=== PATIENT | female | born 1945 | race Caucasian/White ===

== ENCOUNTER 2018-04-25 11:20 | Inpatient (IN) | payer OTHER, BC ==
--- NOTE | 2018-04-25 12:20 | PDOC ---
History of Present Illness - General History Source: Patient Exam Limitations: No Limitations - History of Present Illness Initial Comments: 04/25/18 12:56 Pt is a 72yo F with PMH of HTN, Diverticulosis/Diverticulitis s/p partial colectomy s/p resection, CHF presenting to ED with complaints of diarrhea [id number]. Pt states that the diarrhea started after she was taking Levaquin for skin sores. She was taking vancomycin because she had a history of C. Diff. After 1 month course of vancomycin which was completed last week, pt states she still has diarrhea. She has about 10 bowel movements/day which she describes as liquid. Endorses weakness and chills last night. Denies bloody/tarry stools, nausea, vomiting, decreased PO intake, chest pain, sob, fevers, distention, recent travel, syncope. PMD: Din GI: Lantin ID: Evelio PMH: see hpi PSH: see hpi, appendectomy, cholecystectomy Meds: see med rec Allergies: PCN, Sulfa, tetracycline Social: denies <Thu Mederos - Last Filed: 04/25/18 13:05> <Mc Mcelroy - Last Filed: 04/25/18 16:12> - General Chief Complaint: Diarrhea Stated Complaint: DEHYDRATION / DIARRHEA Time Seen by Provider: 04/25/18 12:17 Past History - Past Medical History Anemia: Yes Asthma: No Cancer: No Cardiac Disorders: Yes (MVP) CVA: No COPD: No CHF: Yes Dementia: No Diabetes: No GI Disorders: Yes (diverticulitis) Disorders: No HTN: Yes Hypercholesterolemia: No Liver Disease: No Seizures: No Thyroid Disease: No - Surgical History Abdominal Surgery: Yes Appendectomy: Yes (colonoscopy/egd) Cardiac Surgery: No Cholecystectomy: No Lung Surgery: No Neurologic Surgery: No Orthopedic Surgery: No - Suicide/Smoking/Psychosocial Hx Smoking Status: No Smoking History: Never smoked Number of Cigarettes Smoked Daily: 0 Hx Alcohol Use: No Drug/Substance Use Hx: No Substance Use Type: None Hx Substance Use Treatment: No <Thu Mederos - Last Filed: 04/25/18 13:05> <Mc Mcelroy - Last Filed: 04/25/18 16:12> - Past Medical History Allergies/Adverse Reactions: Allergies Allergy/AdvReac Type Severity Reaction Status Date / Time Penicillins Allergy Intermediate Rash Verified 04/25/18 11:32 Sulfa (Sulfonamide Allergy Intermediate Rash Verified 04/25/18 11:32 Antibiotics) tetracycline [Tetracycline] Allergy Verified 04/25/18 11:32 Home Medications: Ambulatory Orders Calcium Carbonate/Vitamin D3 [Oyster Shell Calcium 500+D Tab] 1 each PO DAILY Furosemide [Lasix -] 20 mg PO DAILY 02/21/13 Zinc Sulfate [Orazinc -] 220 mg PO DAILY #0 capsule 02/24/13 Multivitamin [Multivitamins] 1 cap PO DAILY 08/02/13 Ascorbic Acid [Vitamin C -] 500 mg PO DAILY 04/25/18 Eluxadoline [Viberzi] 100 mg PO DAILY 04/25/18 Ibuprofen [Motrin -] 600 mg PO BID 04/25/18 Metoprolol Tartrate [Lopressor -] 50 mg PO DAILY 04/25/18 Omeprazole 40 mg PO DAILY 04/25/18 Review of Systems - Review of Systems Constitutional: Yes: Chills, Weakness. No: Fever, Loss of Appetite HEENTM: No: Symptoms Reported Respiratory: No: Cough, Shortness of Breath Cardiac (ROS): No: Chest Pain, Edema, Lightheadedness, Palpitations, Syncope ABD/GI: Yes: See HPI, Diarrhea. No: Blood Streaked Bowels, Constipated, Nausea , Poor Appetite, Poor Fluid Intake, Rectal Bleeding, Vomiting, Abdominal cramping, Tarry Stools : No: Burning, Frequency, Flank Pain Musculoskeletal: No: Back Pain, Joint Pain, Muscle Pain Integumentary: No: Rash Neurological: No: Headache, Numbness, Tingling <Thu Mederos - Last Filed: 04/25/18 13:05> *Physical Exam - Vital Signs Last Vital Signs Temp Pulse Resp BP Pulse Ox 99.6 F 101 H 20 125/65 99 04/25/18 11:27 04/25/18 11:27 04/25/18 11:27 04/25/18 11:27 04/25/18 11:27 <Thu Mederos - Last Filed: 04/25/18 13:05> - Vital Signs Last Vital Signs Temp Pulse Resp BP Pulse Ox 99.6 F 87 18 135/61 96 04/25/18 11:27 04/25/18 15:48 04/25/18 15:48 04/25/18 15:48 04/25/18 15:48 <Mc Mcelroy - Last Filed: 04/25/18 16:12> Moderate Sedation - Procedure Monitoring Vital Signs: Procedure Monitoring Vital Signs Temperature 99.6 F 04/25/18 11:27 Pulse Rate 101 H 04/25/18 11:27 Respiratory Rate 20 04/25/18 11:27 Blood Pressure 125/65 04/25/18 11:27 O2 Sat by Pulse Oximetry (%) 99 04/25/18 11:27 <Thu Mederos - Last Filed: 04/25/18 13:05> - Procedure Monitoring Vital Signs: Procedure Monitoring Vital Signs Temperature 99.6 F 04/25/18 11:27 Pulse Rate 87 04/25/18 15:48 Respiratory Rate 18 04/25/18 15:48 Blood Pressure 135/61 04/25/18 15:48 O2 Sat by Pulse Oximetry (%) 96 04/25/18 15:48 <Mc Mcelroy - Last Filed: 04/25/18 16:12> ED Treatment Course - LABORATORY CBC & Chemistry Diagram: 04/25/18 12:20 04/25/18 12:20 <Thu Mederos - Last Filed: 04/25/18 13:05> - LABORATORY CBC & Chemistry Diagram: 04/25/18 12:20 04/25/18 12:20 - ADDITIONAL ORDERS Additional order review: Laboratory Results 04/25/18 04/25/18 04/25/18 12:37 12:30 12:20 VBG pH 7.41 POC VBG pCO2 37.2 L POC VBG pO2 73.0 H Mixed VBG HCO3 23.3 Sodium 141 Potassium 4.2 Chloride 108 H Carbon Dioxide 23 Anion Gap 10 BUN 20 H Creatinine 1.7 H Creat Clearance w eGFR 29.46 Random Glucose 131 H Lactic Acid 1.7 Calcium 8.7 Total Bilirubin 0.5 AST 46 H ALT 40 Alkaline Phosphatase 160 H Total Protein 7.6 Albumin 3.6 04/25/18 12:20 RBC 6.14 H MCV 60.7 L MCHC 33.1 RDW 16.3 H MPV 9.4 Neutrophils % 78.3 Lymphocytes % 11.6 Monocytes % 8.9 Eosinophils % 0.7 Basophils % 0.5 - Medications Given in the ED: ED Medications Discontinued Medications Generic Name Dose Route Start Last Admin Trade Name Lucrecia PRN Reason Stop Dose Admin Sodium Chloride 500 mls @ 500 mls/hr 04/25/18 12:49 04/25/18 13:05 Normal Saline - IV 04/25/18 13:48 500 mls/hr ASDIR STA Administration Ceftriaxone Sodium 1 gm/ 100 mls @ 200 mls/hr 04/25/18 14:47 04/25/18 15:55 Dextrose IVPB 04/25/18 15:16 200 mls/hr ONCE ONE Administration Protocol <Mc Mcelroy - Last Filed: 04/25/18 16:12> Medical Decision Making - Medical Decision Making 04/25/18 13:00 Pt is a 72yo F with PMH of HTN, Diverticulosis/Diverticulitis s/p partial colectomy s/p resection, CHF presenting to ED with complaints of diarrhea [id number]. Pt states that the diarrhea started after she was taking Levaquin for skin sores. She was taking vancomycin because she had a history of C. Diff. After 1 month course of vancomycin which was completed last week, pt states she still has diarrhea. She has about 10 bowel movements/day which she describes as liquid. Endorses chills last night. Denies bloody/tarry stools, nausea, vomiting , decreased PO intake, chest pain, sob, fevers, distention, syncope, recent travel. Vitals: 99.7 oral temp, HR 101 PE: slight RLQ abdominal tenderness Ddx includes: resistant C.Diff, other infectious diarrhea, colitis -Pt is tolerating PO, is ambulatory, has good follow up. Has episodes of incontinence however pt states that is due to decreased rectal tone as a result of surgeries. -cbc, cmp, lactate, lipase, blood cultures, vbg, c.diff toxin, stool culture -IV fluids -CTAP <Thu Mederos - Last Filed: 04/25/18 13:05> *DC/Admit/Observation/Transfer <Thu Mederos - Last Filed: 04/25/18 13:05> - Discharge Dispostion Decision to Admit order: Yes <Mc Mcelroy - Last Filed: 04/25/18 16:12> Diagnosis at time of Disposition: MARIANN (acute kidney injury) Diarrhea Qualifiers: Diarrhea type: unspecified type Qualified Code(s): R19.7 - Diarrhea, unspecified - Discharge Dispostion Condition at time of disposition: Guarded
[2018-04-25 12:33] LABS: VENOUS PC02 37.2 mmHg (38-52); VENOUS PH 7.41 (7.32-7.42)
[2018-04-25 12:37] LABS: BASO % 0.5 % (0-2.0); EOS % 0.7 % (0-4.5); HEMATOCRIT 37.3 % (32.4-45.2); HEMOGLOBIN 12.3 GM/dL (10.7-15.3); LYMPH % 11.6 % (8-40); MCH 20.1 pg (25.7-33.7); MCHC 33.1 g/dl (32.0-36.0); MEAN CELL VOLUME 60.7 fl (80-96); MEAN PLT VOLUME 9.4 fl (7.5-11.1); MONO % 8.9 % (3.8-10.2); NEUT % 78.3 % (42.8-82.8); PLATELET COUNT 306 K/MM3 (134-434); RBC 6.14 M/mm3 (3.60-5.2); RDW 16.3 % (11.6-15.6); WHITE BLOOD COUNT 16.7 K/mm3 (4.0-10.0)
--- NOTE | 2018-04-25 12:40 | PDOC ---
Attending Attestation - Resident Resident Name: Thu Mederos - ED Attending Attestation I have performed the following: I have examined & evaluated the patient, The case was reviewed & discussed with the resident, I agree w/resident's findings & plan, Exceptions are as noted - HPI HPI: 04/25/18 12:40 72y F hx of rectovesicular fisutla s/p repair c/b cdiff several years ago, anemia, chf, htn, presents with approx 1 month of persistent diarrhea after starting levaquin for a skin wound in february. Pt has been following up with dr Mccall and was on 1 month of vancomycin starting in early march. Her diarrhea has not improved and she feels it is inceasing in frequency and she notes it is coming out even when she is standing or turning in bed. She damian any fever/chills, abd pain, back pain, cp, sob, cough. No blood or melena in the stool, it is watery and yellow/orange in color. PMD; Dr. Cisse GI: Dr Mccall - Physicial Exam PE: 04/25/18 14:46 GENERAL: The patient is awake, alert, and fully oriented, Nontoxic - in no acute distress. HEAD: Normocephalic, atraumatic. EYES: extraocular movements intact, sclera anicteric, conjunctiva clear. ENT: Normal voice, Moist mucous membranes. NECK: Normal range of motion, supple LUNGS: Breath sounds equal, clear to auscultation bilaterally. No wheezes, no rhonchi, no rales. HEART: Regular rate and rhythm, faint systolic murmer ABDOMEN: Mild diffuse right lower quadrant tenderness no rebound or guarding, negative Galvin's EXTREMITIES: Normal range of motion, moving all 4 extremities spontaneously and symmetrically NEUROLOGICAL: No facial assymetry, Normal speech, PSYCH: Normal mood, normal affect. SKIN: Warm, Dry, normal turgor, - Medical Decision Making 04/25/18 14:46 ddx: cdiff, colitis labs reviewed noted for leukocytosis cdiff antigen sent case dw dr. mccall - recommends admissio as pt has a leuckytosis and intractbile dairrhea cr noted for mild france Heart Score/ECG Review - ECG Impressions Comment:: 04/25/18 14:47 Twelve-lead EKG was performed and reviewed by me. There is normal sinus rhythm with a normal rate. Rate of 85 Normal axis
[2018-04-25] MEDS ORDERED: SODIUM CHLORIDE 500 ML IV STA (12:49)
[2018-04-25 13:12] LABS: ALBUMIN 3.6 g/dl (3.4-5.0); ALK PHOS 160 U/L (45-117); ANION GAP 10 MMOL/L (8-16); BILIRUBIN,TOTAL 0.5 mg/dL (0.2-1); BLOOD UREA NITROGEN 20 mg/dL (7-18); CALCIUM 8.7 mg/dL (8.5-10.1); CHLORIDE 108 mmol/L (98-107); CO2 23 mmol/L (21-32); CREATININE 1.7 mg/dL (0.55-1.3); GLUCOSE,RANDOM 131 mg/dL (74-106); POTASSIUM 4.2 mmol/L (3.5-5.1); SGOT/AST 46 U/L (15-37); SGPT/ALT 40 U/L (13-61); SODIUM 141 mmol/L (136-145); TOT PROT 7.6 g/dl (6.4-8.2)
[2018-04-25] MEDS ORDERED: CEFTRIAXONE 1 GM in DEXTROSE 5%-WATER - 100 ML IVPB ONE ×2 (14:06→14:47)
--- NOTE | 2018-04-25 15:11 | HP ---
CHIEF COMPLAINT:diarrhea PCP:Dr. Cisse HISTORY OF PRESENT ILLNESS: Patient is a 72 year old female with past medical history of HTN, Diverticulosis /Diverticulitis s/p partial colectomy, Rectovaginal fistula s/p resection, s/p ileostomy s/p reversal, hx of C. diff infection (2014) and CHF, presented with persistent diarrhea for 1 month. Patient reported diarrhea started after she took Levaquin for skin sores about 2 months ago, which she completed for 10 days. Patient was seen by Dr. Navarro, where she was diagnosed to have C. diff infection and was started on PO VAncomycin for 1 month, which she has completed about a week ago. Patient reported her diarrhea did not resolve, having about at least 10 episodes of loose watery bowel movement per day. Patient denies any fever, chills, headache, dizziness, chest pain, SOB, abdominal pain, urinary symptoms. Denies weight loss or loss of appetite, no nausea or vomiting. ER course was notable for: (1)WBC 16.7 (2)Ceftriaxone 1gm, PO vancomycin 250q6h (3)CT abdomen/pelvis: diffuse colitis Recent Travel:denies PAST MEDICAL HISTORY: HTN Diverticulosis/Diverticulitis s/p partial colectomy Irritable bowel syndrome CHF PAST SURGICAL HISTORY: partial colectomy s/p colostomy reversal s/p rectovaginal fistula resection s/p ileostomy reversal Social History: Smoking:denies Alcohol:denies Drugs: denies Family History: Allergies Penicillins Allergy (Intermediate, Verified 04/25/18 11:32) Rash Sulfa (Sulfonamide Antibiotics) Allergy (Intermediate, Verified 04/25/18 11:32) Rash tetracycline [Tetracycline] Allergy (Verified 04/25/18 11:32) HOME MEDICATIONS: Home Medications Medication Instructions Recorded Calcium Carbonate/Vitamin D3 1 each PO DAILY 02/21/13 [Oyster Shell Calcium 500+D Tab] Furosemide [Lasix -] 20 mg PO DAILY 02/21/13 Zinc Sulfate [Orazinc -] 220 mg PO DAILY #0 capsule 02/24/13 Multivitamin [Multivitamins] 1 cap PO DAILY 08/02/13 Ascorbic Acid [Vitamin C -] 500 mg PO DAILY 04/25/18 Eluxadoline [Viberzi] 100 mg PO DAILY 04/25/18 Ibuprofen [Motrin -] 600 mg PO BID 04/25/18 Metoprolol Tartrate [Lopressor -] 50 mg PO DAILY 04/25/18 Omeprazole 40 mg PO DAILY 04/25/18 REVIEW OF SYSTEMS CONSTITUTIONAL: Absent: fever, chills, diaphoresis, generalized weakness, malaise, loss of appetite, weight change HEENT: Absent: rhinorrhea, nasal congestion, throat pain, throat swelling, difficulty swallowing, mouth swelling, ear pain, eye pain, visual changes CARDIOVASCULAR: Absent: chest pain, syncope, palpitations, irregular heart rate, lightheadedness , peripheral edema RESPIRATORY: Absent: cough, shortness of breath, dyspnea with exertion, orthopnea, wheezing, stridor, hemoptysis GASTROINTESTINAL: Absent: abdominal pain, abdominal distension, nausea, vomiting, diarrhea, constipation, melena, hematochezia GENITOURINARY: Absent: dysuria, frequency, urgency, hesitancy, hematuria, flank pain, genital pain MUSCULOSKELETAL: Absent: myalgia, arthralgia, joint swelling, back pain, neck pain SKIN: Absent: rash, itching, pallor HEMATOLOGIC/IMMUNOLOGIC: Absent: easy bleeding, easy bruising, lymphadenopathy, frequent infections ENDOCRINE: Absent: unexplained weight gain, unexplained weight loss, heat intolerance, cold intolerance NEUROLOGIC: Absent: headache, focal weakness or paresthesias, dizziness, unsteady gait, seizure, mental status changes, bladder or bowel incontinence PSYCHIATRIC: Absent: anxiety, depression, suicidal or homicidal ideation, hallucinations. PHYSICAL EXAMINATION Vital Signs - 24 hr 04/25/18 11:27 Temperature 99.6 F Pulse Rate 101 H Respiratory 20 Rate Blood Pressure 125/65 O2 Sat by Pulse 99 Oximetry (%) GENERAL: Awake, alert, and fully oriented, in no acute distress. HEAD: Normal with no signs of trauma. EYES: PERRLA, EOMI, sclera anicteric, conjunctiva clear. EARS, NOSE, THROAT: Ears normal, oropharynx clear without exudates. Dry mucous membranes. NECK: Normal range of motion, supple without lymphadenopathy, JVD, or masses. LUNGS: Breath sounds equal, clear to auscultation bilaterally. HEART: Regular rate and rhythm, normal S1 and S2 without murmur, rub or gallop. ABDOMEN: Soft, +RLQ tenderness, not distended, normoactive bowel sounds, no guarding, no rebound. MUSCULOSKELETAL: Normal range of motion at all joints. No bony deformities or tenderness. No CVA tenderness. UPPER EXTREMITIES: 2+ pulses, warm, well-perfused. No peripheral edema. LOWER EXTREMITIES: 2+ pulses, warm, well-perfused. No peripheral edema. NEUROLOGICAL: Cranial nerves II-XII intact. Motor 5/5, sensation intact on all extremities. Normal speech. Gait not observed. PSYCHIATRIC: Cooperative. Good eye contact. Appropriate mood and affect. SKIN: Warm, dry, normal turgor, no rashes or lesions noted. Laboratory Results - last 24 hr 04/25/18 04/25/18 04/25/18 12:20 12:20 12:30 WBC 16.7 H RBC 6.14 H Hgb 12.3 Hct 37.3 D MCV 60.7 L MCH 20.1 L D MCHC 33.1 RDW 16.3 H Plt Count 306 D MPV 9.4 Absolute Neuts (auto) 13.1 H Neutrophils % 78.3 Lymphocytes % 11.6 Monocytes % 8.9 Eosinophils % 0.7 Basophils % 0.5 Nucleated RBC % 0 VBG pH 7.41 POC VBG pCO2 37.2 L POC VBG pO2 73.0 H Mixed VBG HCO3 23.3 Sodium 141 Potassium 4.2 Chloride 108 H Carbon Dioxide 23 Anion Gap 10 BUN 20 H Creatinine 1.7 H Creat Clearance w eGFR 29.46 Random Glucose 131 H Lactic Acid Calcium 8.7 Total Bilirubin 0.5 AST 46 H ALT 40 Alkaline Phosphatase 160 H Total Protein 7.6 Albumin 3.6 04/25/18 12:37 WBC RBC Hgb Hct MCV MCH MCHC RDW Plt Count MPV Absolute Neuts (auto) Neutrophils % Lymphocytes % Monocytes % Eosinophils % Basophils % Nucleated RBC % VBG pH POC VBG pCO2 POC VBG pO2 Mixed VBG HCO3 Sodium Potassium Chloride Carbon Dioxide Anion Gap BUN Creatinine Creat Clearance w eGFR Random Glucose Lactic Acid 1.7 Calcium Total Bilirubin AST ALT Alkaline Phosphatase Total Protein Albumin ASSESSMENT/PLAN: Patient is a 72 year old female with past medical history of HTN, Diverticulosis /Diverticulitis s/p partial colectomy, Rectovaginal fistula s/p resection, s/p ileostomy s/p reversal, hx of C. diff infection (2014) and CHF #Diarrhea likely 2/2 infectious colitis, Hx of C. diff -CT abdomen/pelvis: Limited study with findings consistent with diffuse colitis. There is also perirectal lymphadenopathy of uncertain etiology. -Leukocytosis (WBC 16.7) -Stool culture, stool C. diff ordered -Blood cultures pending -Gentle hydration with IV 1/2NS -Continue PO Vancomycin 250mg q6h -IV Ceftriaxone 1gm daily -IV Flagyl 500mg q8h -Bacid 1 tab PO BID -GI (Dr. Navarro) consulted. -ID (Dr. Carreon) consulted. #Hypertension: chronic, controlled -Continue home medications #CHF -Not in acute exacerbation -will continue to monitor -Last echo (2014): mild TR, mild mitral annular calcification, RV systolic pressure elevated at 50-60mmHg #FEN -IV 1/2 NS @75cc/hr -Electrolytes wnl, routine bmp monitoring -Sodium controlled diet #Prophylaxis -Heparin 5000units sq daily #Disposition -Full code -Admit to med-surg Visit type - Emergency Visit Emergency Visit: Yes ED Registration Date: 04/25/18 Care time: The patient presented to the Emergency Department on the above date and was hospitalized for further evaluation of their emergent condition. - New Patient This patient is new to me today: Yes Date on this admission: 04/26/18 - Critical Care Critical Care patient: No
--- NOTE | 2018-04-25 15:31 | EKG ---
Test Reason : Blood Pressure : / mmHG Vent. Rate : 085 BPM Atrial Rate : 085 BPM P-R Int : 142 ms QRS Dur : 088 ms QT Int : 376 ms P-R-T Axes : 046 -04 023 degrees QTc Int : 447 ms NORMAL SINUS RHYTHM POSSIBLE LEFT ATRIAL ENLARGEMENT CANNOT RULE OUT INFERIOR INFARCT , AGE UNDETERMINED CANNOT RULE OUT ANTERIOR INFARCT , AGE UNDETERMINED ABNORMAL ECG WHEN COMPARED WITH ECG OF 14-AUG-2013 09:18, NO SIGNIFICANT CHANGE WAS FOUND Confirmed by OLIVIA PEREZ MD ([id number]) on 04/25/2018 3:31:23 PM Referred By: Confirmed By:OLIVIA PEREZ MD
[2018-04-25] MEDS ORDERED: LACTATED RINGERS SOLUTION 1,000 ML/1,000 ML INFUS.BAG IV SCH (15:45)
[2018-04-25] MEDS ORDERED: CEFTRIAXONE 1 GM/50 ML BAG ONE (15:49)
[2018-04-25] MEDS ORDERED: SODIUM CHLORIDE 0.45% 1,000 ML IV SCH (16:45)
--- NOTE | 2018-04-25 16:59 | PN ---
Teaching Attending Note Name of Resident: Anusha Sainz ATTENDING PHYSICIAN STATEMENT I saw and evaluated the patient. I reviewed the resident's note and discussed the case with the resident. I agree with the resident's findings and plan as documented. SUBJECTIVE: Patient is a 72yo female with PMhx of cdiff colitis x 1 months, stopped taking oral vancomycin for a week , started to have watery diarrhea. OBJECTIVE: Vital Signs Temperature 99.6 F 04/25/18 11:27 Pulse Rate 87 04/25/18 15:48 Respiratory Rate 18 04/25/18 15:48 Blood Pressure 135/61 04/25/18 15:48 O2 Sat by Pulse Oximetry (%) 99 04/25/18 16:41 Initial Vital Signs Temp Pulse Resp BP Pulse Ox 99.6 F 101 H 20 125/65 99 04/25/18 11:27 04/25/18 11:27 04/25/18 11:27 04/25/18 11:27 04/25/18 11:27 GENERAL: Awake, alert, and fully oriented, in no acute distress. HEAD: Normal with no signs of trauma. EYES: PERRLA, EOMI, sclera anicteric, conjunctiva clear. EARS, NOSE, THROAT: Ears normal, oropharynx clear without exudates. Dry mucous membranes. NECK: Normal range of motion, supple without lymphadenopathy, JVD, or masses. LUNGS: Breath sounds equal, clear to auscultation bilaterally. HEART: Regular rate and rhythm, normal S1 and S2 without murmur, rub or gallop. ABDOMEN: Soft, +RLQ tenderness, not distended, normoactive bowel sounds, no guarding, no rebound. MUSCULOSKELETAL: Normal range of motion at all joints. No bony deformities or tenderness. No CVA tenderness. EXTREMITIES: 2+ pulses, warm, well-perfused. No peripheral edema. NEUROLOGICAL: Cranial nerves II-XII intact. Motor 5/5, sensation intact on all extremities. Normal speech. Gait not observed. PSYCHIATRIC: Cooperative. Good eye contact. Appropriate mood and affect. SKIN: Warm, dry, normal turgor, no rashes or lesions noted. CBCD WBC 16.7 K/mm3 (4.0-10.0) H 04/25/18 12:20 RBC 6.14 M/mm3 (3.60-5.2) H 04/25/18 12:20 Hgb 12.3 GM/dL (10.7-15.3) 04/25/18 12:20 Hct 37.3 % (32.4-45.2) D 04/25/18 12:20 MCV 60.7 fl (80-96) L 04/25/18 12:20 MCHC 33.1 g/dl (32.0-36.0) 04/25/18 12:20 RDW 16.3 % (11.6-15.6) H 04/25/18 12:20 Plt Count 306 K/MM3 (134-434) D 04/25/18 12:20 MPV 9.4 fl (7.5-11.1) 04/25/18 12:20 CMP Sodium 141 mmol/L (136-145) 04/25/18 12:20 Potassium 4.2 mmol/L (3.5-5.1) 04/25/18 12:20 Chloride 108 mmol/L (98-107) H 04/25/18 12:20 Carbon Dioxide 23 mmol/L (21-32) 04/25/18 12:20 Anion Gap 10 MMOL/L (8-16) 04/25/18 12:20 BUN 20 mg/dL (7-18) H 04/25/18 12:20 Creatinine 1.7 mg/dL (0.55-1.3) H 04/25/18 12:20 Creat Clearance w eGFR 29.46 (>60) 04/25/18 12:20 Random Glucose 131 mg/dL (74-106) H 04/25/18 12:20 Calcium 8.7 mg/dL (8.5-10.1) 04/25/18 12:20 Total Bilirubin 0.5 mg/dL (0.2-1) 04/25/18 12:20 AST 46 U/L (15-37) H 04/25/18 12:20 ALT 40 U/L (13-61) 04/25/18 12:20 Alkaline Phosphatase 160 U/L (45-117) H 04/25/18 12:20 Total Protein 7.6 g/dl (6.4-8.2) 04/25/18 12:20 Albumin 3.6 g/dl (3.4-5.0) 04/25/18 12:20 Current Medications Generic Name Dose Route Start Last Admin Trade Name Freq PRN Reason Stop Dose Admin Heparin Sodium (Porcine) 5,000 unit 04/25/18 22:00 Heparin - SQ TID [facility] Metronidazole 500 mg in 100 mls @ 100 mls/hr 04/25/18 18:00 Flagyl 500mg Premixed Ivpb - IVPB Q8H-IV JORGE Sodium Chloride 1,000 mls @ 75 mls/hr 04/25/18 16:45 1/2 Normal Saline IV 04/26/18 06:04 ASDIR [facility] Ceftriaxone Sodium 1 gm/ 50 mls @ 100 mls/hr 04/26/18 10:00 Dextrose IVPB DAILY [facility] Lactobacillus Acidophilus 1 tab 04/25/18 22:00 Bacid - PO BID [facility] Vancomycin HCl 250 mg 04/25/18 18:00 Vancomycin Oral Solution PO Q6HPO [facility] Home Medications Medication Instructions Recorded Calcium Carbonate/Vitamin D3 1 each PO DAILY 02/21/13 [Oyster Shell Calcium 500+D Tab] Furosemide [Lasix -] 20 mg PO DAILY 02/21/13 Zinc Sulfate [Orazinc -] 220 mg PO DAILY #0 capsule 02/24/13 Multivitamin [Multivitamins] 1 cap PO DAILY 08/02/13 Ascorbic Acid [Vitamin C -] 500 mg PO DAILY 04/25/18 Eluxadoline [Viberzi] 100 mg PO DAILY 04/25/18 Ibuprofen [Motrin -] 600 mg PO BID 04/25/18 Metoprolol Tartrate [Lopressor -] 50 mg PO DAILY 04/25/18 Omeprazole 40 mg PO DAILY 04/25/18 -CT abdomen/pelvis: Limited study with findings consistent with diffuse colitis. There is also perirectal lymphadenopathy of uncertain etiology. ASSESSMENT AND PLAN: Patient is a 72 year old female with past medical history of HTN, Diverticulosis /Diverticulitis s/p partial colectomy, Rectovaginal fistula s/p resection, s/p ileostomy s/p reversal, hx of C. diff infection (2014) and CHF, presented with recurrent diarrhea after stopping the vancomycin a week ago. # Acute diffuse colitis: with hx of C. diff: Gentle hydration with IV 1/2NS, continue PO Vancomycin 250mg q6h, IV Ceftriaxone 1gm daily -IV Flagyl 500mg q8h, Bacid 1 tab PO BID, GI (Dr. Navarro) consulted., ID (Dr. Carreon) consulted. #Hypertension: controlled, continue home medications #CHF stable now -Last echo (2014): mild TR, mild mitral annular calcification, RV systolic pressure elevated at 50-60mmHg DVTProphylaxis: Heparin 5000units sq daily Full code Admit to med-surg
[2018-04-25] MEDS: VANCOMYCIN 250 MG/5 ML ORAL SOLUTION PO SCH (17:37)
[2018-04-25] MEDS ORDERED: ACETAMINOPHEN 325 MG TABLET (FP) PO PRN (20:39)
[2018-04-25] MEDS: HEPARIN NA (PORCINE) 5,000 UNITS/ML 1ML VIAL SQ SCH (21:15)
[2018-04-25] MEDS ORDERED: LACTOBACILLUS ACIDOPHILUS 1 TABLET PO SCH (22:00)
[2018-04-26] MEDS: VANCOMYCIN 250 MG/5 ML ORAL SOLUTION PO SCH ×4 (00:57→17:40)
[2018-04-26] MEDS: HEPARIN NA (PORCINE) 5,000 UNITS/ML 1ML VIAL SQ SCH ×4 (05:55→22:20)
--- NOTE | 2018-04-26 06:41 | CON.GI ---
Consult Consult Specialty:: GI Referred by:: Subha Cisse - History of Present Illness History of Present Illness: 72 y/o F with PMH of IBS with diarrhea(on Viberzi), relapsing C.diff, s/p left hemicolectomy secondary to perforated diverticulum, was doing well until 5 weeks ago when she took levaquin for skin infection, She subsequently developed diarrhea. She was started on Vancomycin po with no relief of her symptoms. Over night had 6 bowel movements, watery, non-bloody, awakened by the diarrhea. In the ER the WBC was 16,700. Started on Ceftriaxone and Vancomycin. - Past Medical History Cardio/Vascular: Yes: CHF (Chronic diastolid HF), HTN, Other (Paroxysmal SVT in setting of recent perforated diverticulitis) Gastrointestinal: Yes: Diverticulitis (hx with resection), Diverticulosis (hx) Infectious Disease: Yes: MRSA, VREF (2012), Other (Perforated Diverticulitis) - Past Surgical History Past Surgical History: Yes: Colostomy (hx of multiple washout/extensive adhesion ) - Alcohol/Substance Use Hx Alcohol Use: No History of Substance Use: reports: None - Smoking History Smoking history: Never smoked Aproximately how many cigarettes per day: 0 - Social History Usual Living Arrangement: Custodial ADL: Support Services ([place]) History of Recent Travel: No Home Medications - Allergies Allergies/Adverse Reactions: Allergies Allergy/AdvReac Type Severity Reaction Status Date / Time Penicillins Allergy Intermediate Rash Verified 04/25/18 11:32 Sulfa (Sulfonamide Allergy Intermediate Rash Verified 04/25/18 11:32 Antibiotics) tetracycline [Tetracycline] Allergy Verified 04/25/18 11:32 - Home Medications Home Medications: Ambulatory Orders Calcium Carbonate/Vitamin D3 [Oyster Shell Calcium 500+D Tab] 1 each PO DAILY Furosemide [Lasix -] 20 mg PO DAILY 02/21/13 Zinc Sulfate [Orazinc -] 220 mg PO DAILY #0 capsule 02/24/13 Multivitamin [Multivitamins] 1 cap PO DAILY 08/02/13 Ascorbic Acid [Vitamin C -] 500 mg PO DAILY 04/25/18 Eluxadoline [Viberzi] 100 mg PO DAILY 04/25/18 Ibuprofen [Motrin -] 600 mg PO BID 04/25/18 Metoprolol Tartrate [Lopressor -] 50 mg PO DAILY 04/25/18 Omeprazole 40 mg PO DAILY 04/25/18 Physical Exam-GI Vital Signs: Vital Signs Temperature 99.1 F 04/26/18 02:39 Pulse Rate 84 04/26/18 02:39 Respiratory Rate 20 04/26/18 02:39 Blood Pressure 116/53 L 04/26/18 02:39 O2 Sat by Pulse Oximetry (%) 98 04/25/18 23:13 Constitutional: Yes: Well Nourished Eyes: Yes: Conjunctiva Clear HENT: Yes: Atraumatic Neck: Yes: Trachea Midline Cardiovascular: Yes: Regular Rate and Rhythm Respiratory: Yes: CTA Bilaterally Gastrointestinal Inspection: Yes: Distention ...Palpate: Yes: Soft, Tenderness (--mild diffuse). No: Firm/Rigid, Guarding, Hepatomegaly, Mass, Pulsatile Mass, Splenomegaly ...Percussion: Yes: Tympanitic Labs: CBC, BMP 04/25/18 12:20 04/25/18 12:20 CBC,CMP WBC 16.7 K/mm3 (4.0-10.0) H 04/25/18 12:20 RBC 6.14 M/mm3 (3.60-5.2) H 04/25/18 12:20 Hgb 12.3 GM/dL (10.7-15.3) 04/25/18 12:20 Hct 37.3 % (32.4-45.2) D 04/25/18 12:20 MCV 60.7 fl (80-96) L 04/25/18 12:20 MCH 20.1 pg (25.7-33.7) L D 04/25/18 12:20 MCHC 33.1 g/dl (32.0-36.0) 04/25/18 12:20 RDW 16.3 % (11.6-15.6) H 04/25/18 12:20 Plt Count 306 K/MM3 (134-434) D 04/25/18 12:20 MPV 9.4 fl (7.5-11.1) 04/25/18 12:20 Absolute Neuts (auto) 13.1 K/mm3 (1.5-8.0) H 04/25/18 12:20 Neutrophils % 78.3 % (42.8-82.8) 04/25/18 12:20 Lymphocytes % 11.6 % (8-40) 04/25/18 12:20 Monocytes % 8.9 % (3.8-10.2) 04/25/18 12:20 Eosinophils % 0.7 % (0-4.5) 04/25/18 12:20 Basophils % 0.5 % (0-2.0) 04/25/18 12:20 Nucleated RBC % 0 % (0-0) 04/25/18 12:20 Sodium 141 mmol/L (136-145) 04/25/18 12:20 Potassium 4.2 mmol/L (3.5-5.1) 04/25/18 12:20 Chloride 108 mmol/L (98-107) H 04/25/18 12:20 Carbon Dioxide 23 mmol/L (21-32) 04/25/18 12:20 Anion Gap 10 MMOL/L (8-16) 04/25/18 12:20 BUN 20 mg/dL (7-18) H 04/25/18 12:20 Creatinine 1.7 mg/dL (0.55-1.3) H 04/25/18 12:20 Creat Clearance w eGFR 29.46 (>60) 04/25/18 12:20 Random Glucose 131 mg/dL (74-106) H 04/25/18 12:20 Lactic Acid 1.7 mmol/L (0.4-2.0) 04/25/18 12:37 Calcium 8.7 mg/dL (8.5-10.1) 04/25/18 12:20 Total Bilirubin 0.5 mg/dL (0.2-1) 04/25/18 12:20 AST 46 U/L (15-37) H 04/25/18 12:20 ALT 40 U/L (13-61) 04/25/18 12:20 Alkaline Phosphatase 160 U/L (45-117) H 04/25/18 12:20 Total Protein 7.6 g/dl (6.4-8.2) 04/25/18 12:20 Albumin 3.6 g/dl (3.4-5.0) 04/25/18 12:20 Problem List - Problems (1) Infectious diarrhea Assessment/Plan: R> continue IV Flagyl and Vanco Questran po IV hydration bowel rest Code(s): A09 - INFECTIOUS GASTROENTERITIS AND COLITIS, UNSPECIFIED
[2018-04-26] MEDS ORDERED: CEFTRIAXONE 1,000 MG in DEXTROSE 5%-WATER - 50 ML IVPB SCH (10:00)
[2018-04-26] MEDS ORDERED: CEFTRIAXONE 1 GM in DEXTROSE 5%-WATER - 50 ML IVPB SCH (10:00)
[2018-04-26 10:18] LABS: BASO % 0.4 % (0-2.0); EOS % 0.8 % (0-4.5); HEMATOCRIT 31.8 % (32.4-45.2); HEMOGLOBIN 10.5 GM/dL (10.7-15.3); LYMPH % 12.3 % (8-40); MCH 20.1 pg (25.7-33.7); MCHC 33.1 g/dl (32.0-36.0); MEAN CELL VOLUME 60.7 fl (80-96); MEAN PLT VOLUME 9.7 fl (7.5-11.1); MONO % 7.2 % (3.8-10.2); NEUT % 79.3 % (42.8-82.8); PLATELET COUNT 233 K/MM3 (134-434); RBC 5.23 M/mm3 (3.60-5.2); WHITE BLOOD COUNT 14.8 K/mm3 (4.0-10.0)
[2018-04-26] MEDS: CHOLESTYRAMINE/ASPARTAME 4 GM PACKET PO SCH (10:46)
[2018-04-26] MEDS: DEXTROSE 5%-NORMAL SALINE 1,000 ML IV SCH ×2 (10:48→23:04)
[2018-04-26 11:47] LABS: ALBUMIN 2.8 g/dl (3.4-5.0); ALK PHOS 114 U/L (45-117); ANION GAP 8 MMOL/L (8-16); BILIRUBIN,TOTAL 0.6 mg/dL (0.2-1); BLOOD UREA NITROGEN 14 mg/dL (7-18); CALCIUM 8.4 mg/dL (8.5-10.1); CHLORIDE 108 mmol/L (98-107); CO2 26 mmol/L (21-32); CREATININE 1.4 mg/dL (0.55-1.3); GLUCOSE,RANDOM 117 mg/dL (74-106); MAGNESIUM 1.9 mg/dL (1.8-2.4); PHOSPHOROUS 2.3 mg/dL (2.5-4.9); POTASSIUM 3.1 mmol/L (3.5-5.1); SGOT/AST 21 U/L (15-37); SGPT/ALT 38 U/L (13-61); SODIUM 142 mmol/L (136-145); TOT PROT 5.9 g/dl (6.4-8.2)
--- NOTE | 2018-04-26 11:55 | PN ---
Progress Note (short form) - Note Progress Note: ID consult dictated imp/reccd 72 yo female with history of cdiff in 2014, history of IBS on meds since 2016, received levaquin in January for hidradenitis, developed diarrhea and called her GI who gave her po vancomycin liquid- originally the diarrhea improved, then over last one week worsened- never had diarrhea at night before non bloody not formed no new meds no fevers or chills no vomiting lives alone no pets no travel probable cdiff await stool studies agree with hydration po vancomycin/iv metronidazole for now GI f/u for perirectal adenopathy as well noted on ct scan history of IBS- on viberzi since 2017 chronic omeprozole use as well Problem List - Problems (1) Diarrhea Code(s): R19.7 - DIARRHEA, UNSPECIFIED Qualifiers: Diarrhea type: unspecified type Qualified Code(s): R19.7 - Diarrhea, unspecified (2) MARIANN (acute kidney injury) Code(s): N17.9 - ACUTE KIDNEY FAILURE, UNSPECIFIED
--- NOTE | 2018-04-26 14:16 | CONS ---
DATE OF CONSULTATION: DATE OF DICTATION: 04/26/2018 REQUESTING PHYSICIAN: Hospitalist service HISTORY: This is a 72-year-old woman. She is a patient of Dr. Cisse. About 4-6 weeks back she developed daily diarrhea, several episodes nonbloody but not at night with some fecal incontinence. She had previously received a 10-day course of Levaquin by her PMD for a skin infection. She also has a prior history of Clostridium difficile in 2014. She was concerned she was having a repeat Clostridium difficile infection, so she called her hub associate and was prescribed oral vancomycin. She states she took it for 3 weeks. Diarrhea worsened and then she started having it at night with more incontinence. She has no fevers or chills. She has no abdominal pain. She has had no nausea, vomiting, or dysuria. Interestingly, she has not had any weight loss either. PAST MEDICAL HISTORY: Notable for hypertension. She has a prior history of diverticulosis and diverticulitis. Irritable bowel syndrome. CHF. She has a history of rectovaginal fistula. PAST SURGICAL HISTORY: In 2012 she had ruptured diverticulitis. Had a colostomy then reversal followed by an ileostomy then reversal. She reports having had a total of 5 surgeries including rectovaginal fistula repair. She reports Clostridium difficile infection in 2014. As well, she has been on treatment with Viberzi for IBS since 2016 when the drug was approved. ALLERGIES: She is allergic to PENICILLIN, SULFA, and TETRACYCLINE. MEDICATIONS: At home include calcium with vitamin D, Lasix, zinc, multivitamins, vitamin C, Viberzi, Motrin, Lopressor, and omeprazole. SOCIAL HISTORY: Her PMD is Dr. Cisse. Her GI doctor is Dr. Navarro. She lives alone. No history of cigarette or substance use. She did not recall any unusual foods. She has no pets. There is no history of any travel. REVIEW OF SYSTEMS: Notable for nonbloody diarrhea. PHYSICAL EXAMINATION: General: She is awake and alert. She reports feeling improved. Vital Signs: Her T-max is 99.8. Current temperature is 98.4, pulse 85, blood pressure 139/58, respiratory rate 20. She weighs 72 kg. HEENT: She is normocephalic. Her eyes are anicteric. Neck: Supple. Lungs: Clear to auscultation. Heart: Regular rate and rhythm. Abdomen: Soft and nontender. Extremities: Without edema. Skin: In her perirectal area, she has some soft skin excoriations. DIAGNOSTIC DATA: White count on admission was 16.7, repeat 14.8 this morning, hemoglobin 10.5, platelets 233. BUN 20, creatinine 1.7 yesterday and BUN 14 and creatinine 1.4 today. Liver function tests are normal today. Blood cultures are negative after 24 hours. Stool cultures are pending. CAT scan reveals diffuse colitis. There is also perirectal adenopathy. In summary, this is a 72-year-old female with probable Clostridium difficile colitis. Would await stool studies. Agree with hydration, p.o. vancomycin, and IV metronidazole. Stool studies are pending. GI follow up for perirectal adenopathy as well, which was noted on CAT scan. She has a history of IBS on Viberzi. History of chronic omeprazole use as well. Further recommendations to follow. She reports feeling improved today. We will follow up her stool studies. MIGUEL ANGEL LOAIZA M.D. [id number]
--- NOTE | 2018-04-26 17:27 | PN ---
Physical Exam: SUBJECTIVE: Patient seen and examined at bedside this morning. No acute events overnight. Patient still reports multiple episodes of loose watery stools. Denies fever, chills, headache, dizziness, chest pain, SOB, abdominal pain, urinary symptoms. OBJECTIVE: Vital Signs Period Temp Pulse Resp BP Sys/Yañez Pulse Ox Last 24 Hr 98.1 F-99.8 F 70-85 18-20 116-139/50-68 98-98 GENERAL: Awake, alert, and fully oriented, in no acute distress. HEAD: Normal with no signs of trauma. EYES: PERRLA, EOMI, sclera anicteric, conjunctiva clear. EARS, NOSE, THROAT: Ears normal, oropharynx clear without exudates. Dry mucous membranes. NECK: Normal range of motion, supple without lymphadenopathy, JVD, or masses. LUNGS: Breath sounds equal, clear to auscultation bilaterally. HEART: Regular rate and rhythm, normal S1 and S2 without murmur, rub or gallop. ABDOMEN: Soft, +RLQ tenderness, not distended, normoactive bowel sounds, no guarding, no rebound. MUSCULOSKELETAL: Normal range of motion at all joints. No bony deformities or tenderness. No CVA tenderness. UPPER EXTREMITIES: 2+ pulses, warm, well-perfused. No peripheral edema. LOWER EXTREMITIES: 2+ pulses, warm, well-perfused. No peripheral edema. NEUROLOGICAL: Cranial nerves II-XII intact. Motor 5/5, sensation intact on all extremities. Normal speech. Gait not observed. PSYCHIATRIC: Cooperative. Good eye contact. Appropriate mood and affect. SKIN: Warm, dry, normal turgor, no rashes or lesions noted Laboratory Results - last 24 hr 04/26/18 04/26/18 09:50 09:50 WBC 14.8 H RBC 5.23 H Hgb 10.5 L Hct 31.8 L MCV 60.7 L MCH 20.1 L MCHC 33.1 RDW 16.0 H Plt Count 233 D MPV 9.7 Absolute Neuts (auto) 11.7 H Neutrophils % 79.3 Lymphocytes % 12.3 Monocytes % 7.2 Eosinophils % 0.8 Basophils % 0.4 Nucleated RBC % 0 Sodium 142 Potassium 3.1 L Chloride 108 H Carbon Dioxide 26 Anion Gap 8 BUN 14 Creatinine 1.4 H Creat Clearance w eGFR 36.86 Random Glucose 117 H Calcium 8.4 L Phosphorus 2.3 L Magnesium 1.9 Ferritin 153.0 Total Bilirubin 0.6 AST 21 ALT 38 Alkaline Phosphatase 114 Total Protein 5.9 L Albumin 2.8 L Vitamin B12 738 Serum Folate 70 H Active Medications Generic Name Dose Route Start Last Admin Trade Name Kevq PRN Reason Stop Dose Admin Acetaminophen 650 mg 04/25/18 20:39 04/25/18 20:51 Tylenol - PO 650 mg Q6H PRN Administration FEVER Cholestyramine Resin 4 gm 04/26/18 10:00 04/26/18 10:46 Questran Light Packet - PO 4 gm DAILY JORGE Administration Heparin Sodium (Porcine) 5,000 unit 04/25/18 22:00 04/26/18 15:22 Heparin - SQ Not Given TID JORGE Metronidazole 500 mg in 100 mls @ 100 mls/hr 04/25/18 18:00 04/26/18 10:46 Flagyl 500mg Premixed Ivpb - IVPB 100 mls/hr Q8H-IV JORGE Administration Dextrose/Sodium Chloride 1,000 mls @ 125 mls/hr 04/26/18 06:30 04/26/18 10:48 D5-Ns - IV 04/28/18 14:29 125 mls/hr ASDIR JORGE Administration Vancomycin HCl 250 mg 04/25/18 18:00 04/26/18 12:25 Vancomycin Oral Solution PO 250 mg Q6HPO JORGE Administration ASSESSMENT/PLAN: Patient is a 72 year old female with past medical history of HTN, Diverticulosis /Diverticulitis s/p partial colectomy, Rectovaginal fistula s/p resection, s/p ileostomy s/p reversal, hx of C. diff infection (2014), IBS and CHF #Diarrhea likely 2/2 infectious colitis, Hx of C. diff -CT abdomen/pelvis: Limited study with findings consistent with diffuse colitis. There is also perirectal lymphadenopathy of uncertain etiology. -Leukocytosis (WBC 16.7) -Stool culture, stool C. diff ordered -Blood cultures pending -Gentle hydration with IV 1/2NS -Continue PO Vancomycin 250mg q6h -IV Flagyl 500mg q8h -IV Ceftriaxone 1gm daily discontinued -GI (Dr. Navarro) consulted. Recommendations appreciated. -Mobile diet. No fruit, no vegetable, no dairy -Questran 4gm daily -IV hydration -ID (Dr. Carreon) consulted. Recommendations appreciated. -Probably C.diff -Await stool studies -Cont Po vancomycin and Iv metronidazole -GI follow up for perirectal adenopathy. #Hypertension: chronic, controlled -Continue home medications #CHF -Not in acute exacerbation -will continue to monitor -Last echo (2014): mild TR, mild mitral annular calcification, RV systolic pressure elevated at 50-60mmHg #FEN -IV D5-NS @125cc/hr -Electrolytes wnl, routine bmp monitoring -Sodium controlled diet #Prophylaxis -Heparin 5000units sq daily #Disposition -Full code -Admit to med-surg Visit type - Emergency Visit Emergency Visit: Yes ED Registration Date: 04/25/18 Care time: The patient presented to the Emergency Department on the above date and was hospitalized for further evaluation of their emergent condition. - New Patient This patient is new to me today: No - Critical Care Critical Care patient: No
--- NOTE | 2018-04-26 19:28 | PN ---
Teaching Attending Note Name of Resident: Anusha Sainz ATTENDING PHYSICIAN STATEMENT I saw and evaluated the patient. I reviewed the resident's note and discussed the case with the resident. I agree with the resident's findings and plan as documented. SUBJECTIVE: Patient is feeling better with no acute distress, continues to have diarrhea but less than before. OBJECTIVE: Vital Signs Temperature 98.3 F 04/26/18 17:14 Pulse Rate 74 04/26/18 17:14 Respiratory Rate 20 04/26/18 17:14 Blood Pressure 120/50 L 04/26/18 17:14 O2 Sat by Pulse Oximetry (%) 98 04/26/18 09:00 GENERAL: Awake, alert, and fully oriented, in no acute distress. HEAD: Normal with no signs of trauma. EYES: PERRLA, EOMI, sclera anicteric, conjunctiva clear. EARS, NOSE, THROAT: Ears normal, oropharynx clear without exudates. Dry mucous membranes. NECK: Normal range of motion, supple without lymphadenopathy, JVD, or masses. LUNGS: Breath sounds equal, clear to auscultation bilaterally. HEART: Regular rate and rhythm, normal S1 and S2 without murmur, rub or gallop. ABDOMEN: Soft, mild RLQ tenderness, not distended, normoactive bowel sounds, no guarding, no rebound. MUSCULOSKELETAL: Normal range of motion at all joints. No bony deformities or tenderness. No CVA tenderness. EXTREMITIES: 2+ pulses, warm, well-perfused. No peripheral edema. NEUROLOGICAL: Cranial nerves II-XII intact. Motor 5/5, sensation intact on all extremities. Normal speech. Gait not observed. PSYCHIATRIC: Cooperative. Good eye contact. Appropriate mood and affect. SKIN: Warm, dry, normal turgor, no rashes or lesions noted.CBCD WBC 14.8 K/mm3 (4.0-10.0) H 04/26/18 09:50 RBC 5.23 M/mm3 (3.60-5.2) H 04/26/18 09:50 Hgb 10.5 GM/dL (10.7-15.3) L 04/26/18 09:50 Hct 31.8 % (32.4-45.2) L 04/26/18 09:50 MCV 60.7 fl (80-96) L 04/26/18 09:50 MCHC 33.1 g/dl (32.0-36.0) 04/26/18 09:50 RDW 16.0 % (11.6-15.6) H 04/26/18 09:50 Plt Count 233 K/MM3 (134-434) D 04/26/18 09:50 MPV 9.7 fl (7.5-11.1) 04/26/18 09:50 CMP Sodium 142 mmol/L (136-145) 04/26/18 09:50 Potassium 3.1 mmol/L (3.5-5.1) L 04/26/18 09:50 Chloride 108 mmol/L (98-107) H 04/26/18 09:50 Carbon Dioxide 26 mmol/L (21-32) 04/26/18 09:50 Anion Gap 8 MMOL/L (8-16) 04/26/18 09:50 BUN 14 mg/dL (7-18) 04/26/18 09:50 Creatinine 1.4 mg/dL (0.55-1.3) H 04/26/18 09:50 Creat Clearance w eGFR 36.86 (>60) 04/26/18 09:50 Random Glucose 117 mg/dL (74-106) H 04/26/18 09:50 Calcium 8.4 mg/dL (8.5-10.1) L 04/26/18 09:50 Total Bilirubin 0.6 mg/dL (0.2-1) 04/26/18 09:50 AST 21 U/L (15-37) 04/26/18 09:50 ALT 38 U/L (13-61) 04/26/18 09:50 Alkaline Phosphatase 114 U/L (45-117) 04/26/18 09:50 Total Protein 5.9 g/dl (6.4-8.2) L 04/26/18 09:50 Albumin 2.8 g/dl (3.4-5.0) L 04/26/18 09:50 Current Medications Generic Name Dose Route Start Last Admin Trade Name Freq PRN Reason Stop Dose Admin Acetaminophen 650 mg 04/25/18 20:39 04/25/18 20:51 Tylenol - PO 650 mg Q6H PRN Administration FEVER Cholestyramine Resin 4 gm 04/26/18 10:00 04/26/18 10:46 Questran Light Packet - PO 4 gm DAILY JORGE Administration Heparin Sodium (Porcine) 5,000 unit 04/25/18 22:00 04/26/18 15:22 Heparin - SQ Not Given TID JORGE Metronidazole 500 mg in 100 mls @ 100 mls/hr 04/25/18 18:00 04/26/18 17:40 Flagyl 500mg Premixed Ivpb - IVPB 100 mls/hr Q8H-IV JORGE Administration Dextrose/Sodium Chloride 1,000 mls @ 125 mls/hr 04/26/18 06:30 04/26/18 10:48 D5-Ns - IV 04/28/18 14:29 125 mls/hr ASDIR JORGE Administration Vancomycin HCl 250 mg 04/25/18 18:00 04/26/18 17:40 Vancomycin Oral Solution PO 250 mg Q6HPO JORGE Administration Home Medications Medication Instructions Recorded Calcium Carbonate/Vitamin D3 1 each PO DAILY 02/21/13 [Oyster Shell Calcium 500+D Tab] Furosemide [Lasix -] 20 mg PO DAILY 02/21/13 Zinc Sulfate [Orazinc -] 220 mg PO DAILY #0 capsule 02/24/13 Multivitamin [Multivitamins] 1 cap PO DAILY 08/02/13 Ascorbic Acid [Vitamin C -] 500 mg PO DAILY 04/25/18 Eluxadoline [Viberzi] 100 mg PO DAILY 04/25/18 Ibuprofen [Motrin -] 600 mg PO BID 04/25/18 Metoprolol Tartrate [Lopressor -] 50 mg PO DAILY 04/25/18 Omeprazole 40 mg PO DAILY 04/25/18 CT abdomen/pelvis: Limited study with findings consistent with diffuse colitis. There is also perirectal lymphadenopathy of uncertain etiology. ASSESSMENT AND PLAN: Patient is a 72 year old female with past medical history of HTN, Diverticulosis /Diverticulitis s/p partial colectomy, Rectovaginal fistula s/p resection, s/p ileostomy s/p reversal, hx of C. diff infection (2014) and CHF, presented with recurrent diarrhea after stopping the vancomycin a week ago. # Acute diffuse colitis: with hx of C. diff: On PO Vancomycin 250mg q6h, IV Flagyl 500mg q8h, Bacid was discontinued by Dr. mccall (GI), ID (Dr. Carreon ) consult appreciated. On questeran daily. #Hypertension: controlled, continue home medications #CHF stable now -Last echo (2014): mild TR, mild mitral annular calcification, RV systolic pressure elevated at 50-60mmHg DVTProphylaxis: Heparin 5000units sq daily Full code Admit to med-surg
[2018-04-26] MEDS ORDERED: IBUPROFEN 400 MG TABLET (FP) PO ONE (21:28)
[2018-04-26] MEDS ORDERED: RANITIDINE HCL 150 MG TABLET (FP) PO ONE (21:29)
[2018-04-27] MEDS: VANCOMYCIN 250 MG/5 ML ORAL SOLUTION PO SCH ×3 (00:59→13:42)
[2018-04-27 04:14] LABS: SERUM IRON SATURATION 11 % (15-55); TOTAL IRON BINDING CAPACITY 217 ug/dL (250-450); UIBC 194 ug/dL (118-369)
[2018-04-27] MEDS: HEPARIN NA (PORCINE) 5,000 UNITS/ML 1ML VIAL SQ SCH ×4 (05:57→22:03)
[2018-04-27 07:31] LABS: BASO % 0.3 % (0-2.0); EOS % 1.2 % (0-4.5); HEMATOCRIT 31.2 % (32.4-45.2); HEMOGLOBIN 10.2 GM/dL (10.7-15.3); LYMPH % 14.9 % (8-40); MCHC 32.7 g/dl (32.0-36.0); MEAN CELL VOLUME 60.3 fl (80-96); MEAN PLT VOLUME 9.5 fl (7.5-11.1); MONO % 4.6 % (3.8-10.2); PLATELET COUNT 226 K/MM3 (134-434); RBC 5.18 M/mm3 (3.60-5.2); RDW 15.7 % (11.6-15.6)
[2018-04-27 07:39] LABS: ANION GAP 6 MMOL/L (8-16); BLOOD UREA NITROGEN 12 mg/dL (7-18); CHLORIDE 115 mmol/L (98-107); CO2 23 mmol/L (21-32); CREATININE 1.2 mg/dL (0.55-1.3); GLUCOSE,RANDOM 143 mg/dL (74-106); MCH 19.7 pg (25.7-33.7); POTASSIUM 3.2 mmol/L (3.5-5.1); SODIUM 144 mmol/L (136-145)
[2018-04-27 07:40] LABS: CALCIUM 7.8 mg/dL (8.5-10.1); PHOSPHOROUS 1.9 mg/dL (2.5-4.9)
[2018-04-27] MEDS ORDERED: POTASSIUM CHLORIDE TABS 20 MEQ TABLET.ER (FP) PO ONE (07:45)
[2018-04-27] MEDS ORDERED: NAPH,MB-DB/K PH,MBDB POWDER PACKET PO ONE (07:45)
--- NOTE | 2018-04-27 08:04 | PN ---
Teaching Attending Note Name of Resident: Anusha Sainz ATTENDING PHYSICIAN STATEMENT I saw and evaluated the patient. I reviewed the resident's note and discussed the case with the resident. I agree with the resident's findings and plan as documented. SUBJECTIVE: Patient feels better today, less diarrhea. No fever or chills, no shortness of breath. OBJECTIVE: Vital Signs Temperature 97.8 F 04/27/18 06:00 Pulse Rate 61 04/27/18 06:00 Respiratory Rate 20 04/27/18 06:00 Blood Pressure 119/54 L 04/27/18 06:00 O2 Sat by Pulse Oximetry (%) 98 04/26/18 21:00 GENERAL: Awake, alert, and fully oriented, in no acute distress. HEAD: Normal with no signs of trauma. EYES: PERRLA, EOMI, sclera anicteric, conjunctiva clear. EARS, NOSE, THROAT: Ears normal, oropharynx clear without exudates. Dry mucous membranes. NECK: Normal range of motion, supple without lymphadenopathy, JVD, or masses. LUNGS: Breath sounds equal, clear to auscultation bilaterally. HEART: Regular rate and rhythm, normal S1 and S2 without murmur, rub or gallop. ABDOMEN: Soft, mild RLQ tenderness, not distended, normoactive bowel sounds, no guarding, no rebound. MUSCULOSKELETAL: Normal range of motion at all joints. No bony deformities or tenderness. No CVA tenderness. EXTREMITIES: 2+ pulses, warm, well-perfused. No peripheral edema. NEUROLOGICAL: Cranial nerves II-XII intact. Motor 5/5, sensation intact on all extremities. Normal speech. Gait not observed. PSYCHIATRIC: Cooperative. Good eye contact. Appropriate mood and affect. SKIN: Warm, dry, normal turgor, no rashes or lesions noted CBCD WBC 10.0 K/mm3 (4.0-10.0) 04/27/18 06:40 RBC 5.18 M/mm3 (3.60-5.2) 04/27/18 06:40 Hgb 10.2 GM/dL (10.7-15.3) L 04/27/18 06:40 Hct 31.2 % (32.4-45.2) L 04/27/18 06:40 MCV 60.3 fl (80-96) L 04/27/18 06:40 MCHC 32.7 g/dl (32.0-36.0) 04/27/18 06:40 RDW 15.7 % (11.6-15.6) H 04/27/18 06:40 Plt Count 226 K/MM3 (134-434) 04/27/18 06:40 MPV 9.5 fl (7.5-11.1) 04/27/18 06:40 CMP Sodium 144 mmol/L (136-145) 04/27/18 06:40 Potassium 3.2 mmol/L (3.5-5.1) L 04/27/18 06:40 Chloride 115 mmol/L (98-107) H 04/27/18 06:40 Carbon Dioxide 23 mmol/L (21-32) 04/27/18 06:40 Anion Gap 6 MMOL/L (8-16) L 04/27/18 06:40 BUN 12 mg/dL (7-18) 04/27/18 06:40 Creatinine 1.2 mg/dL (0.55-1.3) 04/27/18 06:40 Creat Clearance w eGFR 44.04 (>60) 04/27/18 06:40 Random Glucose 143 mg/dL (74-106) H 04/27/18 06:40 Calcium 7.8 mg/dL (8.5-10.1) L 04/27/18 06:40 Total Bilirubin 0.6 mg/dL (0.2-1) 04/26/18 09:50 AST 21 U/L (15-37) 04/26/18 09:50 ALT 38 U/L (13-61) 04/26/18 09:50 Alkaline Phosphatase 114 U/L (45-117) 04/26/18 09:50 Total Protein 5.9 g/dl (6.4-8.2) L 04/26/18 09:50 Albumin 2.8 g/dl (3.4-5.0) L 04/26/18 09:50 Current Medications Generic Name Dose Route Start Last Admin Trade Name Freq PRN Reason Stop Dose Admin Acetaminophen 650 mg 04/25/18 20:39 04/25/18 20:51 Tylenol - PO 650 mg Q6H PRN Administration FEVER Cholestyramine Resin 4 gm 04/26/18 10:00 04/26/18 10:46 Questran Light Packet - PO 4 gm DAILY JORGE Administration Heparin Sodium (Porcine) 5,000 unit 04/25/18 22:00 04/27/18 05:57 Heparin - SQ Not Given TID JORGE Metronidazole 500 mg in 100 mls @ 100 mls/hr 04/25/18 18:00 04/27/18 02:58 Flagyl 500mg Premixed Ivpb - IVPB 100 mls/hr Q8H-IV JORGE Administration Dextrose/Sodium Chloride 1,000 mls @ 125 mls/hr 04/26/18 06:30 04/26/18 23:04 D5-Ns - IV 04/28/18 14:29 125 mls/hr ASDIR JORGE Administration Potassium Chloride 40 meq 04/27/18 07:45 K-Dur - PO 04/27/18 07:46 ONCE ONE Potassium Phos/Sodium Phos 1 packet 04/27/18 07:45 Phos-Nak Packet - PO 04/27/18 07:46 ONCE ONE Vancomycin HCl 250 mg 04/25/18 18:00 04/27/18 05:56 Vancomycin Oral Solution PO 250 mg Q6HPO JORGE Administration Home Medications Medication Instructions Recorded Calcium Carbonate/Vitamin D3 1 each PO DAILY 02/21/13 [Oyster Shell Calcium 500+D Tab] Furosemide [Lasix -] 20 mg PO DAILY 02/21/13 Zinc Sulfate [Orazinc -] 220 mg PO DAILY #0 capsule 02/24/13 Multivitamin [Multivitamins] 1 cap PO DAILY 08/02/13 Ascorbic Acid [Vitamin C -] 500 mg PO DAILY 04/25/18 Eluxadoline [Viberzi] 100 mg PO DAILY 04/25/18 Ibuprofen [Motrin -] 600 mg PO BID 04/25/18 Metoprolol Tartrate [Lopressor -] 50 mg PO DAILY 04/25/18 Omeprazole 40 mg PO DAILY 04/25/18 CT abdomen/pelvis: Limited study with findings consistent with diffuse colitis. There is also perirectal lymphadenopathy of uncertain etiology. ASSESSMENT AND PLAN: Patient is a 72 year old female with past medical history of HTN, Diverticulosis /Diverticulitis s/p partial colectomy, Rectovaginal fistula s/p resection, s/p ileostomy s/p reversal, hx of C. diff infection (2014) and CHF, presented with recurrent diarrhea after stopping the vancomycin a week ago. # Acute diffuse colitis: with hx of C. diff: On PO Vancomycin 250mg q6h, will discontinue IV Flagyl 500mg q8h, Bacid was discontinued by Dr. mccall (GI), ID (Dr. Carreon) consult appreciated. On questeran daily. #Hypertension: controlled, continue home medications # Hypokalemia will replete. #CHF stable now -Last echo (2014): mild TR, mild mitral annular calcification, RV systolic pressure elevated at 50-60mmHg DVTProphylaxis: Heparin 5000units sq daily Full code Admit to med-surg
[2018-04-27] MEDS ORDERED: POTASSIUM PHOSPHATE 30 MM in SODIUM CHLORIDE 500 ML IVPB ONE (08:07)
[2018-04-27] MEDS: CHOLESTYRAMINE/ASPARTAME 4 GM PACKET PO SCH (09:39)
[2018-04-27] MEDS: DEXTROSE 5%-NORMAL SALINE 1,000 ML IV SCH (11:56)
--- NOTE | 2018-04-27 13:58 | PN ---
Progress Note (short form) - Note Progress Note: cdiff studies are negative, she notes improvement in her diarrhea but also has stomach upset flagyl has been stopped Vital Signs Period Temp Pulse Resp BP Sys/Yañez Pulse Ox Last 24 Hr 97.8 F-98.3 F 58-82 18-20 119-135/49-58 98-98 cor-rrr lungs clear abd soft,nt ext no edema CBC, BMP 04/27/18 06:40 04/27/18 06:40 Microbiology 04/25/18 12:12 Blood - Peripheral Venous Blood Culture - Preliminary NO GROWTH OBTAINED AFTER 48 HOURS, INCUBATION TO CONTINUE FOR 3 DAYS. 04/25/18 12:12 Blood - Peripheral Venous Blood Culture - Preliminary NO GROWTH OBTAINED AFTER 48 HOURS, INCUBATION TO CONTINUE FOR 3 DAYS. 04/26/18 10:00 Stool Clostridium difficile Antigen (BLANCA) - Final 04/26/18 10:00 Stool Clostridium difficile Toxin Assay - Final 04/26/18 10:00 Stool Salmonella/Shigella Culture - Preliminary NO ENTERIC PATHOGENS, 24 HOURS, ON PRIMARY PLATES 04/26/18 10:00 Stool Yersinia Culture - Preliminary NO ENTERIC PATHOGENS, 24 HOURS, ON PRIMARY PLATES 04/26/18 10:00 Stool Vibrio Culture - Final NO GROWTH OF VIBRIO SPECIES OBTAINED 04/26/18 10:00 Stool Escherichia coli 0157 Culture - Final NO GROWTH OF E COLI 0157 OBTAINED a/p diarrhea/colitis resolving-?cause doubt cdiff with negative stool studies-consider d/c vancomycin (flagyl has been stopped) ?role for questran- is it causing her stomach upset would get stools for ova and parasites check esr/crp needs GI f/u -?need for endoscopy perirectal adenopathy as well noted on ct scan history of IBS- on viberzi since 2017 Problem List - Problems (1) Diarrhea Code(s): R19.7 - DIARRHEA, UNSPECIFIED Qualifiers: Diarrhea type: unspecified type Qualified Code(s): R19.7 - Diarrhea, unspecified (2) MARIANN (acute kidney injury) Code(s): N17.9 - ACUTE KIDNEY FAILURE, UNSPECIFIED
--- NOTE | 2018-04-27 14:46 | PN ---
Physical Exam: SUBJECTIVE: Patient seen and examined at bedside this morning. No acute events overnight. Patient reports diarrhea is much improved, with less watery, more formed stools, occuring less frequently (about 5 times overnight). She reports heartburn as well. Denies fever, chills, nausea, vomiting, chest pain, SOB, abdominal pain, urinary symptoms. OBJECTIVE: Vital Signs Period Temp Pulse Resp BP Sys/Yañez Pulse Ox Last 24 Hr 97.8 F-98.3 F 58-82 18-20 119-135/49-58 98-98 GENERAL: Awake, alert, and fully oriented, in no acute distress. HEAD: Normal with no signs of trauma. EYES: PERRLA, EOMI, sclera anicteric, conjunctiva clear. EARS, NOSE, THROAT: Ears normal, oropharynx clear without exudates. Dry mucous membranes. NECK: Normal range of motion, supple without lymphadenopathy, JVD, or masses. LUNGS: Breath sounds equal, clear to auscultation bilaterally. HEART: Regular rate and rhythm, normal S1 and S2 without murmur, rub or gallop. ABDOMEN: Soft, nontender, not distended, normoactive bowel sounds, no guarding, no rebound. MUSCULOSKELETAL: Normal range of motion at all joints. No bony deformities or tenderness. No CVA tenderness. UPPER EXTREMITIES: 2+ pulses, warm, well-perfused. No peripheral edema. LOWER EXTREMITIES: 2+ pulses, warm, well-perfused. No peripheral edema. NEUROLOGICAL: Cranial nerves II-XII intact. Motor 5/5, sensation intact on all extremities. Normal speech. Gait not observed. PSYCHIATRIC: Cooperative. Good eye contact. Appropriate mood and affect. SKIN: Warm, dry, normal turgor, no rashes or lesions noted Laboratory Results - last 24 hr 04/26/18 04/27/18 04/27/18 09:50 06:40 06:40 WBC 10.0 RBC 5.18 Hgb 10.2 L Hct 31.2 L MCV 60.3 L MCH 19.7 L MCHC 32.7 RDW 15.7 H Plt Count 226 MPV 9.5 Absolute Neuts (auto) 7.9 Neutrophils % 79.0 Lymphocytes % 14.9 D Monocytes % 4.6 Eosinophils % 1.2 Basophils % 0.3 Nucleated RBC % 0 Sodium 144 Potassium 3.2 L Chloride 115 H Carbon Dioxide 23 Anion Gap 6 L BUN 12 Creatinine 1.2 Creat Clearance w eGFR 44.04 Random Glucose 143 H Calcium 7.8 L Phosphorus 1.9 L Magnesium 2.0 Iron 23 L TIBC 217 L Iron Saturation 11 L Active Medications Generic Name Dose Route Start Last Admin Trade Name Freq PRN Reason Stop Dose Admin Acetaminophen 650 mg 04/25/18 20:39 04/25/18 20:51 Tylenol - PO 650 mg Q6H PRN Administration FEVER Celecoxib 100 mg 04/27/18 18:00 Celebrex - PO DAILY@1800 [facility] Cholestyramine Resin 4 gm 04/26/18 10:00 04/27/18 09:39 Questran Light Packet - PO 4 gm DAILY [facility] Administration Heparin Sodium (Porcine) 5,000 unit 04/25/18 22:00 04/27/18 13:45 Heparin - SQ Not Given TID [facility] Dextrose/Sodium Chloride 1,000 mls @ 125 mls/hr 04/26/18 06:30 04/27/18 11:56 D5-Ns - IV 04/28/18 14:29 125 mls/hr ASDIR [facility] Administration Potassium Phosphate 30 mm/ 510 mls @ 62.5 mls/hr 04/27/18 08:07 04/27/18 11: 52 Sodium Chloride IVPB 04/27/18 16:16 62.5 mls/hr ONCE ONE Administration Mupirocin 1 applic 04/27/18 14:00 Bactroban 2% Ointment - TP DAILY [facility] Potassium Chloride 40 meq 04/28/18 12:00 K-Dur - PO 04/28/18 12:01 DAILY [facility] Vancomycin HCl 250 mg 04/25/18 18:00 04/27/18 13:42 Vancomycin Oral Solution PO 250 mg Q6HPO JORGE Administration ASSESSMENT/PLAN: Patient is a 72 year old female with past medical history of HTN, Diverticulosis /Diverticulitis s/p partial colectomy, Rectovaginal fistula s/p resection, s/p ileostomy s/p reversal, hx of C. diff infection (2014), IBS and CHF #Diarrhea likely 2/2 infectious colitis, Hx of C. diff -CT abdomen/pelvis: Limited study with findings consistent with diffuse colitis. There is also perirectal lymphadenopathy of uncertain etiology. -Leukocytosis, improved. -Stool culture pending -C.diff Ag and toxin negative -Blood cultures pending -Gentle hydration with IV 1/2NS -IV Flagyl 500mg q8h discontinued -GI (Dr. Navarro) consulted. Recommendations appreciated. -IV Ceftriaxone 1gm daily x7days -Discontinue PO Vancomycin 250mg q6h -[place] diet. No fruit, no vegetable, no dairy -Questran 4gm daily -IV hydration -ID (Dr. Carreon) consulted. Recommendations appreciated. -Await stool studies. Will add stool O&P, ESR/CRP -Consider d/c PO vancomycin -GI follow up for perirectal adenopathy. #Hypertension: chronic, controlled -Continue home medications #CHF -Not in acute exacerbation -will continue to monitor -Last echo (2014): mild TR, mild mitral annular calcification, RV systolic pressure elevated at 50-60mmHg #FEN -IV D5-NS @125cc/hr -Electrolytes wnl, routine bmp monitoring -Sodium controlled diet #Prophylaxis -Heparin 5000units sq daily #Disposition -Full code -Admit to med-surg Visit type - Emergency Visit Emergency Visit: Yes ED Registration Date: 04/25/18 Care time: The patient presented to the Emergency Department on the above date and was hospitalized for further evaluation of their emergent condition. - New Patient This patient is new to me today: No - Critical Care Critical Care patient: No
--- NOTE | 2018-04-27 16:56 | PN ---
Progress Note, Physician History of Present Illness: Patient examined and case discussed with Dr. Navarro GI FOLLOW UP NOTE Patient examined lying in bed. Patient continues to have diarrhea. She states she had 4 episodes of non-bloody, diarrhea during the night. C-diff neg. Stool culture neg. Complains of experiencing heart burn. - Current Medication List Current Medications: Active Medications Acetaminophen (Tylenol -) 650 mg PO Q6H PRN PRN Reason: FEVER Last Admin: 04/25/18 20:51 Dose: 650 mg Celecoxib (Celebrex -) 100 mg PO DAILY@1800 [facility] Cholestyramine Resin (Questran Light Packet -) 4 gm PO DAILY [facility] Last Admin: 04/27/18 09:39 Dose: 4 gm Heparin Sodium (Porcine) (Heparin -) 5,000 unit SQ TID [facility] Last Admin: 04/27/18 13:45 Dose: Not Given Dextrose/Sodium Chloride (D5-Ns -) 1,000 mls @ 125 mls/hr IV ASDIR [facility] Stop: 04/28/18 14:29 Last Admin: 04/27/18 11:56 Dose: 125 mls/hr Ceftriaxone Sodium 1 gm/ (Dextrose) 100 mls @ 200 mls/hr IVPB DAILY [facility]; Protocol Stop: 05/04/18 10:00 Mupirocin (Bactroban 2% Ointment -) 1 applic TP DAILY [facility] Potassium Chloride (K-Dur -) 40 meq PO DAILY [facility] Stop: 04/28/18 12:01 - Objective Vital Signs: Vital Signs Temperature 97.9 F 04/27/18 14:54 Pulse Rate 82 04/27/18 14:54 Respiratory Rate 18 04/27/18 14:54 Blood Pressure 143/70 04/27/18 14:54 O2 Sat by Pulse Oximetry (%) 98 04/27/18 09:00 Constitutional: Yes: No Distress, Calm Eyes: Yes: Conjunctiva Clear HENT: Yes: Normocephalic Cardiovascular: Yes: Regular Rate and Rhythm Respiratory: Yes: Regular, CTA Bilaterally Gastrointestinal: Yes: Normal Bowel Sounds, Soft, Distention (moderate distention). No: WNL, Abdomen, Obese, Ascites, Hematemesis, Hemorrhoids, Hepatomegaly, Hernia, Hyperactive Bowel Sounds, Hypoactive Bowel Sounds, Melena , Palpable Mass, Pulsatile Mass, Rectal Bleeding, Splenomegaly, Tenderness, Tenderness, Epigastrium, Tenderness, Rebound, Vomiting, Other Neurological: Yes: Alert, Oriented Labs: CBC, BMP 04/27/18 06:40 04/27/18 06:40 Microbiology 04/25/18 12:12 Blood - Peripheral Venous Blood Culture - Preliminary NO GROWTH OBTAINED AFTER 48 HOURS, INCUBATION TO CONTINUE FOR 3 DAYS. 04/25/18 12:12 Blood - Peripheral Venous Blood Culture - Preliminary NO GROWTH OBTAINED AFTER 48 HOURS, INCUBATION TO CONTINUE FOR 3 DAYS. 04/26/18 10:00 Stool Clostridium difficile Antigen (BLANCA) - Final 04/26/18 10:00 Stool Clostridium difficile Toxin Assay - Final 04/26/18 10:00 Stool Salmonella/Shigella Culture - Preliminary NO ENTERIC PATHOGENS, 24 HOURS, ON PRIMARY PLATES 04/26/18 10:00 Stool Yersinia Culture - Preliminary NO ENTERIC PATHOGENS, 24 HOURS, ON PRIMARY PLATES 04/26/18 10:00 Stool Vibrio Culture - Final NO GROWTH OF VIBRIO SPECIES OBTAINED 04/26/18 10:00 Stool Escherichia coli 0157 Culture - Final NO GROWTH OF E COLI 0157 OBTAINED <Emelina Hong - Last Filed: 04/28/18 16:22> - Current Medication List Current Medications: Active Medications Acetaminophen (Tylenol -) 650 mg PO Q6H PRN PRN Reason: FEVER Last Admin: 04/25/18 20:51 Dose: 650 mg Cholestyramine Resin (Questran Light Packet -) 4 gm PO DAILY [facility] Last Admin: 04/28/18 10:42 Dose: 4 gm Heparin Sodium (Porcine) (Heparin -) 5,000 unit SQ TID [facility] Last Admin: 04/28/18 14:17 Dose: Not Given Metronidazole (Flagyl 500mg Premixed Ivpb -) 500 mg in 100 mls @ 100 mls/hr IVPB Q8H-IV JORGE Last Admin: 04/28/18 17:47 Dose: Not Given Ceftriaxone Sodium 2 gm/ (Dextrose) 100 mls @ 200 mls/hr IVPB DAILY JORGE; Protocol Melatonin (Melatonin) 5 mg PO HS PRN PRN Reason: INSOMNIA Last Admin: 04/28/18 00:18 Dose: 5 mg Mupirocin (Bactroban 2% Ointment -) 1 applic TP DAILY JORGE Last Admin: 04/28/18 14:18 Dose: 1 applic Pantoprazole Sodium (Protonix -) 40 mg PO DAILY JORGE Last Admin: 04/28/18 10:42 Dose: 40 mg - Objective Vital Signs: Vital Signs Temperature 100.2 F H 04/28/18 14:00 Pulse Rate 88 04/28/18 14:00 Respiratory Rate 18 04/28/18 14:00 Blood Pressure 132/66 04/28/18 10:00 O2 Sat by Pulse Oximetry (%) 96 04/28/18 09:00 Labs: CBC, BMP 04/28/18 06:20 04/28/18 06:20 <Chandrakant Navarro - Last Filed: 04/28/18 18:15> Problem List - Problems (1) Diarrhea Assessment/Plan: >continue with cholestyramine daily Code(s): R19.7 - DIARRHEA, UNSPECIFIED Qualifiers: Diarrhea type: unspecified type Qualified Code(s): R19.7 - Diarrhea, unspecified (2) Infectious diarrhea Assessment/Plan: > vancomycin discontinued >started on Ceftriaxone 1g IVPB daily for 7 days Code(s): A09 - INFECTIOUS GASTROENTERITIS AND COLITIS, UNSPECIFIED <Emelina Hong - Last Filed: 04/28/18 16:22> - Problems (1) Infectious diarrhea Code(s): A09 - INFECTIOUS GASTROENTERITIS AND COLITIS, UNSPECIFIED <Chandrakant Navarro - Last Filed: 04/28/18 18:15>
[2018-04-27] MEDS ORDERED: PT OWN MED DRAWER 7, Y5N ONE (17:20)
[2018-04-27] MEDS: MUPIROCIN 2% TOPICAL OINTMENT 22 GM TUBE TP SCH (17:21)
[2018-04-27] MEDS ORDERED: CELECOXIB 100 MG CAPSULE PO SCH (18:00)
[2018-04-27] MEDS ORDERED: MELATONIN 5 MG TABLETS PO PRN (23:42)
[2018-04-27] MEDS ORDERED: CELECOXIB 100 MG CAPSULE PO ONE (23:43)
[2018-04-28] MEDS: HEPARIN NA (PORCINE) 5,000 UNITS/ML 1ML VIAL SQ SCH ×3 (05:59→21:25)
[2018-04-28 08:10] LABS: BASO % 0.4 % (0-2.0); EOS % 1.3 % (0-4.5); HEMATOCRIT 30.8 % (32.4-45.2); HEMOGLOBIN 10.3 GM/dL (10.7-15.3); MCH 20.1 pg (25.7-33.7); MCHC 33.5 g/dl (32.0-36.0); MEAN PLT VOLUME 8.7 fl (7.5-11.1); MONO % 8.1 % (3.8-10.2); NEUT % 80.2 % (42.8-82.8); PLATELET COUNT 155 K/MM3 (134-434); RBC 5.13 M/mm3 (3.60-5.2); RDW 16.2 % (11.6-15.6); WHITE BLOOD COUNT 14.8 K/mm3 (4.0-10.0)
[2018-04-28 08:50] LABS: ANION GAP 10 MMOL/L (8-16); BLOOD UREA NITROGEN 10 mg/dL (7-18); CHLORIDE 117 mmol/L (98-107); CO2 19 mmol/L (21-32); GLUCOSE,RANDOM 103 mg/dL (74-106); POTASSIUM 3.4 mmol/L (3.5-5.1); SODIUM 146 mmol/L (136-145)
[2018-04-28 08:51] LABS: CALCIUM 7.9 mg/dL (8.5-10.1); MAGNESIUM 1.7 mg/dL (1.8-2.4); PHOSPHOROUS 3.3 mg/dL (2.5-4.9)
[2018-04-28 09:31] LABS: ERYTHROCYTE SEDIMENTATION RATE 1 mm/hr (0-30)
--- NOTE | 2018-04-28 09:34 | PN ---
Progress Note, Physician History of Present Illness: Patient examined and case discussed with Dr. Navarro GI FOLLOW UP NOTE Patient examined lying in bed. Patient continues to have diarrhea and states it is worsening. She states she had 6 episodes of non-bloody, diarrhea during the night. C-diff neg. Stool culture neg. - Current Medication List Current Medications: Active Medications Acetaminophen (Tylenol -) 650 mg PO Q6H PRN PRN Reason: FEVER Last Admin: 04/25/18 20:51 Dose: 650 mg Celecoxib (Celebrex -) 100 mg PO DAILY@1800 [facility] Last Admin: 04/27/18 18:42 Dose: 100 mg Cholestyramine Resin (Questran Light Packet -) 4 gm PO DAILY [facility] Last Admin: 04/27/18 09:39 Dose: 4 gm Heparin Sodium (Porcine) (Heparin -) 5,000 unit SQ TID [facility] Last Admin: 04/28/18 05:59 Dose: Not Given Dextrose/Sodium Chloride (D5-Ns -) 1,000 mls @ 125 mls/hr IV ASDIR [facility] Stop: 04/28/18 14:29 Last Admin: 04/27/18 11:56 Dose: 125 mls/hr Ceftriaxone Sodium 1 gm/ (Dextrose) 50 mls @ 100 mls/hr IVPB DAILY [facility]; Protocol Stop: 05/04/18 10:00 Melatonin (Melatonin) 5 mg PO HS PRN PRN Reason: INSOMNIA Last Admin: 04/28/18 00:18 Dose: 5 mg Mupirocin (Bactroban 2% Ointment -) 1 applic TP DAILY [facility] Last Admin: 04/27/18 17:21 Dose: 1 applic Pantoprazole Sodium (Protonix -) 40 mg PO DAILY [facility] Potassium Chloride (K-Dur -) 40 meq PO DAILY [facility] Stop: 04/28/18 12:01 - Objective Vital Signs: Vital Signs Temperature 98.6 F 04/28/18 06:04 Pulse Rate 70 04/28/18 06:04 Respiratory Rate 20 04/28/18 06:04 Blood Pressure 120/58 L 04/28/18 06:04 O2 Sat by Pulse Oximetry (%) 98 04/27/18 21:00 Constitutional: Yes: Well Nourished, No Distress, Calm Eyes: Yes: Conjunctiva Clear HENT: Yes: Normocephalic Cardiovascular: Yes: Regular Rate and Rhythm Respiratory: Yes: Regular, CTA Bilaterally Gastrointestinal: Yes: Normal Bowel Sounds, Soft, Distention (moderate), Tenderness (RUQ, RLQ), Other (High tympany). No: WNL, Abdomen, Obese, Ascites, Hematemesis, Hemorrhoids, Hepatomegaly, Hernia, Hyperactive Bowel Sounds, Hypoactive Bowel Sounds, Melena, Palpable Mass, Pulsatile Mass, Rectal Bleeding , Splenomegaly, Tenderness, Epigastrium, Tenderness, Rebound, Vomiting Psychiatric: Yes: Alert, Oriented Labs: CBC, BMP 04/28/18 06:20 04/28/18 06:20 <Emelina Hong - Last Filed: 04/28/18 16:22> - Current Medication List Current Medications: Active Medications Acetaminophen (Tylenol -) 650 mg PO Q6H PRN PRN Reason: FEVER Last Admin: 04/25/18 20:51 Dose: 650 mg Cholestyramine Resin (Questran Light Packet -) 4 gm PO DAILY [facility] Last Admin: 04/28/18 10:42 Dose: 4 gm Heparin Sodium (Porcine) (Heparin -) 5,000 unit SQ TID [facility] Last Admin: 04/28/18 14:17 Dose: Not Given Metronidazole (Flagyl 500mg Premixed Ivpb -) 500 mg in 100 mls @ 100 mls/hr IVPB Q8H-IV JORGE Last Admin: 04/28/18 17:47 Dose: Not Given Ceftriaxone Sodium 2 gm/ (Dextrose) 100 mls @ 200 mls/hr IVPB DAILY [facility]; Protocol Melatonin (Melatonin) 5 mg PO HS PRN PRN Reason: INSOMNIA Last Admin: 04/28/18 00:18 Dose: 5 mg Mupirocin (Bactroban 2% Ointment -) 1 applic TP DAILY [facility] Last Admin: 04/28/18 14:18 Dose: 1 applic Pantoprazole Sodium (Protonix -) 40 mg PO DAILY [facility] Last Admin: 04/28/18 10:42 Dose: 40 mg Zolpidem Tartrate (Ambien -) 5 mg PO HS PRN PRN Reason: INSOMNIA - Objective Vital Signs: Vital Signs Temperature 100.2 F H 04/28/18 14:00 Pulse Rate 88 04/28/18 14:00 Respiratory Rate 18 04/28/18 14:00 Blood Pressure 132/66 04/28/18 10:00 O2 Sat by Pulse Oximetry (%) 96 02/06/19 09:00 Labs: CBC, BMP 04/28/18 06:20 04/28/18 06:20 <Chandrakant Navarro - Last Filed: 04/28/18 18:20> Problem List - Problems (1) Diarrhea Assessment/Plan: >continue with cholestyramine daily > patient will restart Viberzi 75mg BID > VRE rectal swab and stool O&P was ordered Code(s): R19.7 - DIARRHEA, UNSPECIFIED Qualifiers: Diarrhea type: unspecified type Qualified Code(s): R19.7 - Diarrhea, unspecified (2) Infectious diarrhea Assessment/Plan: > vancomycin discontinued >started on Ceftriaxone 1g IVPB daily for 7 days Code(s): A09 - INFECTIOUS GASTROENTERITIS AND COLITIS, UNSPECIFIED <Emelina Hong - Last Filed: 04/28/18 16:22> - Problems (1) Infectious diarrhea Code(s): A09 - INFECTIOUS GASTROENTERITIS AND COLITIS, UNSPECIFIED <Chandrakant Navarro - Last Filed: 04/28/18 18:20>
[2018-04-28] MEDS ORDERED: CEFTRIAXONE 1 GM in DEXTROSE 5%-WATER - 50 ML IVPB SCH (10:00)
[2018-04-28] MEDS ORDERED: PANTOPRAZOLE 40 MG TABLET (FP) PO SCH (10:00)
[2018-04-28] MEDS ORDERED: PT OWN MED DRAWER 7, Y5N ONE (10:30)
[2018-04-28] MEDS ORDERED: cefTRIAXone SODIUM 1 GM VIAL ONE (10:30)
[2018-04-28] MEDS ORDERED: DEXTROSE 5%-WATER - 50 ML IVPB ONE (10:31)
[2018-04-28] MEDS: CHOLESTYRAMINE/ASPARTAME 4 GM PACKET PO SCH (10:42)
[2018-04-28] MEDS: POTASSIUM CHLORIDE TABS 20 MEQ TABLET.ER (FP) PO SCH ×2 (14:16→14:25)
[2018-04-28] MEDS: DEXTROSE 5%-NORMAL SALINE 1,000 ML IV SCH (14:17)
[2018-04-28] MEDS: MUPIROCIN 2% TOPICAL OINTMENT 22 GM TUBE TP SCH (14:18)
[2018-04-28] MEDS ORDERED: POTASSIUM CHLORIDE ORAL LIQUID 20 MEQ/15 ML PO ONE (14:33)
--- NOTE | 2018-04-28 15:44 | PN ---
Progress Note (short form) - Note Progress Note: vomitied today once, now feels better low grade temp still with loose stools cdiff studies are negative, Vital Signs Period Temp Pulse Resp BP Sys/Yañez Pulse Ox Last 24 Hr 98.3 F-100.2 F 70-88 18-20 120-149/58-67 96-98 cor-rrr lungs decreased bs at bases abd soft,nt +multiple surgical scars ext no edema CBC, BMP 04/28/18 06:20 04/28/18 06:20 Microbiology 04/25/18 12:12 Blood - Peripheral Venous Blood Culture - Preliminary NO GROWTH OBTAINED AFTER 72 HOURS, INCUBATION TO CONTINUE FOR 2 DAYS. 04/25/18 12:12 Blood - Peripheral Venous Blood Culture - Preliminary NO GROWTH OBTAINED AFTER 72 HOURS, INCUBATION TO CONTINUE FOR 2 DAYS. 04/27/18 09:45 Rectal Swab VRE Culture - Preliminary Vanco Resistant Enterococcus 04/26/18 10:00 Stool Clostridium difficile Antigen (BLANCA) - Final 04/26/18 10:00 Stool Clostridium difficile Toxin Assay - Final 04/26/18 10:00 Stool Salmonella/Shigella Culture - Final NO GROWTH OF SALMONELLA OR SHIGELLA SPECIES OBTAINED 04/26/18 10:00 Stool Campylobacter Culture - Final NO GROWTH OF CAMPYLOBACTER SPECIES OBTAINED 04/26/18 10:00 Stool Yersinia Culture - Final NO GROWTH OF YERSINIA SPECIES OBTAINED 04/26/18 10:00 Stool Vibrio Culture - Final NO GROWTH OF VIBRIO SPECIES OBTAINED 04/26/18 10:00 Stool Escherichia coli 0157 Culture - Final NO GROWTH OF E COLI 0157 OBTAINED a/p low grade fever/leukocytosis diarrhea/colitis doubt cdiff with negative stool studies-has been on po vancomycin for one month as outpt ?role for questran- is it causing her stomach upset would get stools for ova and parasites cultures resume rocephin/flagyl for infectious colitis GI f/u ?flex sig perirectal adenopathy as well noted on ct scan history of IBS- on viberzi since 2017-now resumed d/w dr Navarro Problem List - Problems (1) Diarrhea Code(s): R19.7 - DIARRHEA, UNSPECIFIED Qualifiers: Diarrhea type: unspecified type Qualified Code(s): R19.7 - Diarrhea, unspecified (2) MARIANN (acute kidney injury) Code(s): N17.9 - ACUTE KIDNEY FAILURE, UNSPECIFIED
--- NOTE | 2018-04-28 15:58 | PN ---
Teaching Attending Note Name of Resident: Francisco Reyes ATTENDING PHYSICIAN STATEMENT I saw and evaluated the patient. I reviewed the resident's note and discussed the case with the resident. I agree with the resident's findings and plan as documented. SUBJECTIVE: No fever or chills . has mild abd pain , cont othave profound watery diarrhea with mucus OBJECTIVE: NAD CV: RRR, 3/6 SM at base . Lungs: CTAB Abd: soft, old surgical scars. TTP in all quadrants. No rebound tenderness or guarding Ext : L leg circumference > R ( chronic per patient ) ASSESSMENT AND PLAN: 72 y/o lady with h/o C idff colitis x 2, , HTN, diverticulitis, s/p partial colectomy, rectovaginal fistula s/p resection , CHF who presented with diarrhea . 1- Diarrhea, : Neg stool cx and Neg c diff. possibly viral , less likely parasite or collagenous colitis. ? IBS - Abx per ID . - check rota Virus Ag - follow ova and parasite - will d/w GI - IV hydration - replete K, Phos, Mg 2- H/o heart failure : hold lasix in setting of diarrhea . will resume BB if BP is elevated 3- DVT px
[2018-04-28] MEDS ORDERED: CEFTRIAXONE 2 GM in DEXTROSE 5%-WATER 100 ML IVPB SCH (16:00)
[2018-04-28] MEDS ORDERED: MAGNESIUM SULF 50% (8.12 MEQ/2 ML-1 GM VIAL) IVPB ONE (16:05)
--- NOTE | 2018-04-28 17:41 | PN ---
Physical Exam: SUBJECTIVE: Patient seen and examined at bedside this morning. Patient reports increased episodes of loose watery stools, worse than yesterday. She also had low grade fever of 100.2 in the afternoon. Otherwise, denies chills, nausea, vomiting, chest pain, SOB, abdominal pain, urinary symptoms. OBJECTIVE: Vital Signs Period Temp Pulse Resp BP Sys/Yañez Pulse Ox Last 24 Hr 98.6 F-100.2 F 70-88 18-20 120-132/58-66 96-98 GENERAL: Awake, alert, and fully oriented, in no acute distress. HEAD: Normal with no signs of trauma. NECK: Normal range of motion, supple without lymphadenopathy, JVD, or masses. LUNGS: Breath sounds equal, clear to auscultation bilaterally. HEART: Regular rate and rhythm, normal S1 and S2 without murmur, rub or gallop. ABDOMEN: Soft, +RLQ tenderness, not distended, normoactive bowel sounds, no guarding, no rebound. MUSCULOSKELETAL: Normal range of motion at all joints. No bony deformities or tenderness. No CVA tenderness. UPPER EXTREMITIES: 2+ pulses, warm, well-perfused. No peripheral edema. LOWER EXTREMITIES: 2+ pulses, warm, well-perfused. No peripheral edema. NEUROLOGICAL: Cranial nerves II-XII intact. Motor 5/5, sensation intact on all extremities. Normal speech. Gait not observed. PSYCHIATRIC: Cooperative. Good eye contact. Appropriate mood and affect. SKIN: Warm, dry, normal turgor, no rashes or lesions noted Laboratory Results - last 24 hr 04/28/18 04/28/18 06:20 06:20 WBC 14.8 H RBC 5.13 Hgb 10.3 L Hct 30.8 L MCV 60.0 L MCH 20.1 L MCHC 33.5 RDW 16.2 H Plt Count 155 D MPV 8.7 Absolute Neuts (auto) 11.9 H Neutrophils % 80.2 Lymphocytes % 10.0 D Monocytes % 8.1 Eosinophils % 1.3 Basophils % 0.4 Nucleated RBC % 0 Platelet Comment No clumping noted ESR 1 Sodium 146 H Potassium 3.4 L Chloride 117 H Carbon Dioxide 19 L Anion Gap 10 BUN 10 Creatinine 1.0 Creat Clearance w eGFR 54.35 Random Glucose 103 Calcium 7.9 L Phosphorus 3.3 Magnesium 1.7 L C-Reactive Protein 6.9 H Active Medications Generic Name Dose Route Start Last Admin Trade Name Freq PRN Reason Stop Dose Admin Acetaminophen 650 mg 04/25/18 20:39 04/25/18 20:51 Tylenol - PO 650 mg Q6H PRN Administration FEVER Cholestyramine Resin 4 gm 04/26/18 10:00 04/28/18 10:42 Questran Light Packet - PO 4 gm DAILY JORGE Administration Heparin Sodium (Porcine) 5,000 unit 04/25/18 22:00 04/28/18 14:17 Heparin - SQ Not Given TID JORGE Metronidazole 500 mg in 100 mls @ 100 mls/hr 04/28/18 15:45 04/28/18 16:28 Flagyl 500mg Premixed Ivpb - IVPB 100 mls/hr Q8H-IV JORGE Administration Ceftriaxone Sodium 2 gm/ 100 mls @ 200 mls/hr 04/29/18 10:00 Dextrose IVPB DAILY JORGE Protocol Melatonin 5 mg 04/27/18 23:42 04/28/18 00:18 Melatonin PO 5 mg HS PRN Administration INSOMNIA Mupirocin 1 applic 04/27/18 14:00 04/28/18 14:18 Bactroban 2% Ointment - TP 1 applic DAILY JORGE Administration Pantoprazole Sodium 40 mg 04/28/18 10:00 04/28/18 10:42 Protonix - PO 40 mg DAILY JORGE Administration ASSESSMENT/PLAN: Patient is a 72 year old female with past medical history of HTN, Diverticulosis /Diverticulitis s/p partial colectomy, Rectovaginal fistula s/p resection, s/p ileostomy s/p reversal, hx of C. diff infection (2014), IBS and CHF #Diarrhea likely 2/2 infectious colitis, Hx of C. diff -CT abdomen/pelvis: Limited study with findings consistent with diffuse colitis. There is also perirectal lymphadenopathy of uncertain etiology. -Leukocytosis, improved. -Stool culture negative -C.diff Ag and toxin negative -Blood cultures negative -GI (Dr. Navarro) consulted. Recommendations appreciated. -IV Ceftriaxone 1gm daily x7days -Discontinue PO Vancomycin 250mg q6h -[place] diet. No fruit, no vegetable, no dairy -Questran 4gm daily -ID (Dr. Carreon) consulted. Recommendations appreciated. -Await stool studies. Will add stool O&P, ESR/CRP -Resume Rocephin 2gm daily and Flagyl 500mg q8h -GI follow up for perirectal adenopathy. For possible ?flex sig #Hypertension: chronic, controlled -Continue home medications #CHF -Not in acute exacerbation -will continue to monitor -Last echo (2014): mild TR, mild mitral annular calcification, RV systolic pressure elevated at 50-60mmHg #FEN -Not on any standing fluids -Hypokalemia, repleted -routine bmp monitoring -Sodium controlled diet #Prophylaxis -Heparin 5000units sq daily #Disposition -Full code -Admit to med-surg Visit type - Emergency Visit Emergency Visit: Yes ED Registration Date: 04/25/18 Care time: The patient presented to the Emergency Department on the above date and was hospitalized for further evaluation of their emergent condition. - New Patient This patient is new to me today: No - Critical Care Critical Care patient: No
[2018-04-28] MEDS ORDERED: ZOLPIDEM TARTRATE 5 MG TABLET PO PRN (18:16)
--- NOTE | 2018-04-28 18:28 | PN ---
GI Progress Note Subjective: overnight the diarrhea worsened and WBC incresed to 14,000 off Flagyl and Ceftriaxone patient scheduled for flexible sigmoidoscopy but refused at this time has insomnia - Objective Vital Signs: Vital Signs Temperature 100.2 F H 04/28/18 14:00 Pulse Rate 88 04/28/18 14:00 Respiratory Rate 18 04/28/18 14:00 Blood Pressure 132/66 04/28/18 10:00 O2 Sat by Pulse Oximetry (%) 96 04/28/18 09:00 Constitutional: Well Nourished Eyes: Yes: Conjunctiva Clear HENT: Yes: Atraumatic Neck: Yes: Supple Cardiovascular: Yes: Regular Rate and Rhythm Respiratory: Yes: CTA Bilaterally ...Auscultate: No: No Bowel Sounds ...Palpate: Yes: Soft. No: Mass, Pulsatile Mass, Splenomegaly, Tenderness, Tenderness, Epigastium ...Percussion: Yes: Tympanitic Labs: CBC, BMP 04/28/18 06:20 04/28/18 06:20 Problem List - Problems (1) Infectious diarrhea Assessment/Plan: R> restart Ceftriaxone and flagyl d/w Dr Carreon Code(s): A09 - INFECTIOUS GASTROENTERITIS AND COLITIS, UNSPECIFIED
[2018-04-29] MEDS: HEPARIN NA (PORCINE) 5,000 UNITS/ML 1ML VIAL SQ SCH ×3 (05:57→21:40)
[2018-04-29 08:00] LABS: BASO % 0.2 % (0-2.0); EOS % 1.2 % (0-4.5); HEMATOCRIT 28.3 % (32.4-45.2); HEMOGLOBIN 9.3 GM/dL (10.7-15.3); LYMPH % 11.3 % (8-40); MEAN CELL VOLUME 59.4 fl (80-96); MEAN PLT VOLUME 9.6 fl (7.5-11.1); MONO % 5.9 % (3.8-10.2); NEUT % 81.4 % (42.8-82.8); PLATELET COUNT 243 K/MM3 (134-434); RBC 4.77 M/mm3 (3.60-5.2); RDW 16.1 % (11.6-15.6); WHITE BLOOD COUNT 14.4 K/mm3 (4.0-10.0)
[2018-04-29 08:14] LABS: MCH 19.6 pg (25.7-33.7)
[2018-04-29 08:39] LABS: ANION GAP 8 MMOL/L (8-16); BLOOD UREA NITROGEN 6 mg/dL (7-18); CHLORIDE 114 mmol/L (98-107); CO2 22 mmol/L (21-32); CREATININE 1.1 mg/dL (0.55-1.3); GLUCOSE,RANDOM 108 mg/dL (74-106); MAGNESIUM 2.1 mg/dL (1.8-2.4); PHOSPHOROUS 2.6 mg/dL (2.5-4.9); POTASSIUM 3.3 mmol/L (3.5-5.1); SODIUM 145 mmol/L (136-145)
[2018-04-29] MEDS: SODIUM CHLORIDE 1,000 ML IV SCH (08:43)
[2018-04-29] MEDS: PANTOPRAZOLE 40 MG TABLET (FP) PO SCH ×2 (08:44→10:27)
[2018-04-29] MEDS ORDERED: POTASSIUM CHLORIDE ORAL LIQUID 20 MEQ/15 ML PO ONE (09:15)
[2018-04-29] MEDS ORDERED: DEXTROSE 5%-WATER 100 ML IVPB ONE (10:23)
[2018-04-29] MEDS: MUPIROCIN 2% TOPICAL OINTMENT 22 GM TUBE TP SCH (10:27)
[2018-04-29] MEDS: CHOLESTYRAMINE/ASPARTAME 4 GM PACKET PO SCH (10:27)
[2018-04-29] MEDS: CEFTRIAXONE 2 GM in DEXTROSE 5%-WATER 100 ML IVPB SCH (10:28)
[2018-04-29 11:02] LABS: ANISOCYTOSIS 2+; MACROCYTOSIS 0; PLATELET ESTIMATE NORMAL; TEAR DROP CELLS 1+
--- NOTE | 2018-04-29 13:11 | PN ---
Teaching Attending Note Name of Resident: Anusha Sainz ATTENDING PHYSICIAN STATEMENT I saw and evaluated the patient. I reviewed the resident's note and discussed the case with the resident. I agree with the resident's findings and plan as documented. SUBJECTIVE: No fever or chills. diarrhea improved , 2 BMs last night and one soft BM this am . OBJECTIVE: NAD CV: RRR, 3/6 SM at base . Lungs: CTAB Abd: soft, old surgical scars.NT. distended and tympanic abd today. Ext : L leg circumference > R ASSESSMENT AND PLAN: 72 y/o lady with h/o C idff colitis x 2, , HTN, diverticulitis, s/p partial colectomy, rectovaginal fistula s/p resection , CHF who presented with diarrhea . 1- Diarrhea: Neg stool cx and Neg c diff. Abd distended and tympanic today. - check KUB - cont Abx - follow ova and parasite - patient declined flex sig - IV hydration - monitor and replete electrolytes. - follow blood cx - Rota virus Ag 2- H/o heart failure: hold lasix in setting of diarrhea. will resume BB. will confirm type and dosing 3- DVT px
--- NOTE | 2018-04-29 14:23 | PN ---
Physical Exam: SUBJECTIVE: Patient seen and examined at bedside this morning. No acute events overnight. Patient reported improved diarrhea with only 2 episodes overnight. Reported LLQ soreness as well. Otherwise, denies fever, chills, headache, dizziness, chest pain, SOB, urinary symptoms. OBJECTIVE: Vital Signs Period Temp Pulse Resp BP Sys/Yañez Pulse Ox Last 24 Hr 98.6 F-99.6 F 77-84 18-20 118-141/59-73 95-96 GENERAL: Awake, alert, and fully oriented, in no acute distress. HEAD: Normal with no signs of trauma. NECK: Normal range of motion, supple without lymphadenopathy, JVD, or masses. LUNGS: Breath sounds equal, clear to auscultation bilaterally. HEART: Regular rate and rhythm, normal S1 and S2 without murmur, rub or gallop. ABDOMEN: Soft, +LLQ/RLQ tenderness, mildly distended, normoactive bowel sounds, no guarding, no rebound. MUSCULOSKELETAL: Normal range of motion at all joints. No bony deformities or tenderness. No CVA tenderness. UPPER EXTREMITIES: 2+ pulses, warm, well-perfused. No peripheral edema. LOWER EXTREMITIES: 2+ pulses, warm, well-perfused. B/l peripheral edema NEUROLOGICAL: Cranial nerves II-XII intact. Motor 5/5, sensation intact on all extremities. Normal speech. Gait not observed. PSYCHIATRIC: Cooperative. Good eye contact. Appropriate mood and affect. SKIN: Warm, dry, normal turgor, no rashes or lesions noted Laboratory Results - last 24 hr 04/29/18 04/29/18 06:30 06:30 WBC 14.4 H RBC 4.77 Hgb 9.3 L Hct 28.3 L MCV 59.4 L MCH 19.6 L MCHC 33.0 RDW 16.1 H Plt Count 243 D MPV 9.6 D Absolute Neuts (auto) 11.8 H Neutrophils % 81.4 Lymphocytes % 11.3 Monocytes % 5.9 Eosinophils % 1.2 Basophils % 0.2 Nucleated RBC % 0 Hypochromia 1+ Platelet Estimate Normal Polychromasia 1+ Poikilocytosis 2+ Anisocytosis 2+ Microcytosis 2+ Macrocytosis 0 Tear Drop Cells 1+ Luke Cells 1+ Sodium 145 Potassium 3.3 L Chloride 114 H Carbon Dioxide 22 Anion Gap 8 BUN 6 L Creatinine 1.1 Creat Clearance w eGFR 48.69 Random Glucose 108 H Calcium 8.0 L Phosphorus 2.6 Magnesium 2.1 Active Medications Generic Name Dose Route Start Last Admin Trade Name Freq PRN Reason Stop Dose Admin Acetaminophen 650 mg 04/25/18 20:39 04/25/18 20:51 Tylenol - PO 650 mg Q6H PRN Administration FEVER Cholestyramine Resin 4 gm 04/26/18 10:00 04/29/18 10:27 Questran Light Packet - PO 4 gm DAILY JORGE Administration Heparin Sodium (Porcine) 5,000 unit 04/25/18 22:00 04/29/18 05:57 Heparin - SQ Not Given TID JORGE Metronidazole 500 mg in 100 mls @ 100 mls/hr 04/28/18 15:45 04/29/18 11:42 Flagyl 500mg Premixed Ivpb - IVPB 100 mls/hr Q8H-IV JORGE Administration Ceftriaxone Sodium 2 gm/ 100 mls @ 200 mls/hr 04/29/18 10:00 04/29/18 10:28 Dextrose IVPB 200 mls/hr DAILY JORGE Administration Protocol Sodium Chloride 1,000 mls @ 83 mls/hr 04/29/18 08:00 04/29/18 08:43 Normal Saline - IV 83 mls/hr ASDIR JORGE Administration Melatonin 5 mg 04/27/18 23:42 04/28/18 00:18 Melatonin PO 5 mg HS PRN Administration INSOMNIA Mupirocin 1 applic 04/27/18 14:00 04/29/18 10:27 Bactroban 2% Ointment - TP Not Given DAILY JORGE Pantoprazole Sodium 40 mg 04/29/18 07:34 04/29/18 10:27 Protonix - PO Not Given DAILY JORGE Zolpidem Tartrate 5 mg 04/28/18 18:16 Ambien - PO HS PRN INSOMNIA ASSESSMENT/PLAN: Patient is a 72 year old female with past medical history of HTN, Diverticulosis /Diverticulitis s/p partial colectomy, Rectovaginal fistula s/p resection, s/p ileostomy s/p reversal, hx of C. diff infection (2014), IBS and CHF #Diarrhea likely 2/2 infectious colitis, Hx of C. diff -CT abdomen/pelvis: Limited study with findings consistent with diffuse colitis. There is also perirectal lymphadenopathy of uncertain etiology. -AXR: 2 views reveal some air in the stomach with air distended loops of bowel in the mid and lower abdomen which may be slightly thickened. There are pelvic alyse and sutures. There are degenerative changes. The thickening of bowel may be due to a colitis as one of the loops appears to be transverse colon. Follow-up imaging suggested. -Leukocytosis, improving -Rectal swab: VR Ec Faecium (sensitive to only Linezolid) -Stool culture negative -C.diff Ag and toxin negative -Blood cultures negative -GI (Dr. Navarro) consulted. Recommendations appreciated. -Discontinue PO Vancomycin 250mg q6h -[place] diet. No fruit, no vegetable, no dairy -Questran 4gm daily -Patient refused flex sig at this time. -ID (Dr. Carreon) consulted. Recommendations appreciated. -Await stool studies. Will add stool O&P, ESR/CRP, Rotavirus -Resume Rocephin 2gm daily and Flagyl 500mg q8h -GI follow up for perirectal adenopathy. #Hypertension: chronic, controlled -Continue Metoprolol 50mg daily #CHF -Not in acute exacerbation -will continue to monitor -Last echo (2014): mild TR, mild mitral annular calcification, RV systolic pressure elevated at 50-60mmHg #FEN -IV NS @83cc/hr -Hypokalemia, repleted -routine bmp monitoring -Sodium controlled diet #Prophylaxis -Heparin 5000units sq daily #Disposition -Full code -Admit to med-surg Visit type - Emergency Visit Emergency Visit: Yes ED Registration Date: 04/25/18 Care time: The patient presented to the Emergency Department on the above date and was hospitalized for further evaluation of their emergent condition. - New Patient This patient is new to me today: No - Critical Care Critical Care patient: No
--- NOTE | 2018-04-29 16:20 | PN ---
Progress Note (short form) - Note Progress Note: no fever feels better still multiple loose stools afebrile today Vital Signs Period Temp Pulse Resp BP Sys/Yañez Pulse Ox Last 24 Hr 98.0 F-99.6 F 70-84 18-20 118-141/59-84 95-96 cor-rrr lungs clear abd soft,nt ext no edema CBC, BMP 04/29/18 06:30 04/29/18 06:30 esr 1 Microbiology 04/27/18 09:45 Rectal Swab VRE Culture - Final Vr Ec Faecium 04/25/18 12:12 Blood - Peripheral Venous Blood Culture - Preliminary NO GROWTH OBTAINED AFTER 96 HOURS, INCUBATION TO CONTINUE FOR 1 DAYS. 04/25/18 12:12 Blood - Peripheral Venous Blood Culture - Preliminary NO GROWTH OBTAINED AFTER 96 HOURS, INCUBATION TO CONTINUE FOR 1 DAYS. 04/26/18 10:00 Stool Clostridium difficile Antigen (BLANCA) - Final 04/26/18 10:00 Stool Clostridium difficile Toxin Assay - Final 04/26/18 10:00 Stool Salmonella/Shigella Culture - Final NO GROWTH OF SALMONELLA OR SHIGELLA SPECIES OBTAINED 04/26/18 10:00 Stool Campylobacter Culture - Final NO GROWTH OF CAMPYLOBACTER SPECIES OBTAINED 04/26/18 10:00 Stool Yersinia Culture - Final NO GROWTH OF YERSINIA SPECIES OBTAINED 04/26/18 10:00 Stool Vibrio Culture - Final NO GROWTH OF VIBRIO SPECIES OBTAINED 04/26/18 10:00 Stool Escherichia coli 0157 Culture - Final NO GROWTH OF E COLI 0157 OBTAINED a/p low grade fever/leukocytosis diarrhea/colitis doubt cdiff with negative stool studies-has been on po vancomycin for one month as outpt ?role for questran- would get stools for ova and parasites cultures resume rocephin/flagyl for infectious colitis GI f/u ?flex sig-patient refused norovirus pcr perirectal adenopathy as well noted on ct scan history of IBS- on viberzi since 2017-now resumed f/u labs in am Problem List - Problems (1) Diarrhea Code(s): R19.7 - DIARRHEA, UNSPECIFIED Qualifiers: Diarrhea type: unspecified type Qualified Code(s): R19.7 - Diarrhea, unspecified (2) AMRIANN (acute kidney injury) Code(s): N17.9 - ACUTE KIDNEY FAILURE, UNSPECIFIED
--- NOTE | 2018-04-29 19:57 | PN ---
GI Progress Note Subjective: still with diarrhea, KUB dilated loop of bowel,no obstruction - Objective Vital Signs: Vital Signs Temperature 98.0 F 04/29/18 14:53 Pulse Rate 70 04/29/18 14:53 Respiratory Rate 18 04/29/18 14:53 Blood Pressure 119/84 04/29/18 14:53 O2 Sat by Pulse Oximetry (%) 95 04/29/18 10:00 Constitutional: Well Nourished Eyes: Yes: Conjunctiva Clear HENT: Yes: Atraumatic Neck: Yes: Trachea Midline Cardiovascular: Yes: Regular Rate and Rhythm Respiratory: Yes: CTA Bilaterally ...Palpate: Yes: Soft. No: Firm/Rigid, Guarding, Hepatomegaly, Mass, Pulsatile Mass, Splenomegaly, Tenderness ...Percussion: Yes: Tympanitic Labs: CBC, BMP 04/29/18 06:30 04/29/18 06:30 Problem List - Problems (1) Infectious diarrhea Assessment/Plan: R> patient agreed to have sigmoidoscopy tomorrow Code(s): A09 - INFECTIOUS GASTROENTERITIS AND COLITIS, UNSPECIFIED
[2018-04-30] MEDS: SODIUM CHLORIDE 1,000 ML IV SCH ×2 (01:24→13:11)
[2018-04-30] MEDS: HEPARIN NA (PORCINE) 5,000 UNITS/ML 1ML VIAL SQ SCH ×3 (05:50→22:55)
[2018-04-30 07:31] LABS: BASO % 0.3 % (0-2.0); EOS % 2.2 % (0-4.5); HEMATOCRIT 27.4 % (32.4-45.2); LYMPH % 16.1 % (8-40); MCHC 32.9 g/dl (32.0-36.0); MEAN CELL VOLUME 59.6 fl (80-96); MEAN PLT VOLUME 9.7 fl (7.5-11.1); MONO % 7.5 % (3.8-10.2); NEUT % 73.9 % (42.8-82.8); PLATELET COUNT 222 K/MM3 (134-434); RDW 15.6 % (11.6-15.6); WHITE BLOOD COUNT 11.6 K/mm3 (4.0-10.0)
[2018-04-30 07:44] LABS: MCH 19.6 pg (25.7-33.7)
[2018-04-30 08:06] LABS: ANION GAP 7 MMOL/L (8-16); BLOOD UREA NITROGEN 9 mg/dL (7-18); CALCIUM 7.9 mg/dL (8.5-10.1); CHLORIDE 113 mmol/L (98-107); CO2 22 mmol/L (21-32); GLUCOSE,RANDOM 92 mg/dL (74-106); MAGNESIUM 2.1 mg/dL (1.8-2.4); PHOSPHOROUS 2.7 mg/dL (2.5-4.9); POTASSIUM 3.2 mmol/L (3.5-5.1); SODIUM 142 mmol/L (136-145)
[2018-04-30] MEDS: CHOLESTYRAMINE/ASPARTAME 4 GM PACKET PO SCH (09:11)
[2018-04-30] MEDS: PANTOPRAZOLE 40 MG TABLET (FP) PO SCH (09:11)
[2018-04-30 09:43] LABS: ANISOCYTOSIS 2+; MACROCYTOSIS 0; PLATELET ESTIMATE NORMAL
[2018-04-30] MEDS ORDERED: METOPROLOL TARTRATE 25 MG TABLET (FP) PO SCH (10:00)
[2018-04-30] MEDS ORDERED: DEXTROSE 5%-WATER 100 ML IVPB ONE (10:10)
[2018-04-30] MEDS ORDERED: SODIUM PHOSPHATE/NA BIPHOS 133 ML ENEMA PR ONE (12:00)
[2018-04-30] MEDS: MUPIROCIN 2% TOPICAL OINTMENT 22 GM TUBE TP SCH (13:12)
[2018-04-30] MEDS: CEFTRIAXONE 2 GM in DEXTROSE 5%-WATER 100 ML IVPB SCH (13:15)
--- NOTE | 2018-04-30 14:28 | PN ---
Teaching Attending Note Name of Resident: Anusha Sainz ATTENDING PHYSICIAN STATEMENT I saw and evaluated the patient. I reviewed the resident's note and discussed the case with the resident. I agree with the resident's findings and plan as documented. SUBJECTIVE: Had 4 BMs over night and this am. No fever or chills . abd discomfort in mid abd omen OBJECTIVE: NAD CV: RRR, 3/6 SM at base . Lungs: CTAB Abd: soft, old surgical scars.minimal tenderness in epigastric area. distended and tympanic abd ( slightly worse compared to yesterday). Ext : L leg circumference > R ASSESSMENT AND PLAN: 72 y/o lady with h/o C idff colitis x 2, , HTN, diverticulitis, s/p partial colectomy, rectovaginal fistula s/p resection , CHF who presented with diarrhea . 1- Diarrhea: Still unclear etiology. Cont to have Abd distention. - Stop abx. D/W Dr. Carreon - for Flex sig today - cont hydration - will cont to evaluate Abd after the procedure, and if abd distention worsens then might need to repeat CT - ova and parasite test was cancelled, Spoke to RN. will repeat - follow noroVirus AG - replete K 2- H/o heart failure: hold lasix in setting of diarrhea. resume toprol 3- DVT px
[2018-04-30] MEDS ORDERED: POTASSIUM CHLORIDE TABS 20 MEQ TABLET.ER (FP) PO ONE (14:31)
--- NOTE | 2018-04-30 15:07 | PN ---
Physical Exam: SUBJECTIVE: Patient seen and examined at bedside this morning. Patient reports 2 episodes of loose watery stools overnight, with LLQ/umbilical soreness. Otherwise, denies fever, chills, headache, dizziness, nausea, vomiting, chest pain, SOB, urinary symptoms. OBJECTIVE: Vital Signs Period Temp Pulse Resp BP Sys/Yañez Pulse Ox Last 24 Hr 98.1 F-99.8 F 73-77 18-20 138-152/59-68 95 GENERAL: Awake, alert, and fully oriented, in no acute distress. HEAD: Normal with no signs of trauma. NECK: Normal range of motion, supple without lymphadenopathy, JVD, or masses. LUNGS: Breath sounds equal, clear to auscultation bilaterally. HEART: Regular rate and rhythm, normal S1 and S2 without murmur, rub or gallop. ABDOMEN: Soft, +LLQ/RLQ tenderness, mildly distended, normoactive bowel sounds, no guarding, no rebound. MUSCULOSKELETAL: Normal range of motion at all joints. No bony deformities or tenderness. No CVA tenderness. UPPER EXTREMITIES: 2+ pulses, warm, well-perfused. No peripheral edema. LOWER EXTREMITIES: 2+ pulses, warm, well-perfused. B/l peripheral edema NEUROLOGICAL: Cranial nerves II-XII intact. Motor 5/5, sensation intact on all extremities. Normal speech. Gait not observed. PSYCHIATRIC: Cooperative. Good eye contact. Appropriate mood and affect. SKIN: Warm, dry, normal turgor, no rashes or lesions noted Laboratory Results - last 24 hr 04/28/18 04/30/18 04/30/18 16:44 06:20 06:20 WBC 11.6 H RBC 4.60 Hgb 9.0 L Hct 27.4 L MCV 59.6 L MCH 19.6 L MCHC 32.9 RDW 15.6 Plt Count 222 MPV 9.7 Absolute Neuts (auto) 8.6 H Neutrophils % 73.9 Neutrophils % (Manual) 76.2 Band Neutrophils % 2.0 Lymphocytes % 16.1 D Lymphocytes % (Manual) 12.9 Monocytes % 7.5 Monocytes % (Manual) 6 Eosinophils % 2.2 D Eosinophils % (Manual) 1.0 Basophils % 0.3 Basophils % (Manual) 1.0 Myelocytes % (Man) 1 Promyelocytes % (Man) 0 Blast Cells % (Manual) 0 Nucleated RBC % 0 Metamyelocytes 0 Hypochromia 0 Platelet Estimate Normal Polychromasia 1+ Poikilocytosis 2+ Anisocytosis 2+ Microcytosis 2+ Macrocytosis 0 Schistocytes 1+ Sodium 142 Potassium 3.2 L Chloride 113 H Carbon Dioxide 22 Anion Gap 7 L BUN 9 Creatinine 1.0 Creat Clearance w eGFR 54.35 Random Glucose 92 Calcium 7.9 L Phosphorus 2.7 Magnesium 2.1 Stool O & P Wet [place] Cancelled O & P Permanent Slide Cancelled Fungal Cult Result 2 Cancelled Active Medications Generic Name Dose Route Start Last Admin Trade Name Freq PRN Reason Stop Dose Admin Acetaminophen 650 mg 04/25/18 20:39 04/25/18 20:51 Tylenol - PO 650 mg Q6H PRN Administration FEVER Cholestyramine Resin 4 gm 04/26/18 10:00 04/30/18 09:11 Questran Light Packet - PO Not Given DAILY [facility] Heparin Sodium (Porcine) 5,000 unit 04/25/18 22:00 04/30/18 13:16 Heparin - SQ Not Given TID [facility] Sodium Chloride 1,000 mls @ 83 mls/hr 04/29/18 08:00 04/30/18 13:11 Normal Saline - IV Not Given ASDIR [facility] Melatonin 5 mg 04/27/18 23:42 04/28/18 00:18 Melatonin PO 5 mg HS PRN Administration INSOMNIA Metoprolol Succinate 50 mg 04/30/18 10:00 04/30/18 09:11 Toprol Xl - PO Not Given DAILY [facility] Mupirocin 1 applic 04/27/18 14:00 04/30/18 13:12 Bactroban 2% Ointment - TP Not Given DAILY [facility] Pantoprazole Sodium 40 mg 04/29/18 07:34 04/30/18 09:11 Protonix - PO Not Given DAILY [facility] Zolpidem Tartrate 5 mg 04/28/18 18:16 04/29/18 20:33 Ambien - PO 5 mg HS PRN Administration INSOMNIA ASSESSMENT/PLAN: Patient is a 72 year old female with past medical history of HTN, Diverticulosis /Diverticulitis s/p partial colectomy, Rectovaginal fistula s/p resection, s/p ileostomy s/p reversal, hx of C. diff infection (2014), IBS and CHF #Diarrhea likely 2/2 infectious colitis, Hx of C. diff -CT abdomen/pelvis: Limited study with findings consistent with diffuse colitis. There is also perirectal lymphadenopathy of uncertain etiology. -AXR: 2 views reveal some air in the stomach with air distended loops of bowel in the mid and lower abdomen which may be slightly thickened. There are pelvic alyse and sutures. There are degenerative changes. The thickening of bowel may be due to a colitis as one of the loops appears to be transverse colon. Follow-up imaging suggested. -Leukocytosis, improving -Rectal swab: VR Ec Faecium (sensitive to only Linezolid) -Stool culture negative -C.diff Ag and toxin negative -Blood cultures negative -GI (Dr. Navarro) consulted. Recommendations appreciated. -For flexible sigmoidoscopy today. -Questran 4gm daily -ID (Dr. Carreon) consulted. Recommendations appreciated. -Await stool studies. Will add stool O&P, ESR/CRP, Rotavirus -Resume Rocephin 2gm daily and Flagyl 500mg q8h -GI follow up for perirectal adenopathy. #Hypertension: chronic, controlled -Continue Metoprolol 50mg daily #CHF -Not in acute exacerbation -will continue to monitor -Last echo (2014): mild TR, mild mitral annular calcification, RV systolic pressure elevated at 50-60mmHg #FEN -IV NS @83cc/hr -Hypokalemia, repleted -routine bmp monitoring -Sodium controlled diet #Prophylaxis -Heparin 5000units sq daily #Disposition -Full code -Admit to med-surg Visit type - Emergency Visit Emergency Visit: Yes ED Registration Date: 04/25/18 Care time: The patient presented to the Emergency Department on the above date and was hospitalized for further evaluation of their emergent condition. - New Patient This patient is new to me today: No - Critical Care Critical Care patient: No
--- NOTE | 2018-04-30 15:12 | PN ---
Progress Note (short form) - Note Progress Note: less abdominal pain 2 episodes loose bm overnight 4 today Vital Signs Period Temp Pulse Resp BP Sys/Yañez Pulse Ox Last 24 Hr 98.1 F-99.8 F 73-77 18-20 138-152/59-68 95 cor-rrr lungs clear abd soft,nt ext no edema CBC, BMP 04/30/18 06:20 04/30/18 06:20 Microbiology 04/25/18 12:12 Blood - Peripheral Venous Blood Culture - Final NO GROWTH AFTER 5 DAYS INCUBATION 04/25/18 12:12 Blood - Peripheral Venous Blood Culture - Final NO GROWTH AFTER 5 DAYS INCUBATION 04/29/18 16:30 Stool Norovirus GI - Preliminary 04/29/18 16:30 Stool Norovirus GII - Preliminary 04/28/18 16:30 Blood - Peripheral Venous Blood Culture - Preliminary NO GROWTH OBTAINED AFTER 24 HOURS, INCUBATION TO CONTINUE FOR 4 DAYS. 04/28/18 16:30 Blood - Peripheral Venous Blood Culture - Preliminary NO GROWTH OBTAINED AFTER 24 HOURS, INCUBATION TO CONTINUE FOR 4 DAYS. 04/27/18 09:45 Rectal Swab VRE Culture - Final Vr Ec Faecium 04/26/18 10:00 Stool Clostridium difficile Antigen (BLANCA) - Final 04/26/18 10:00 Stool Clostridium difficile Toxin Assay - Final 04/26/18 10:00 Stool Salmonella/Shigella Culture - Final NO GROWTH OF SALMONELLA OR SHIGELLA SPECIES OBTAINED 04/26/18 10:00 Stool Campylobacter Culture - Final NO GROWTH OF CAMPYLOBACTER SPECIES OBTAINED 04/26/18 10:00 Stool Yersinia Culture - Final NO GROWTH OF YERSINIA SPECIES OBTAINED 04/26/18 10:00 Stool Vibrio Culture - Final NO GROWTH OF VIBRIO SPECIES OBTAINED 04/26/18 10:00 Stool Escherichia coli 0157 Culture - Final NO GROWTH OF E COLI 0157 OBTAINED a/p low grade fever/leukocytosis diarrhea/colitis doubt cdiff with negative stool studies-has been on po vancomycin for one month as outpt would get stools for ova and parasites cultures so far negative continue rocephin/flagyl for infectious colitis pending GI f/u- for flex sig today norovirus pcr perirectal adenopathy as well noted on ct scan history of IBS- on viberzi since 2017- f/u labs in am d/w hospitalist Problem List - Problems (1) Diarrhea Code(s): R19.7 - DIARRHEA, UNSPECIFIED Qualifiers: Diarrhea type: unspecified type Qualified Code(s): R19.7 - Diarrhea, unspecified (2) MARIANN (acute kidney injury) Code(s): N17.9 - ACUTE KIDNEY FAILURE, UNSPECIFIED
[2018-04-30] MEDS ORDERED: CEFTRIAXONE 2 GM in DEXTROSE 5%-WATER 100 ML IVPB SCH (15:15)
[2018-04-30] MEDS ORDERED: VANCOMYCIN 250 MG/5 ML ORAL SOLUTION PO SCH (18:00)
[2018-04-30] MEDS ORDERED: ZOLPIDEM TARTRATE 5 MG TABLET PO PRN (18:17)
[2018-04-30] MEDS ORDERED: ACETAMINOPHEN 325 MG TABLET (FP) PO PRN (18:17)
[2018-04-30] MEDS ORDERED: SODIUM CHLORIDE 1,000 ML IV SCH (18:17)
[2018-04-30] MEDS: MELATONIN 5 MG TABLETS PO PRN (22:43)
[2018-05-01] MEDS: VANCOMYCIN 250 MG/5 ML ORAL SOLUTION PO SCH ×5 (00:04→23:44)
[2018-05-01] MEDS: SODIUM CHLORIDE 1,000 ML IV SCH ×2 (02:12→21:48)
--- NOTE | 2018-05-01 04:20 | PN ---
Physical Exam: SUBJECTIVE: Patient seen and examined at bed side , 4-5 times diarrhea with bloody spot , S/P sigmoidoscopy shows pseudomebranous colitis , resume vanco/ flagyl, feeling weak but abdominal pain is better.advance to full liquid diet. OBJECTIVE: Vital Signs Period Temp Pulse Resp BP Sys/Yañez Pulse Ox Last 24 Hr 97.8 F-99.5 F 57-94 18-20 139-154/56-85 97-100 GENERAL: AAOx3 in AND HEAD: NC.AT NECK: Normal range of motion, supple. LUNGS: Breath sounds equal, clear to auscultation bilaterally. HEART: Regular rate and rhythm, normal S1 and S2 3/6 SM at the base murmur, ABDOMEN: Soft, mid epigastric and LLL tenderness, mildly distended, hyper active active bowel sounds, no guarding, no rebound. MUSCULOSKELETAL: Normal range of motion at all joints. No bony deformities or tenderness. No CVA tenderness. UPPER EXTREMITIES: 2+ pulses, warm, well-perfused. No peripheral edema. LOWER EXTREMITIES: 2+ pulses, warm, well-perfused. B/l peripheral edema NEUROLOGICAL: Cranial nerves II-XII intact. Motor 5/5, sensation intact on all extremities. Normal speech. Gait not observed. PSYCHIATRIC: Cooperative. Good eye contact. Laboratory Results - last 24 hr 04/28/18 04/30/18 04/30/18 16:44 06:20 06:20 WBC 11.6 H RBC 4.60 Hgb 9.0 L Hct 27.4 L MCV 59.6 L MCH 19.6 L MCHC 32.9 RDW 15.6 Plt Count 222 MPV 9.7 Absolute Neuts (auto) 8.6 H Neutrophils % 73.9 Neutrophils % (Manual) 76.2 Band Neutrophils % 2.0 Lymphocytes % 16.1 D Lymphocytes % (Manual) 12.9 Monocytes % 7.5 Monocytes % (Manual) 6 Eosinophils % 2.2 D Eosinophils % (Manual) 1.0 Basophils % 0.3 Basophils % (Manual) 1.0 Myelocytes % (Man) 1 Promyelocytes % (Man) 0 Blast Cells % (Manual) 0 Nucleated RBC % 0 Metamyelocytes 0 Hypochromia 0 Platelet Estimate Normal Polychromasia 1+ Poikilocytosis 2+ Anisocytosis 2+ Microcytosis 2+ Macrocytosis 0 Schistocytes 1+ Sodium 142 Potassium 3.2 L Chloride 113 H Carbon Dioxide 22 Anion Gap 7 L BUN 9 Creatinine 1.0 Creat Clearance w eGFR 54.35 Random Glucose 92 Calcium 7.9 L Phosphorus 2.7 Magnesium 2.1 Stool O & P Wet [place] Cancelled O & P Permanent Slide Cancelled Fungal Cult Result 2 Cancelled Active Medications Generic Name Dose Route Start Last Admin Trade Name Freq PRN Reason Stop Dose Admin Acetaminophen 650 mg 04/30/18 18:17 Tylenol - PO Q6H PRN FEVER Cholestyramine Resin 4 gm 05/01/18 10:00 Questran Light Packet - PO DAILY JORGE Heparin Sodium (Porcine) 5,000 unit 04/30/18 22:00 04/30/18 22:55 Heparin - SQ Not Given TID JORGE Metronidazole 500 mg in 100 mls @ 100 mls/hr 05/01/18 02:00 05/01/18 02:04 Flagyl 500mg Premixed Ivpb - IVPB 100 mls/hr Q8H-IV JORGE Administration Sodium Chloride 1,000 mls @ 125 mls/hr 04/30/18 18:30 05/01/18 02:12 Normal Saline - IV 125 mls/hr ASDIR JORGE Administration Melatonin 5 mg 04/30/18 18:17 04/30/18 22:43 Melatonin PO 5 mg HS PRN Administration INSOMNIA Metoprolol Succinate 50 mg 05/01/18 10:00 Toprol Xl - PO DAILY JORGE Mupirocin 1 applic 05/01/18 10:00 Bactroban 2% Ointment - TP DAILY JORGE Pantoprazole Sodium 40 mg 05/01/18 10:00 Protonix - PO DAILY JORGE Vancomycin HCl 250 mg 05/01/18 00:00 05/01/18 00:04 Vancomycin Oral Solution PO 250 mg Q6HPO JORGE Administration Zolpidem Tartrate 5 mg 04/30/18 18:17 Ambien - PO HS PRN INSOMNIA CBC, BMP 05/01/18 08:00 05/01/18 08:00 ASSESSMENT/PLAN: Patient is a 72 year old female with past medical history of HTN, Diverticulosis /Diverticulitis s/p partial colectomy, Rectovaginal fistula s/p resection, s/p ileostomy s/p reversal, hx of C. diff infection (2014), IBS and CHF #Diarrhea likely 2/2 infectious colitis, Hx of C. diff * S/P sigmoidoscopy by Dr Navarro goes with pseudomembranous colitis * CT abdomen/pelvis: Limited study with findings consistent with diffuse colitis. There is also perirectal lymphadenopathy of uncertain etiology. * Leukocytosis, improving * cont Vanco /flagyl * follow stool ova and paracytes , * C.diff negative for AG and toxin * Blood cultures negative * Questran 4gm daily * ID (Dr. Carreon) consulted. Recommendations appreciated. #Hypertension: chronic, controlled * Continue Metoprolol 50mg daily #CHF * Not in acute exacerbation * daily weight , I& O * Last echo (2014): mild TR, mild mitral annular calcification, RV systolic pressure elevated at 50-60mmHg #FEN * IV NS @83cc/hr * Hypokalemia, repleted, monitor bmp daily * Sodium controlled diet #Prophylaxis * Heparin 5000units sq daily #Disposition * Full code * Admit to med-surg Visit type - Emergency Visit Emergency Visit: Yes ED Registration Date: 04/25/18 Care time: The patient presented to the Emergency Department on the above date and was hospitalized for further evaluation of their emergent condition. - New Patient This patient is new to me today: Yes Date on this admission: 05/01/18 - Critical Care Critical Care patient: No Total Critical Care Time (in minutes): 45 Critical Care Statement: The care of this patient involved high complexity decision making to prevent further life threatening deterioration of the patient 's condition and/or to evaluate & treat vital organ system(s) failure or risk of failure.
[2018-05-01] MEDS: HEPARIN NA (PORCINE) 5,000 UNITS/ML 1ML VIAL SQ SCH ×3 (05:55→21:48)
[2018-05-01] MEDS ORDERED: SODIUM CHLORIDE NASAL SPRAY 44 ML BOTTLE NS PRN (06:51)
[2018-05-01] MEDS ORDERED: PT OWN MED DRAWER 7, Y5N ONE ×3 (08:57→21:11)
[2018-05-01] MEDS: CHOLESTYRAMINE/ASPARTAME 4 GM PACKET PO SCH (09:08)
[2018-05-01] MEDS: MUPIROCIN 2% TOPICAL OINTMENT 22 GM TUBE TP SCH (09:08)
[2018-05-01 09:30] LABS: HEMATOCRIT 27.8 % (32.4-45.2); HEMOGLOBIN 9.2 GM/dL (10.7-15.3); MEAN CELL VOLUME 59.5 fl (80-96); MEAN PLT VOLUME 8.8 fl (7.5-11.1); PLATELET COUNT 223 K/MM3 (134-434); RBC 4.67 M/mm3 (3.60-5.2); RDW 16.1 % (11.6-15.6); WHITE BLOOD COUNT 12.2 K/mm3 (4.0-10.0)
[2018-05-01 09:32] LABS: MCH 19.7 pg (25.7-33.7)
[2018-05-01] MEDS ORDERED: PANTOPRAZOLE 40 MG TABLET (FP) PO SCH (10:00)
[2018-05-01 10:01] LABS: ANION GAP 11 MMOL/L (8-16); BLOOD UREA NITROGEN 9 mg/dL (7-18); CALCIUM 8.2 mg/dL (8.5-10.1); CHLORIDE 111 mmol/L (98-107); CO2 20 mmol/L (21-32); CREATININE 1.1 mg/dL (0.55-1.3); GLUCOSE,RANDOM 72 mg/dL (74-106); MAGNESIUM 1.9 mg/dL (1.8-2.4); PHOSPHOROUS 3.4 mg/dL (2.5-4.9); POTASSIUM 3.3 mmol/L (3.5-5.1); SODIUM 141 mmol/L (136-145)
--- NOTE | 2018-05-01 12:17 | PN ---
Teaching Attending Note Name of Resident: Carmelo Louis ATTENDING PHYSICIAN STATEMENT I saw and evaluated the patient. I reviewed the resident's note and discussed the case with the resident. I agree with the resident's findings and plan as documented. SUBJECTIVE: No fever or chills. No abd pain , had 5 BMS overnight and this am . small amount of blood in stool this am . OBJECTIVE: NAD CV: RRR, 3/6 SM at base . Lungs: CTAB Abd: soft, old surgical scars. minimal tenderness in epigastric area. distended and tympanic abd ( slightly better). slightly hyperactive BS Ext : L leg circumference > R ASSESSMENT AND PLAN: 72 y/o lady with h/o C idff colitis x 2, , HTN, diverticulitis, s/p partial colectomy, rectovaginal fistula s/p resection , CHF who presented with diarrhea . 1- Diarrhea: Flex sig with psudomembrabouse colitis, likley due to C diff. - placed o n vanco and flagyl again - cont IVF - monitor electrolytes and replete - follow rest of stool tests - full liquid diet 2- H/o heart failure: hold lasix in setting of diarrhea. Cont toprol 3- DVT px
[2018-05-01] MEDS: KCL 10 MEQ IVPB 10 MEQ/100 ML INFUS.BAG IVPB SCH ×2 (14:34→15:58)
--- NOTE | 2018-05-01 15:01 | PN ---
GI Progress Note Subjective: For Dr. Navarro who resumes care 05/03/17: Complains of cramping, diarrhea and some blood noted in stool Pseudomembranes noted on flex sig - Objective Vital Signs: Vital Signs Temperature 98.9 F 05/01/18 10:00 Pulse Rate 69 05/01/18 10:00 Respiratory Rate 20 05/01/18 10:00 Blood Pressure 141/58 L 05/01/18 10:00 O2 Sat by Pulse Oximetry (%) 100 05/01/18 09:00 Constitutional: Calm Eyes: No: Sclera Icterus Cardiovascular: Yes: Regular Rate and Rhythm Respiratory: Yes: CTA Bilaterally Gastrointestinal Inspection: Yes: Other (Protuberant abdomen). No: Distention ...Auscultate: Yes: Hyperactive Bowel Sounds ...Palpate: Yes: Soft, Tenderness (Mild TTP LLQ). No: Hepatomegaly ...Percussion: Yes: Tympanitic (mild central tympany) Edema: No (No LE edema) Neurological: Yes: Alert Labs: CBC, BMP 05/01/18 08:00 05/01/18 08:00 Problem List - Problems (1) Infectious diarrhea Assessment/Plan: Pseudomembranes noted on flex sig Currently on PO vanco as well as IV flagyl Tolerating full liquids D/C'd protonix Supportive measures Code(s): A09 - INFECTIOUS GASTROENTERITIS AND COLITIS, UNSPECIFIED
[2018-05-01] MEDS: MELATONIN 5 MG TABLETS PO PRN (21:49)
[2018-05-02] MEDS: HEPARIN NA (PORCINE) 5,000 UNITS/ML 1ML VIAL SQ SCH ×2 (05:10→13:35)
[2018-05-02] MEDS: VANCOMYCIN 250 MG/5 ML ORAL SOLUTION PO SCH ×4 (05:38→23:23)
[2018-05-02] MEDS: CHOLESTYRAMINE/ASPARTAME 4 GM PACKET PO SCH (09:35)
[2018-05-02] MEDS: MUPIROCIN 2% TOPICAL OINTMENT 22 GM TUBE TP SCH (09:36)
--- NOTE | 2018-05-02 12:58 | PN ---
Progress Note, Physician History of Present Illness: REPORTS FLATUS AND ONE LOOSE BM OVERNIGHT NO C/O ABDOMINAL PAIN NO FEVER/ CHILLS AFEBRILE WBC 12K STOOL STUDIES NEGATIVE - Current Medication List Current Medications: Active Medications Acetaminophen (Tylenol -) 650 mg PO Q6H PRN PRN Reason: FEVER Cholestyramine Resin (Questran Light Packet -) 4 gm PO DAILY [facility] Last Admin: 05/02/18 09:35 Dose: 4 gm Heparin Sodium (Porcine) (Heparin -) 5,000 unit SQ TID [facility] Last Admin: 05/02/18 05:10 Dose: Not Given Metronidazole (Flagyl 500mg Premixed Ivpb -) 500 mg in 100 mls @ 100 mls/hr IVPB Q8H-IV [facility] Last Admin: 05/02/18 09:35 Dose: 100 mls/hr Sodium Chloride (Normal Saline -) 1,000 mls @ 125 mls/hr IV ASDIR [facility] Last Admin: 05/01/18 21:48 Dose: 125 mls/hr Melatonin (Melatonin) 5 mg PO HS PRN PRN Reason: INSOMNIA Last Admin: 05/01/18 21:49 Dose: 5 mg Metoprolol Succinate (Toprol Xl -) 50 mg PO DAILY [facility] Last Admin: 05/02/18 09:35 Dose: 50 mg Mupirocin (Bactroban 2% Ointment -) 1 applic TP DAILY [facility] Last Admin: 05/02/18 09:36 Dose: 1 applic Sodium Chloride ([place] Nasal [place] -) 2 spray NS BID PRN PRN Reason: NASAL CONGESTION Last Admin: 05/01/18 09:07 Dose: 2 spray Vancomycin HCl (Vancomycin Oral Solution) 250 mg PO Q6HPO [facility] Last Admin: 05/02/18 05:38 Dose: 250 mg Zolpidem Tartrate (Ambien -) 5 mg PO HS PRN PRN Reason: INSOMNIA - Objective Vital Signs: Vital Signs Temperature 98.3 F 05/02/18 10:00 Pulse Rate 81 05/02/18 10:00 Respiratory Rate 18 05/02/18 10:00 Blood Pressure 112/63 05/02/18 10:00 O2 Sat by Pulse Oximetry (%) 100 05/02/18 09:00 Constitutional: Yes: No Distress Cardiovascular: Yes: Regular Rate and Rhythm, S1, S2 Respiratory: Yes: CTA Bilaterally Gastrointestinal: Yes: Normal Bowel Sounds, Soft, Other (DISTENDED, TYMPANITIC) . No: Tenderness Labs: CBC, BMP 05/01/18 08:00 05/01/18 08:00 Assessment/Plan ? C DIFF COLITIS\ CONTINUE PO VANCO/ IV FLAGYL
--- NOTE | 2018-05-02 14:16 | PN ---
Progress Note (short form) - Note Progress Note: Subjective: diarrhea has resolved, one soft BM last night. No abd pain Objective: Vital Signs: Last Vital Signs Temp Pulse Resp BP Pulse Ox 98.3 F 81 18 112/63 100 05/02/18 10:00 05/02/18 10:00 05/02/18 10:00 05/02/18 10:00 05/02/18 09:00 Physical Exam: NAD. CV: RRR, 3/6 SM at base . Lungs: CTAB Abd: soft, old surgical scars. minimal tenderness in epigastric area. distended and tympanic abd ( slightly better). slightly hyperactive BS Ext : L leg circumference > R ASSESSMENT AND PLAN: 72 y/o lady with h/o C diff colitis x 2, HTN, diverticulitis, s/p partial colectomy, recto-vaginal fistula s/p resection , CHF who presented with diarrhea . 1- Diarrhea: Flex sig with psudomembrabouse colitis, likely due to C diff. - cont po vanco and flagyl. - dc IVF - repeat K - follow rest of stool tests - full liquid diet - Abd distention is better, but still very distended.Monitor 2- H/o heart failure: cont to hold lasix . Cont toprol 3- DVT px Visit type - Emergency Visit Emergency Visit: Yes ED Registration Date: 04/25/18 Care time: The patient presented to the Emergency Department on the above date and was hospitalized for further evaluation of their emergent condition. - New Patient This patient is new to me today: No - Critical Care Critical Care patient: No
[2018-05-02] MEDS ORDERED: POTASSIUM CHLORIDE TABS 20 MEQ TABLET.ER (FP) PO ONE (15:38)
[2018-05-02] MEDS ORDERED: KCL 10 MEQ IVPB 10 MEQ/100 ML INFUS.BAG IVPB SCH (18:00)
[2018-05-02] MEDS: MELATONIN 5 MG TABLETS PO PRN (23:23)
[2018-05-03] MEDS: HEPARIN NA (PORCINE) 5,000 UNITS/ML 1ML VIAL SQ SCH ×4 (00:18→21:23)
[2018-05-03] MEDS: VANCOMYCIN 250 MG/5 ML ORAL SOLUTION PO SCH ×4 (06:40→23:30)
--- NOTE | 2018-05-03 08:41 | PN ---
Progress Note, Physician History of Present Illness: Patient examined and case discussed with Dr. Navarro GI FOLLOW UP NOTE Patient examined lying in bed. Patient continues to have diarrhea. She states she had more than 5 episodes of diarrhea with minor cramping noted with bright blood with clots yesterday. Flex-sig performed and show pseudom membranes. - Current Medication List Current Medications: Active Medications Acetaminophen (Tylenol -) 650 mg PO Q6H PRN PRN Reason: FEVER Cholestyramine Resin (Questran Light Packet -) 4 gm PO DAILY [facility] BEDS AT [facility] Last Admin: 05/02/18 09:35 Dose: 4 gm Heparin Sodium (Porcine) (Heparin -) 5,000 unit SQ TID [facility]CLUDE 234 BEDS AT [facility] Last Admin: 05/03/18 05:41 Dose: Not Given Metronidazole (Flagyl 500mg Premixed Ivpb -) 500 mg in 100 mls @ 100 mls/hr IVPB Q8H-IV [facility]CLUDE 234 BEDS AT [facility] Last Admin: 05/03/18 02:08 Dose: 100 mls/hr Melatonin (Melatonin) 5 mg PO HS PRN PRN Reason: INSOMNIA Last Admin: 05/02/18 23:23 Dose: 5 mg Metoprolol Succinate (Toprol Xl -) 50 mg PO DAILY [facility] 234 BEDS AT [facility] Last Admin: 05/02/18 09:35 Dose: 50 mg Mupirocin (Bactroban 2% Ointment -) 1 applic TP DAILY [facility] 234 BEDS AT [facility] Last Admin: 05/02/18 09:36 Dose: 1 applic Sodium Chloride ([place] Nasal [place] -) 2 spray NS BID PRN PRN Reason: NASAL CONGESTION Last Admin: 05/01/18 09:07 Dose: 2 spray Vancomycin HCl (Vancomycin Oral Solution) 250 mg PO Q6HPO [facility]S INCLUDE 234 BEDS AT [facility] Last Admin: 05/03/18 06:40 Dose: 250 mg Zolpidem Tartrate (Ambien -) 5 mg PO HS PRN PRN Reason: INSOMNIA - Objective Vital Signs: Vital Signs Temperature 98 F 05/03/18 07:00 Pulse Rate 63 05/03/18 07:00 Respiratory Rate 18 05/03/18 07:00 Blood Pressure 137/62 05/03/18 07:00 O2 Sat by Pulse Oximetry (%) 95 05/02/18 21:00 Constitutional: Yes: Well Nourished, No Distress, Calm Eyes: Yes: Conjunctiva Clear Cardiovascular: Yes: Regular Rate and Rhythm Respiratory: Yes: Regular, CTA Bilaterally Gastrointestinal: Yes: Normal Bowel Sounds, Soft, Distention (mild), Tenderness (RLQ). No: WNL, Abdomen, Obese, Ascites, Hematemesis, Hemorrhoids, Hepatomegaly , Hernia, Hyperactive Bowel Sounds, Hypoactive Bowel Sounds, Melena, Palpable Mass, Pulsatile Mass, Rectal Bleeding, Splenomegaly, Tenderness, Epigastrium, Tenderness, Rebound, Vomiting, Other Neurological: Yes: Alert, Oriented Psychiatric: Yes: Alert, Oriented Labs: CBC, BMP 05/01/18 08:00 05/03/18 07:45 Laboratory Last Values WBC 12.2 K/mm3 (4.0-10.0) H 05/01/18 08:00 RBC 4.67 M/mm3 (3.60-5.2) 05/01/18 08:00 Hgb 9.2 GM/dL (10.7-15.3) L 05/01/18 08:00 Hct 27.8 % (32.4-45.2) L 05/01/18 08:00 MCV 59.5 fl (80-96) L 05/01/18 08:00 MCH 19.7 pg (25.7-33.7) L 05/01/18 08:00 MCHC 33.0 g/dl (32.0-36.0) 05/01/18 08:00 RDW 16.1 % (11.6-15.6) H 05/01/18 08:00 Plt Count 223 K/MM3 (134-434) 05/01/18 08:00 MPV 8.8 fl (7.5-11.1) 05/01/18 08:00 Absolute Neuts (auto) 8.6 K/mm3 (1.5-8.0) H 04/30/18 06:20 Neutrophils % 73.9 % (42.8-82.8) 04/30/18 06:20 Neutrophils % (Manual) 76.2 % (42.8-82.8) 04/30/18 06:20 Band Neutrophils % 2.0 % 04/30/18 06:20 Lymphocytes % 16.1 % (8-40) D 04/30/18 06:20 Lymphocytes % (Manual) 12.9 % (8-40) 04/30/18 06:20 Monocytes % 7.5 % (3.8-10.2) 04/30/18 06:20 Monocytes % (Manual) 6 % (3.8-10.2) 04/30/18 06:20 Eosinophils % 2.2 % (0-4.5) D 04/30/18 06:20 Eosinophils % (Manual) 1.0 % (0-4.5) 04/30/18 06:20 Basophils % 0.3 % (0-2.0) 04/30/18 06:20 Basophils % (Manual) 1.0 % (0-2.0) 04/30/18 06:20 Myelocytes % (Man) 1 % (0-2) 04/30/18 06:20 Promyelocytes % (Man) 0 % (0-2) 04/30/18 06:20 Blast Cells % (Manual) 0 % (0-0) 04/30/18 06:20 Nucleated RBC % 0 % (0-0) 04/30/18 06:20 Metamyelocytes 0 % (0-2) 04/30/18 06:20 Hypochromia 0 04/30/18 06:20 Platelet Estimate Normal 04/30/18 06:20 Platelet Comment No clumping noted 04/28/18 06:20 Polychromasia 1+ 04/30/18 06:20 Poikilocytosis 2+ 04/30/18 06:20 Anisocytosis 2+ 04/30/18 06:20 Microcytosis 2+ 04/30/18 06:20 Macrocytosis 0 04/30/18 06:20 Tear Drop Cells 1+ 04/29/18 06:30 [place] Cells 1+ 04/29/18 06:30 Schistocytes 1+ 04/30/18 06:20 ESR 1 mm/hr (0-30) 04/28/18 06:20 VBG pH 7.41 (7.32-7.42) 04/25/18 12:30 POC VBG pCO2 37.2 mmHg (38-52) L 04/25/18 12:30 POC VBG pO2 73.0 mmHg (28-48) H 04/25/18 12:30 Mixed VBG HCO3 23.3 meq/L (19-25) 04/25/18 12:30 Sodium 141 mmol/L (136-145) 05/01/18 08:00 Potassium 3.3 mmol/L (3.5-5.1) L 05/02/18 14:35 Chloride 111 mmol/L (98-107) H 05/01/18 08:00 Carbon Dioxide 20 mmol/L (21-32) L 05/01/18 08:00 Anion Gap 11 MMOL/L (8-16) 05/01/18 08:00 BUN 9 mg/dL (7-18) 05/01/18 08:00 Creatinine 1.1 mg/dL (0.55-1.3) 05/01/18 08:00 Creat Clearance w eGFR 48.69 (>60) 05/01/18 08:00 Random Glucose 72 mg/dL (74-106) L 05/01/18 08:00 Lactic Acid 1.7 mmol/L (0.4-2.0) 04/25/18 12:37 Calcium 8.2 mg/dL (8.5-10.1) L 05/01/18 08:00 Phosphorus 3.4 mg/dL (2.5-4.9) 05/01/18 08:00 Magnesium 1.9 mg/dL (1.8-2.4) 05/01/18 08:00 Iron 23 ug/dL (27-139) L 04/26/18 09:50 TIBC 217 ug/dL (250-450) L 04/26/18 09:50 Iron Saturation 11 % (15-55) L 04/26/18 09:50 Ferritin 153.0 ng/ml (8-388) 04/26/18 09:50 Total Bilirubin 0.6 mg/dL (0.2-1) 04/26/18 09:50 AST 21 U/L (15-37) 04/26/18 09:50 ALT 38 U/L (13-61) 04/26/18 09:50 Alkaline Phosphatase 114 U/L (45-117) 04/26/18 09:50 C-Reactive Protein 6.9 MG/DL (0.00-0.3) H 04/28/18 06:20 Total Protein 5.9 g/dl (6.4-8.2) L 04/26/18 09:50 Albumin 2.8 g/dl (3.4-5.0) L 04/26/18 09:50 Vitamin B12 738 pg/ml (193-986) 04/26/18 09:50 Serum Folate 70 ng/mL (3.1-17.5) H 04/26/18 09:50 Rotavirus Report Status Positive (Negative) H 04/29/18 22:00 Stool O & P Wet [place] Cancelled 04/28/18 16:44 O & P Permanent Slide Cancelled 04/28/18 16:44 Fungal Cult Result 2 Cancelled 04/28/18 16:44 <Emelina Hong - Last Filed: 05/03/18 08:36> - Current Medication List Current Medications: Active Medications Acetaminophen (Tylenol -) 650 mg PO Q6H PRN PRN Reason: FEVER Cholestyramine Resin (Questran Light Packet -) 4 gm PO DAILY [facility]S [facility]CLUDE 234 BEDS AT [facility] Last Admin: 05/03/18 12:06 Dose: 4 gm Heparin Sodium (Porcine) (Heparin -) 5,000 unit SQ TID COUNTS INCLUDE 234 BEDS AT [facility] Last Admin: 05/03/18 13:06 Dose: Not Given Metronidazole (Flagyl 500mg Premixed Ivpb -) 500 mg in 100 mls @ 100 mls/hr IVPB Q8H-IV JORGE Last Admin: 05/03/18 17:51 Dose: 100 mls/hr Melatonin (Melatonin) 5 mg PO HS PRN PRN Reason: INSOMNIA Last Admin: 05/02/18 23:23 Dose: 5 mg Metoprolol Succinate (Toprol Xl -) 50 mg PO DAILY [facility]CLUDE 234 BEDS AT [facility] Last Admin: 05/03/18 12:06 Dose: 50 mg Mupirocin (Bactroban 2% Ointment -) 1 applic TP DAILY [facility] INCLUDE 234 BEDS AT [facility] Last Admin: 05/03/18 12:07 Dose: 1 applic Sodium Chloride ([place] Nasal [place] -) 2 spray NS BID PRN PRN Reason: NASAL CONGESTION Last Admin: 05/01/18 09:07 Dose: 2 spray Vancomycin HCl (Vancomycin Oral Solution) 250 mg PO Q6HPO COUNTS INCLUDE 234 BEDS AT [facility] Last Admin: 05/03/18 17:52 Dose: 250 mg Zolpidem Tartrate (Ambien -) 5 mg PO HS PRN PRN Reason: INSOMNIA - Objective Vital Signs: Vital Signs Temperature 98.2 F 05/03/18 17:34 Pulse Rate 67 05/03/18 17:34 Respiratory Rate 20 05/03/18 17:34 Blood Pressure 127/56 L 05/03/18 17:34 O2 Sat by Pulse Oximetry (%) 96 05/03/18 09:00 Labs: CBC, BMP 05/03/18 07:45 05/03/18 07:45 <Chandrakant Navarro - Last Filed: 05/03/18 20:15> Problem List - Problems (1) Diarrhea Assessment/Plan: >continue with cholestyramine daily Code(s): R19.7 - DIARRHEA, UNSPECIFIED Qualifiers: Diarrhea type: unspecified type Qualified Code(s): R19.7 - Diarrhea, unspecified (2) Infectious diarrhea Assessment/Plan: > restarted on vanco 250mg PO q6h >cont with isolation precaution for c-diff >pending norovirus result Code(s): A09 - INFECTIOUS GASTROENTERITIS AND COLITIS, UNSPECIFIED <Emelina Hong - Last Filed: 05/03/18 08:36> - Problems (1) Infectious diarrhea Assessment/Plan: Fidanomicin should be started once available and possibly fecal transplant Code(s): A09 - INFECTIOUS GASTROENTERITIS AND COLITIS, UNSPECIFIED <Chandrakant Navarro - Last Filed: 05/03/18 20:15>
[2018-05-03 09:06] LABS: ANION GAP 7 MMOL/L (8-16); BLOOD UREA NITROGEN 8 mg/dL (7-18); CALCIUM 8.1 mg/dL (8.5-10.1); CHLORIDE 108 mmol/L (98-107); CO2 25 mmol/L (21-32); CREATININE 1.1 mg/dL (0.55-1.3); GLUCOSE,RANDOM 97 mg/dL (74-106); MAGNESIUM 2.2 mg/dL (1.8-2.4); PHOSPHOROUS 3.3 mg/dL (2.5-4.9); POTASSIUM 3.5 mmol/L (3.5-5.1); SODIUM 140 mmol/L (136-145)
[2018-05-03 09:31] LABS: BASO % 0.4 % (0-2.0); EOS % 1.8 % (0-4.5); HEMATOCRIT 28.2 % (32.4-45.2); HEMOGLOBIN 9.4 GM/dL (10.7-15.3); LYMPH % 15.2 % (8-40); MCHC 33.1 g/dl (32.0-36.0); MEAN CELL VOLUME 59.5 fl (80-96); MEAN PLT VOLUME 9.5 fl (7.5-11.1); MONO % 5.7 % (3.8-10.2); NEUT % 76.9 % (42.8-82.8); PLATELET COUNT 289 K/MM3 (134-434); RBC 4.75 M/mm3 (3.60-5.2); RDW 15.7 % (11.6-15.6)
[2018-05-03 09:37] LABS: MCH 19.7 pg (25.7-33.7)
[2018-05-03 11:53] LABS: ANISOCYTOSIS 2+; MACROCYTOSIS 0; PLATELET ESTIMATE NORMAL
[2018-05-03] MEDS: CHOLESTYRAMINE/ASPARTAME 4 GM PACKET PO SCH (12:06)
[2018-05-03] MEDS: MUPIROCIN 2% TOPICAL OINTMENT 22 GM TUBE TP SCH (12:07)
--- NOTE | 2018-05-03 15:20 | PN ---
Progress Note (short form) - Note Progress Note: some blood in stools over the weekend now resolved 3 bms today starting to eat no abdominal pain Vital Signs Period Temp Pulse Resp BP Sys/Yañez Pulse Ox Last 24 Hr 97.4 F-99.9 F 63-71 18-18 116-149/57-68 95 ccccccccor-rrr lungs decreased bs at bases abd soft,nt +distention ext no edema CBC, BMP 05/03/18 07:45 05/03/18 07:45 Microbiology 04/30/18 12:00 Colon Fluid Salmonella/Shigella Culture - Final NO GROWTH OF SALMONELLA OR SHIGELLA SPECIES OBTAINED 04/30/18 12:00 Colon Fluid Campylobacter Culture - Final NO GROWTH OF CAMPYLOBACTER SPECIES OBTAINED 04/30/18 12:00 Colon Fluid Yersinia Culture - Final NO GROWTH OF YERSINIA SPECIES OBTAINED 04/30/18 12:00 Colon Fluid Vibrio Culture - Final NO GROWTH OF VIBRIO SPECIES OBTAINED 04/30/18 12:00 Colon Fluid Escherichia coli 0157 Culture - Final NO GROWTH OF E COLI 0157 OBTAINED 04/28/18 16:30 Blood - Peripheral Venous Blood Culture - Preliminary NO GROWTH OBTAINED AFTER 96 HOURS, INCUBATION TO CONTINUE FOR 1 DAYS. 04/28/18 16:30 Blood - Peripheral Venous Blood Culture - Preliminary NO GROWTH OBTAINED AFTER 96 HOURS, INCUBATION TO CONTINUE FOR 1 DAYS. 04/30/18 12:00 Stool Cryptosporidium Antigen - Final 04/30/18 12:00 Stool Giardia Antigen (BLANCA) - Final 04/25/18 12:12 Blood - Peripheral Venous Blood Culture - Final NO GROWTH AFTER 5 DAYS INCUBATION 04/25/18 12:12 Blood - Peripheral Venous Blood Culture - Final NO GROWTH AFTER 5 DAYS INCUBATION 04/29/18 16:30 Stool Norovirus GI - Preliminary 04/29/18 16:30 Stool Norovirus GII - Preliminary 04/27/18 09:45 Rectal Swab VRE Culture - Final Vr Ec Faecium 04/26/18 10:00 Stool Clostridium difficile Antigen (BLANCA) - Final 04/26/18 10:00 Stool Clostridium difficile Toxin Assay - Final 04/26/18 10:00 Stool Salmonella/Shigella Culture - Final NO GROWTH OF SALMONELLA OR SHIGELLA SPECIES OBTAINED 04/26/18 10:00 Stool Campylobacter Culture - Final NO GROWTH OF CAMPYLOBACTER SPECIES OBTAINED 04/26/18 10:00 Stool Yersinia Culture - Final NO GROWTH OF YERSINIA SPECIES OBTAINED 04/26/18 10:00 Stool Vibrio Culture - Final NO GROWTH OF VIBRIO SPECIES OBTAINED 04/26/18 10:00 Stool Escherichia coli 0157 Culture - Final NO GROWTH OF E COLI 0157 OBTAINED a/p flex sig with pseudomembranes, back on po vancomycin and iv flagyl GI f/u norovirus pcr pending perirectal adenopathy as well noted on ct scan history of IBS- on viberzi since 2017- f/u labs in am Problem List - Problems (1) Diarrhea Code(s): R19.7 - DIARRHEA, UNSPECIFIED Qualifiers: Diarrhea type: unspecified type Qualified Code(s): R19.7 - Diarrhea, unspecified (2) MARIANN (acute kidney injury) Code(s): N17.9 - ACUTE KIDNEY FAILURE, UNSPECIFIED
--- NOTE | 2018-05-03 15:42 | PN ---
Physical Exam: SUBJECTIVE: Patient seen and examined continuos diarrhea every 2 hours with some blood in it abdominal pain and distension is better asking for regular food H/H is stable denies any N/V OBJECTIVE: Vital Signs Period Temp Pulse Resp BP Sys/Yañez Pulse Ox Last 24 Hr 97.4 F-99.9 F 61-71 18-18 116-149/57-68 95 GENERAL: AAOx3 in AND HEAD: NC.AT NECK: Normal range of motion, supple. LUNGS: Breath sounds equal, clear to auscultation bilaterally. HEART: Regular rate and rhythm, normal S1 and S2 3/6 SM at the base murmur, ABDOMEN: Soft, mid epigastric discomfort , ND, normal active active bowel sounds, no guarding, no rebound. MUSCULOSKELETAL: Normal range of motion at all joints. No bony deformities or tenderness. No CVA tenderness. UPPER EXTREMITIES: 2+ pulses, warm, well-perfused. No peripheral edema. LOWER EXTREMITIES: 2+ pulses, warm, well-perfused. B/l peripheral edema NEUROLOGICAL: Cranial nerves II-XII intact. Motor 5/5, sensation intact on all extremities. Normal speech. Gait not observed. left leg> right leg PSYCHIATRIC: Cooperative. Good eye contact. Laboratory Results - last 24 hr 04/29/18 05/03/18 05/03/18 22:00 07:45 07:45 WBC 11.0 H RBC 4.75 Hgb 9.4 L Hct 28.2 L MCV 59.5 L MCH 19.7 L MCHC 33.1 RDW 15.7 H Plt Count 289 D MPV 9.5 Absolute Neuts (auto) 8.5 H Neutrophils % 76.9 Neutrophils % (Manual) 75.5 Band Neutrophils % 2.1 Lymphocytes % 15.2 Lymphocytes % (Manual) 13.3 Monocytes % 5.7 Monocytes % (Manual) 1 L D Eosinophils % 1.8 Eosinophils % (Manual) 5.1 H D Basophils % 0.4 Basophils % (Manual) 0.0 Myelocytes % (Man) 1 Promyelocytes % (Man) 0 Blast Cells % (Manual) 0 Nucleated RBC % 0 Metamyelocytes 1 D Hypochromia 1+ Platelet Estimate Normal Polychromasia 1+ Poikilocytosis 2+ Anisocytosis 2+ Microcytosis 2+ Macrocytosis 0 Luke Cells 1+ Schistocytes 1+ Sodium 140 Potassium 3.5 Chloride 108 H Carbon Dioxide 25 Anion Gap 7 L BUN 8 Creatinine 1.1 Creat Clearance w eGFR 48.69 Random Glucose 97 Calcium 8.1 L Phosphorus 3.3 Magnesium 2.2 Rotavirus Report Status Positive H Active Medications Generic Name Dose Route Start Last Admin Trade Name Freq PRN Reason Stop Dose Admin Acetaminophen 650 mg 04/30/18 18:17 Tylenol - PO Q6H PRN FEVER Cholestyramine Resin 4 gm 05/01/18 10:00 05/03/18 12:06 Questran Light Packet - PO 4 gm DAILY JORGE Administration Heparin Sodium (Porcine) 5,000 unit 04/30/18 22:00 05/03/18 13:06 Heparin - SQ Not Given TID JORGE Metronidazole 500 mg in 100 mls @ 100 mls/hr 05/01/18 02:00 05/03/18 12:06 Flagyl 500mg Premixed Ivpb - IVPB 100 mls/hr Q8H-IV JORGE Administration Melatonin 5 mg 04/30/18 18:17 05/02/18 23:23 Melatonin PO 5 mg HS PRN Administration INSOMNIA Metoprolol Succinate 50 mg 05/01/18 10:00 05/03/18 12:06 Toprol Xl - PO 50 mg DAILY JORGE Administration Mupirocin 1 applic 05/01/18 10:00 05/03/18 12:07 Bactroban 2% Ointment - TP 1 applic DAILY JORGE Administration Sodium Chloride 2 spray 05/01/18 06:51 05/01/18 09:07 [place] Nasal [place] - NS 2 spray BID PRN Administration NASAL CONGESTION Vancomycin HCl 250 mg 05/01/18 00:00 05/03/18 12:09 Vancomycin Oral Solution PO 250 mg Q6HPO JORGE Administration Zolpidem Tartrate 5 mg 04/30/18 18:17 Ambien - PO HS PRN INSOMNIA CBC, BMP 05/03/18 07:45 05/03/18 07:45 ASSESSMENT/PLAN: Patient is a 72 year old female with past medical history of HTN, Diverticulosis /Diverticulitis s/p partial colectomy, Rectovaginal fistula s/p resection, s/p ileostomy s/p reversal, hx of C. diff infection (2014), IBS and CHF #Diarrhea likely 2/2 infectious colitis, Hx of C. diff * cont to have diarrhea with some blood likely from Biopsy sight * monnitor H/H in AM and reach out to [facility] for further treatment * S/P sigmoidoscopy by Dr Mccall goes with pseudomembranous colitis * CT abdomen/pelvis: Limited study with findings consistent with diffuse colitis. There is also perirectal lymphadenopathy of uncertain etiology. * cont Vanco /flagyl * stool studies negative * Questran 4gm daily * ID (Dr. Carreon) consulted. Recommendations appreciated for Fedaxomycin or fecal transplant * give a call for DR mccall waiting call back. #Hypertension: chronic, controlled * Continue Metoprolol 50mg daily #CHF * Not in acute exacerbation * daily weight , I& O * Last echo (2014): mild TR, mild mitral annular calcification, RV systolic pressure elevated at 50-60mmHg #FEN * Dc fluids if she eating and drinking well * monitor lytes * Sodium controlled diet #Prophylaxis * Heparin 5000units sq daily #Disposition * Full code * Admit to med-surg * waiting for [facility] re evaluate and Milagro evaluate for Fedaxomycin and fecal implant Visit type - Emergency Visit Emergency Visit: Yes ED Registration Date: 04/25/18 Care time: The patient presented to the Emergency Department on the above date and was hospitalized for further evaluation of their emergent condition. - New Patient This patient is new to me today: No - Critical Care Critical Care patient: No
--- NOTE | 2018-05-03 16:07 | PN ---
Teaching Attending Note Name of Resident: Carmelo Louis ATTENDING PHYSICIAN STATEMENT I saw and evaluated the patient. I reviewed the resident's note and discussed the case with the resident. I agree with the resident's findings and plan as documented. SUBJECTIVE: No fever or chills. had diarrhea q 2 h yesterday. had BRBPR yesterday. OBJECTIVE: NAD. CV: RRR, 3/6 SM at base. Lungs: CTAB Abd: soft, old surgical scars. NT today. less distended. NL BS today Ext: No edema ASSESSMENT AND PLAN: 72 y/o lady with h/o C diff colitis x 2, HTN, diverticulitis, s/p partial colectomy, recto-vaginal fistula s/p resection , CHF who presented with diarrhea . 1- Diarrhea: Flex sig with psudomembrabouse colitis, likely due to C diff. - cont po vanco and flagyl. - oral hydration . pt prefers no IVF. diarrhea improved today - follow rest of stool tests - advance diet - Abd distention is better today with Nl BS. Monitor - will d/w GI the use of Fidaxomicin - d/w her Stool transplant , she is not interested 2- H/o heart failure: cont to hold lasix . Cont toprol 3- hematochezia : started after flex sig and Bx. likely form Bx site. will monitor 3- DVT px
[2018-05-03] MEDS: MELATONIN 5 MG TABLETS PO PRN (23:26)
[2018-05-04] MEDS: HEPARIN NA (PORCINE) 5,000 UNITS/ML 1ML VIAL SQ SCH ×3 (05:35→21:02)
[2018-05-04] MEDS: VANCOMYCIN 250 MG/5 ML ORAL SOLUTION PO SCH ×3 (05:35→18:39)
[2018-05-04 07:40] LABS: BASO % 0.7 % (0-2.0); EOS % 2.1 % (0-4.5); HEMATOCRIT 26.9 % (32.4-45.2); HEMOGLOBIN 9.1 GM/dL (10.7-15.3); MCHC 33.9 g/dl (32.0-36.0); MEAN CELL VOLUME 58.8 fl (80-96); MEAN PLT VOLUME 9.7 fl (7.5-11.1); MONO % 5.9 % (3.8-10.2); NEUT % 75.3 % (42.8-82.8); PLATELET COUNT 294 K/MM3 (134-434); RBC 4.58 M/mm3 (3.60-5.2); RDW 15.8 % (11.6-15.6); WHITE BLOOD COUNT 10.1 K/mm3 (4.0-10.0)
[2018-05-04 08:05] LABS: MCH 19.9 pg (25.7-33.7)
[2018-05-04 08:11] LABS: ANION GAP 6 MMOL/L (8-16); BLOOD UREA NITROGEN 12 mg/dL (7-18); CHLORIDE 109 mmol/L (98-107); CO2 26 mmol/L (21-32); CREATININE 1.1 mg/dL (0.55-1.3); GLUCOSE,RANDOM 107 mg/dL (74-106); MAGNESIUM 2.3 mg/dL (1.8-2.4); PHOSPHOROUS 3.6 mg/dL (2.5-4.9); POTASSIUM 3.2 mmol/L (3.5-5.1); SODIUM 142 mmol/L (136-145)
[2018-05-04] MEDS ORDERED: POTASSIUM CHLORIDE TABS 20 MEQ TABLET.ER (FP) PO ONE (08:29)
[2018-05-04] MEDS: CHOLESTYRAMINE/ASPARTAME 4 GM PACKET PO SCH (11:18)
[2018-05-04] MEDS: MUPIROCIN 2% TOPICAL OINTMENT 22 GM TUBE TP SCH (11:22)
[2018-05-04 11:42] LABS: ANISOCYTOSIS 2+; MACROCYTOSIS 0; OVALOCYTE 1+; PLATELET ESTIMATE NORMAL; TARGET CELLS 1+; TEAR DROP CELLS 1+
[2018-05-04 12:04] VITALS: BMI 29.5
--- NOTE | 2018-05-04 13:18 | PN ---
Physical Exam: SUBJECTIVE: Patient seen and examined at bedside- no acute events overnight. patient only had 2 episodes of diarrhea overnight and there was no blood involved- she denies any CP/SOb/N/V fevers or chills OBJECTIVE: Vital Signs Period Temp Pulse Resp BP Sys/Yañez Pulse Ox Last 24 Hr 98.2 F-98.7 F 61-76 18-20 127-147/56-64 96-96 GENERAL: The patient is awake, alert, and fully oriented, in no acute distress. EYES: EOMI; PEERLA; no scleral icterus. NECK: no JVD; no lymphadenopathy LUNGS: CTA B/L; no rales, rhonchi or wheezing. HEART: Regular rate and rhythm, S1, S2 without murmur, rub or gallop. ABDOMEN: Soft, slightly distended, but impoving; non-tender +BS in all 4 quadrants. EXTREMITIES: 2+ pulses, warm, well-perfused, no edema. NEUROLOGICAL: Cranial nerves II through XII grossly intact. Normal speech, gait not observed. PSYCH: Normal mood, normal affect. SKIN: Warm, dry, normal turgor, no rashes or lesions noted Laboratory Results - last 24 hr 05/04/18 05/04/18 06:30 06:30 WBC 10.1 H RBC 4.58 Hgb 9.1 L Hct 26.9 L MCV 58.8 L MCH 19.9 L MCHC 33.9 RDW 15.8 H Plt Count 294 MPV 9.7 Absolute Neuts (auto) 7.6 Neutrophils % 75.3 Neutrophils % (Manual) 73.0 Band Neutrophils % 0.0 Lymphocytes % 16.0 Lymphocytes % (Manual) 16.0 D Monocytes % 5.9 Monocytes % (Manual) 1 L Eosinophils % 2.1 Eosinophils % (Manual) 3.0 Basophils % 0.7 Basophils % (Manual) 1.0 D Myelocytes % (Man) 2 D Promyelocytes % (Man) 0 Blast Cells % (Manual) 0 Nucleated RBC % 0 Metamyelocytes 1 Hypochromia 2+ Platelet Estimate Normal Polychromasia 1+ Poikilocytosis 2+ Basophilic Stippling 1+ Anisocytosis 2+ Microcytosis 3+ Macrocytosis 0 Target Cells 1+ Tear Drop Cells 1+ Ovalocytes 1+ Sodium 142 Potassium 3.2 L Chloride 109 H Carbon Dioxide 26 Anion Gap 6 L BUN 12 Creatinine 1.1 Creat Clearance w eGFR 48.69 Random Glucose 107 H Calcium 8.0 L Phosphorus 3.6 Magnesium 2.3 Active Medications Generic Name Dose Route Start Last Admin Trade Name Lucrecia PRN Reason Stop Dose Admin Acetaminophen 650 mg 04/30/18 18:17 Tylenol - PO Q6H PRN FEVER Cholestyramine Resin 4 gm 05/01/18 10:00 05/04/18 11:18 Questran Light Packet - PO 4 gm DAILY JORGE Administration Heparin Sodium (Porcine) 5,000 unit 04/30/18 22:00 05/04/18 05:35 Heparin - SQ Not Given TID JORGE Metronidazole 500 mg in 100 mls @ 100 mls/hr 05/01/18 02:00 05/04/18 11:18 Flagyl 500mg Premixed Ivpb - IVPB 100 mls/hr Q8H-IV JORGE Administration Melatonin 5 mg 04/30/18 18:17 05/03/18 23:26 Melatonin PO 5 mg HS PRN Administration INSOMNIA Metoprolol Succinate 50 mg 05/01/18 10:00 05/04/18 11:16 Toprol Xl - PO 50 mg DAILY JORGE Administration Mupirocin 1 applic 05/01/18 10:00 05/04/18 11:22 Bactroban 2% Ointment - TP 1 applic DAILY JORGE Administration Sodium Chloride 2 spray 05/01/18 06:51 05/01/18 09:07 [place] Nasal [place] - NS 2 spray BID PRN Administration NASAL CONGESTION Vancomycin HCl 250 mg 05/01/18 00:00 05/04/18 11:35 Vancomycin Oral Solution PO 250 mg Q6HPO JORGE Administration Zolpidem Tartrate 5 mg 04/30/18 18:17 Ambien - PO HS PRN INSOMNIA ASSESSMENT/PLAN: Diarrhea likely 2/2 infectious colitis, Hx of C. diff -Leukocytosis, improving -Stool culture negative -C.diff Ag and toxin negative -Blood cultures negative -GI (Dr. Mccall) consulted. Recommendations appreciated. -Questran 4gm daily -c/w vanco and flagyl -to find out from dr mccall if patient can take fodixomycin as an outpatient ; verses bolus/pulse dosing of vanco #Hypertension: chronic, controlled -Continue Metoprolol 50mg daily #CHF -Not in acute exacerbation -will continue to monitor -Last echo (2014): mild TR, mild mitral annular calcification, RV systolic pressure elevated at 50-60mmHg #FEN -IV NS @83cc/hr -Hypokalemia, repleted -routine bmp monitoring -Sodium controlled diet #Prophylaxis -Heparin 5000units sq daily #Disposition -Full code Problem List - Problems (1) MARIANN (acute kidney injury) Code(s): N17.9 - ACUTE KIDNEY FAILURE, UNSPECIFIED (2) Diarrhea Code(s): R19.7 - DIARRHEA, UNSPECIFIED Qualifiers: Diarrhea type: unspecified type Qualified Code(s): R19.7 - Diarrhea, unspecified (3) Infectious diarrhea Code(s): A09 - INFECTIOUS GASTROENTERITIS AND COLITIS, UNSPECIFIED Visit type - Emergency Visit Emergency Visit: Yes ED Registration Date: 04/25/18 Care time: The patient presented to the Emergency Department on the above date and was hospitalized for further evaluation of their emergent condition. - New Patient This patient is new to me today: Yes Date on this admission: 05/04/18 - Critical Care Critical Care patient: No
--- NOTE | 2018-05-04 15:04 | PN ---
Progress Note (short form) - Note Progress Note: sno blood in stools had a good night less diarrhea today Vital Signs Period Temp Pulse Resp BP Sys/Yañez Pulse Ox Last 24 Hr 98.0 F-98.7 F 56-76 16-20 127-147/56-64 96-96 cor-rrr lungs clear abd soft,nt ext no edema CBC, BMP 05/04/18 06:30 05/04/18 06:30 Microbiology 04/28/18 16:30 Blood - Peripheral Venous Blood Culture - Final NO GROWTH AFTER 5 DAYS INCUBATION 04/28/18 16:30 Blood - Peripheral Venous Blood Culture - Final NO GROWTH AFTER 5 DAYS INCUBATION 04/30/18 12:00 Colon Fluid Salmonella/Shigella Culture - Final NO GROWTH OF SALMONELLA OR SHIGELLA SPECIES OBTAINED 04/30/18 12:00 Colon Fluid Campylobacter Culture - Final NO GROWTH OF CAMPYLOBACTER SPECIES OBTAINED 04/30/18 12:00 Colon Fluid Yersinia Culture - Final NO GROWTH OF YERSINIA SPECIES OBTAINED 04/30/18 12:00 Colon Fluid Vibrio Culture - Final NO GROWTH OF VIBRIO SPECIES OBTAINED 04/30/18 12:00 Colon Fluid Escherichia coli 0157 Culture - Final NO GROWTH OF E COLI 0157 OBTAINED 04/30/18 12:00 Stool Cryptosporidium Antigen - Final 04/30/18 12:00 Stool Giardia Antigen (BLANCA) - Final 04/25/18 12:12 Blood - Peripheral Venous Blood Culture - Final NO GROWTH AFTER 5 DAYS INCUBATION 04/25/18 12:12 Blood - Peripheral Venous Blood Culture - Final NO GROWTH AFTER 5 DAYS INCUBATION 04/29/18 16:30 Stool Norovirus GI - Preliminary 04/29/18 16:30 Stool Norovirus GII - Preliminary 04/27/18 09:45 Rectal Swab VRE Culture - Final Vr Ec Faecium 04/26/18 10:00 Stool Clostridium difficile Antigen (BLANCA) - Final 04/26/18 10:00 Stool Clostridium difficile Toxin Assay - Final 04/26/18 10:00 Stool Salmonella/Shigella Culture - Final NO GROWTH OF SALMONELLA OR SHIGELLA SPECIES OBTAINED 04/26/18 10:00 Stool Campylobacter Culture - Final NO GROWTH OF CAMPYLOBACTER SPECIES OBTAINED 04/26/18 10:00 Stool Yersinia Culture - Final NO GROWTH OF YERSINIA SPECIES OBTAINED 04/26/18 10:00 Stool Vibrio Culture - Final NO GROWTH OF VIBRIO SPECIES OBTAINED 04/26/18 10:00 Stool Escherichia coli 0157 Culture - Final NO GROWTH OF E COLI 0157 OBTAINED a/p flex sig with pseudomembranes, back on po vancomycin and iv flagyl GI f/u ongoing norovirus pcr pending consider fidaxomin when ready for discharge perirectal adenopathy as well noted on ct scan history of IBS- on viberzi since 2017- f/u labs in am Problem List - Problems (1) Diarrhea Code(s): R19.7 - DIARRHEA, UNSPECIFIED Qualifiers: Diarrhea type: unspecified type Qualified Code(s): R19.7 - Diarrhea, unspecified (2) MARIANN (acute kidney injury) Code(s): N17.9 - ACUTE KIDNEY FAILURE, UNSPECIFIED
--- NOTE | 2018-05-04 15:11 | PATH ---
Surgical Pathology Report Patient Name: BINH DAVALOS [facility]. Rec. #: [id number] /Age/Gender: 1945 (Age: 72) / F Account: [id number] Location: [facility] MED/SURG Taken: 04/30/2018 Received: 05/03/2018 Reported: 05/04/2018 Physicians: Sheldon Cervantes M.D. Specimen(s) Received BX SIGMOID Clinical History Diarrhea Postoperative diagnosis: Pseudomembranous colitis Final Diagnosis SIGMOID, PSEUDOMEMBRANE, BIOPSY: COLONIC MUCOSA WITH MARKED CHRONIC ACTIVE COLITIS AND ASSOCIATED FOCAL ULCERATION. NO SURFACE EXUDATE IDENTIFIED. Comment: No granuloma or dysplasia identified. Findings are non-specific. Differential diagnosis includes infection, medication, diverticular disease, and possibility of inflammatory bowel disease. Suggest clinical, microbiology, and endoscopic correlation. Electronically Signed Verena Mcdaniel M.D. Gross Description Received in formalin, labeled "biopsy sigmoid pseudomembrane" are 2 fishman, irregular portions of soft tissue measuring 0.3 and 0.4 cm. in greatest dimension. The specimens are submitted in toto in one cassette. /05/03/201805/03/2018
--- NOTE | 2018-05-04 15:28 | PN ---
Teaching Attending Note Name of Resident: Georgina Hussein ATTENDING PHYSICIAN STATEMENT I saw and evaluated the patient. I reviewed the resident's note and discussed the case with the resident. I agree with the resident's findings and plan as documented. SUBJECTIVE: No fever or chills . no Abd pain. No diarrhea this am ( small non bloody BM ) . 2 Bms yesterday. OBJECTIVE: NAD. CV: RRR, 3/6 SM at base. Lungs: CTAB Abd: soft, old surgical scars. NT . less distended compared to yesterday. NL BS Ext: No edema ASSESSMENT AND PLAN: 72 y/o lady with h/o C diff colitis x 2, HTN, diverticulitis, s/p partial colectomy, recto-vaginal fistula s/p resection , CHF who presented with diarrhea . 1- Diarrhea: Due to c diff colitis - cont po vanco and IV flagyl. - oral hydration. - Abd distention is better today with Nl BS. Monitor - Unfortunately, Fidaxomicin is not formulary in house. will stat at dc 2- H/o heart failure: cont to hold lasix . Cont toprol 3- hematochezia : started after flex sig and Bx. likely form Bx site.resolved 3- DVT px She will be ready for DC soon if continues to have no diarrhea
[2018-05-04] MEDS: MELATONIN 5 MG TABLETS PO PRN (21:45)
[2018-05-05] MEDS: VANCOMYCIN 250 MG/5 ML ORAL SOLUTION PO SCH ×4 (00:21→17:30)
[2018-05-05] MEDS: HEPARIN NA (PORCINE) 5,000 UNITS/ML 1ML VIAL SQ SCH ×3 (05:26→21:03)
[2018-05-05 07:21] LABS: HEMATOCRIT 28.2 % (32.4-45.2); HEMOGLOBIN 9.2 GM/dL (10.7-15.3); MCHC 32.7 g/dl (32.0-36.0); MEAN CELL VOLUME 59.5 fl (80-96); MEAN PLT VOLUME 9.2 fl (7.5-11.1); PLATELET COUNT 309 K/MM3 (134-434); RBC 4.73 M/mm3 (3.60-5.2); RDW 15.8 % (11.6-15.6); WHITE BLOOD COUNT 13.3 K/mm3 (4.0-10.0)
[2018-05-05 07:29] LABS: MCH 19.4 pg (25.7-33.7)
[2018-05-05 07:46] LABS: ANION GAP 7 MMOL/L (8-16); BLOOD UREA NITROGEN 12 mg/dL (7-18); CALCIUM 8.4 mg/dL (8.5-10.1); CHLORIDE 113 mmol/L (98-107); CO2 23 mmol/L (21-32); CREATININE 1.1 mg/dL (0.55-1.3); GLUCOSE,RANDOM 105 mg/dL (74-106); MAGNESIUM 2.2 mg/dL (1.8-2.4); PHOSPHOROUS 3.2 mg/dL (2.5-4.9); POTASSIUM 3.3 mmol/L (3.5-5.1); SODIUM 143 mmol/L (136-145)
[2018-05-05] MEDS ORDERED: POTASSIUM CHLORIDE TABS 20 MEQ TABLET.ER (FP) PO ONE (08:03)
--- NOTE | 2018-05-05 08:16 | PN ---
Physical Exam: SUBJECTIVE: Patient seen and examined at bedside- no acute events overnight; patient states that she had more frequent bowel movements overnight however they were more formed than previously and there was no blood present, she denies any CP/SOB/N/V fevers or chills OBJECTIVE: Vital Signs Period Temp Pulse Resp BP Sys/Yañez Pulse Ox Last 24 Hr 97.9 F-98.5 F 56-72 16-20 128-145/56-71 96 GENERAL: The patient is awake, alert, and fully oriented, in no acute distress. EYES:EOMI; PEERLA no scleral icterus. NECK: no JVD. no lymphadenopathy LUNGS: CTA B/L no rales, rhonchi or wheezing HEART: Regular rate and rhythm, S1, S2 without murmur, rub or gallop. ABDOMEN: Soft, distended; non-tender +BS in all 4 quadrants EXTREMITIES: 2+ pulses, warm, well-perfused, no edema. PSYCH: Normal mood, normal affect. SKIN: Warm, dry, normal turgor, no rashes or lesions noted Laboratory Results - last 24 hr 05/04/18 05/04/18 05/05/18 06:30 06:30 06:00 WBC 13.3 H RBC 4.73 Hgb 9.2 L Hct 28.2 L MCV 59.5 L MCH 19.4 L MCHC 32.7 RDW 15.8 H Plt Count 309 MPV 9.2 Neutrophils % (Manual) 73.0 Band Neutrophils % 0.0 Lymphocytes % (Manual) 16.0 D Monocytes % (Manual) 1 L Eosinophils % (Manual) 3.0 Basophils % (Manual) 1.0 D Myelocytes % (Man) 2 D Promyelocytes % (Man) 0 Blast Cells % (Manual) 0 Metamyelocytes 1 Hypochromia 2+ Platelet Estimate Normal Polychromasia 1+ Poikilocytosis 2+ Basophilic Stippling 1+ Anisocytosis 2+ Microcytosis 3+ Macrocytosis 0 Target Cells 1+ Tear Drop Cells 1+ Ovalocytes 1+ Sodium 142 Potassium 3.2 L Chloride 109 H Carbon Dioxide 26 Anion Gap 6 L BUN 12 Creatinine 1.1 Creat Clearance w eGFR 48.69 Random Glucose 107 H Calcium 8.0 L Phosphorus 3.6 Magnesium 2.3 05/05/18 06:00 WBC RBC Hgb Hct MCV MCH MCHC RDW Plt Count MPV Neutrophils % (Manual) Band Neutrophils % Lymphocytes % (Manual) Monocytes % (Manual) Eosinophils % (Manual) Basophils % (Manual) Myelocytes % (Man) Promyelocytes % (Man) Blast Cells % (Manual) Metamyelocytes Hypochromia Platelet Estimate Polychromasia Poikilocytosis Basophilic Stippling Anisocytosis Microcytosis Macrocytosis Target Cells Tear Drop Cells Ovalocytes Sodium 143 Potassium 3.3 L Chloride 113 H Carbon Dioxide 23 Anion Gap 7 L BUN 12 Creatinine 1.1 Creat Clearance w eGFR 48.69 Random Glucose 105 Calcium 8.4 L Phosphorus 3.2 Magnesium 2.2 Active Medications Generic Name Dose Route Start Last Admin Trade Name Freq PRN Reason Stop Dose Admin Acetaminophen 650 mg 04/30/18 18:17 Tylenol - PO Q6H PRN FEVER Cholestyramine Resin 4 gm 05/01/18 10:00 05/04/18 11:18 Questran Light Packet - PO 4 gm DAILY JORGE Administration Heparin Sodium (Porcine) 5,000 unit 04/30/18 22:00 05/05/18 05:26 Heparin - SQ Not Given TID JORGE Metronidazole 500 mg in 100 mls @ 100 mls/hr 05/01/18 02:00 05/05/18 01:23 Flagyl 500mg Premixed Ivpb - IVPB 100 mls/hr Q8H-IV JORGE Administration Melatonin 5 mg 04/30/18 18:17 05/04/18 21:45 Melatonin PO 5 mg HS PRN Administration INSOMNIA Metoprolol Succinate 50 mg 05/01/18 10:00 05/04/18 11:16 Toprol Xl - PO 50 mg DAILY JORGE Administration Mupirocin 1 applic 05/01/18 10:00 05/04/18 11:22 Bactroban 2% Ointment - TP 1 applic DAILY JORGE Administration Potassium Chloride 40 meq 05/05/18 08:03 [place] - PO 05/05/18 08:04 ONCE ONE Sodium Chloride 2 spray 05/01/18 06:51 05/01/18 09:07 [place] Nasal [place] - NS 2 spray BID PRN Administration NASAL CONGESTION Vancomycin HCl 250 mg 05/01/18 00:00 05/05/18 05:25 Vancomycin Oral Solution PO 250 mg Q6HPO JORGE Administration Zolpidem Tartrate 5 mg 04/30/18 18:17 Ambien - PO HS PRN INSOMNIA ASSESSMENT/PLAN: Diarrhea likely 2/2 infectious colitis, Hx of C. diff -Leukocytosis; decreased yesterday now trending upward again to 13.3 -Stool culture negative -C.diff Ag and toxin negative -Blood cultures negative -GI (Dr. Mccall) consulted. Recommendations appreciated. -Questran 4gm daily -c/w vanco and flagyl -to find out from dr mccall if patient can take fodixomycin as an outpatient ; verses bolus/pulse dosing of vanco #Hypertension: chronic, controlled -Continue Metoprolol 50mg daily #CHF -Not in acute exacerbation -will continue to monitor -Last echo (2014): mild TR, mild mitral annular calcification, RV systolic pressure elevated at 50-60mmHg #FEN -IV NS @83cc/hr -Hypokalemia, repleted -routine bmp monitoring -Sodium controlled diet #Prophylaxis -Heparin 5000units sq daily #Disposition -Full code Problem List - Problems (1) MARIANN (acute kidney injury) Code(s): N17.9 - ACUTE KIDNEY FAILURE, UNSPECIFIED (2) Diarrhea Code(s): R19.7 - DIARRHEA, UNSPECIFIED Qualifiers: Diarrhea type: unspecified type Qualified Code(s): R19.7 - Diarrhea, unspecified (3) Infectious diarrhea Code(s): A09 - INFECTIOUS GASTROENTERITIS AND COLITIS, UNSPECIFIED Visit type - Emergency Visit Emergency Visit: Yes ED Registration Date: 04/25/18 Care time: The patient presented to the Emergency Department on the above date and was hospitalized for further evaluation of their emergent condition. - New Patient This patient is new to me today: Yes Date on this admission: 05/05/18 - Critical Care Critical Care patient: No
[2018-05-05] MEDS: CHOLESTYRAMINE/ASPARTAME 4 GM PACKET PO SCH (09:21)
[2018-05-05] MEDS: MUPIROCIN 2% TOPICAL OINTMENT 22 GM TUBE TP SCH (09:22)
--- NOTE | 2018-05-05 09:33 | PN ---
Progress Note, Physician History of Present Illness: Patient examined and case discussed with Dr. Navarro GI FOLLOW UP NOTE Patient examined lying in bed. Patient states she had 4 frequent BM during the night and experienced an episode of diarrhe in the morning. WBC increased to 13.3. Denies abdominal pain, nausea, vomiting, blood in stool. - Current Medication List Current Medications: Active Medications Acetaminophen (Tylenol -) 650 mg PO Q6H PRN PRN Reason: FEVER Cholestyramine Resin (Questran Light Packet -) 4 gm PO DAILY [facility] Last Admin: 05/05/18 09:21 Dose: 4 gm Heparin Sodium (Porcine) (Heparin -) 5,000 unit SQ TID [facility] Last Admin: 05/05/18 05:26 Dose: Not Given Metronidazole (Flagyl 500mg Premixed Ivpb -) 500 mg in 100 mls @ 100 mls/hr IVPB Q8H-IV [facility] Last Admin: 05/05/18 09:20 Dose: 100 mls/hr Melatonin (Melatonin) 5 mg PO HS PRN PRN Reason: INSOMNIA Last Admin: 05/04/18 21:45 Dose: 5 mg Metoprolol Succinate (Toprol Xl -) 50 mg PO DAILY [facility] Last Admin: 05/05/18 09:21 Dose: 50 mg Mupirocin (Bactroban 2% Ointment -) 1 applic TP DAILY [facility] Last Admin: 05/05/18 09:22 Dose: 1 applic Sodium Chloride ([place] Nasal [place] -) 2 spray NS BID PRN PRN Reason: NASAL CONGESTION Last Admin: 05/01/18 09:07 Dose: 2 spray Vancomycin HCl (Vancomycin Oral Solution) 250 mg PO Q6HPO [facility] Last Admin: 05/05/18 05:25 Dose: 250 mg Zolpidem Tartrate (Ambien -) 5 mg PO HS PRN PRN Reason: INSOMNIA - Objective Vital Signs: Vital Signs Temperature 98.2 F 05/05/18 08:58 Pulse Rate 81 05/05/18 08:58 Respiratory Rate 18 05/05/18 08:58 Blood Pressure 154/71 05/05/18 08:58 O2 Sat by Pulse Oximetry (%) 96 05/04/18 21:00 Constitutional: Yes: Well Nourished, No Distress, Calm Eyes: Yes: Conjunctiva Clear Cardiovascular: Yes: Regular Rate and Rhythm Respiratory: Yes: Regular, CTA Bilaterally Gastrointestinal: Yes: Normal Bowel Sounds, Soft, Distention (mild), Other ( high tympany). No: WNL, Abdomen, Obese, Ascites, Hematemesis, Hemorrhoids, Hepatomegaly, Hernia, Hyperactive Bowel Sounds, Hypoactive Bowel Sounds, Melena , Palpable Mass, Pulsatile Mass, Rectal Bleeding, Splenomegaly, Tenderness, Tenderness, Epigastrium, Tenderness, Rebound, Vomiting Neurological: Yes: Alert, Oriented Labs: CBC, BMP 05/05/18 06:00 05/05/18 06:00 Laboratory Results - last 24 hr 05/04/18 05/05/18 05/05/18 06:30 06:00 06:00 WBC 13.3 H RBC 4.73 Hgb 9.2 L Hct 28.2 L MCV 59.5 L MCH 19.4 L MCHC 32.7 RDW 15.8 H Plt Count 309 MPV 9.2 Neutrophils % (Manual) 73.0 Band Neutrophils % 0.0 Lymphocytes % (Manual) 16.0 D Monocytes % (Manual) 1 L Eosinophils % (Manual) 3.0 Basophils % (Manual) 1.0 D Myelocytes % (Man) 2 D Promyelocytes % (Man) 0 Blast Cells % (Manual) 0 Metamyelocytes 1 Hypochromia 2+ Platelet Estimate Normal Polychromasia 1+ Poikilocytosis 2+ Basophilic Stippling 1+ Anisocytosis 2+ Microcytosis 3+ Macrocytosis 0 Target Cells 1+ Tear Drop Cells 1+ Ovalocytes 1+ Sodium 143 Potassium 3.3 L Chloride 113 H Carbon Dioxide 23 Anion Gap 7 L BUN 12 Creatinine 1.1 Creat Clearance w eGFR 48.69 Random Glucose 105 Calcium 8.4 L Phosphorus 3.2 Magnesium 2.2 <Emelina Hong - Last Filed: 05/05/18 09:30> - Current Medication List Current Medications: Active Medications Acetaminophen (Tylenol -) 650 mg PO Q6H PRN PRN Reason: FEVER Heparin Sodium (Porcine) (Heparin -) 5,000 unit SQ TID [facility] Last Admin: 05/05/18 13:50 Dose: Not Given Metronidazole (Flagyl 500mg Premixed Ivpb -) 500 mg in 100 mls @ 100 mls/hr IVPB Q8H-IV [facility] Last Admin: 05/05/18 09:20 Dose: 100 mls/hr Melatonin (Melatonin) 5 mg PO HS PRN PRN Reason: INSOMNIA Last Admin: 05/04/18 21:45 Dose: 5 mg Metoprolol Succinate (Toprol Xl -) 50 mg PO DAILY [facility] Last Admin: 05/05/18 09:21 Dose: 50 mg Mupirocin (Bactroban 2% Ointment -) 1 applic TP DAILY [facility] Last Admin: 05/05/18 09:22 Dose: 1 applic Sodium Chloride ([place] Nasal [place] -) 2 spray NS BID PRN PRN Reason: NASAL CONGESTION Last Admin: 05/01/18 09:07 Dose: 2 spray Vancomycin HCl (Vancomycin Oral Solution) 250 mg PO Q6HPO [facility] Last Admin: 05/05/18 17:30 Dose: 250 mg Zolpidem Tartrate (Ambien -) 5 mg PO HS PRN PRN Reason: INSOMNIA - Objective Vital Signs: Vital Signs Temperature 98.1 F 05/05/18 16:30 Pulse Rate 65 05/05/18 16:30 Respiratory Rate 18 05/05/18 16:30 Blood Pressure 144/68 05/05/18 16:30 O2 Sat by Pulse Oximetry (%) 96 05/04/18 21:00 Labs: CBC, BMP 05/05/18 06:00 05/05/18 06:00 <hCandrakant Navarro - Last Filed: 05/05/18 19:00> Problem List - Problems (1) Diarrhea Assessment/Plan: >continue with cholestyramine daily >Flagyl 500mg IVPB and vanco 250mg PO Code(s): R19.7 - DIARRHEA, UNSPECIFIED Qualifiers: Diarrhea type: unspecified type Qualified Code(s): R19.7 - Diarrhea, unspecified (2) Infectious diarrhea Code(s): A09 - INFECTIOUS GASTROENTERITIS AND COLITIS, UNSPECIFIED <Emelina Hong - Last Filed: 05/05/18 09:30> - Problems (1) Infectious diarrhea Code(s): A09 - INFECTIOUS GASTROENTERITIS AND COLITIS, UNSPECIFIED <Chandrakant Navarro - Last Filed: 05/05/18 19:00>
--- NOTE | 2018-05-05 09:49 | PN ---
Teaching Attending Note Name of Resident: Georgina Hussein ATTENDING PHYSICIAN STATEMENT I saw and evaluated the patient. I reviewed the resident's note and discussed the case with the resident. I agree with the resident's findings and plan as documented. SUBJECTIVE: Patient is feeling better with no acute distress, 2 formed stool. No diarrhea. OBJECTIVE: Vital Signs Temperature 98.2 F 05/05/18 08:58 Pulse Rate 81 05/05/18 08:58 Respiratory Rate 18 05/05/18 08:58 Blood Pressure 154/71 05/05/18 08:58 O2 Sat by Pulse Oximetry (%) 96 05/04/18 21:00 GENERAL: The patient is awake, alert, and fully oriented, in no acute distress. EYES:EOMI; PEERLA no scleral icterus. NECK: no JVD. no lymphadenopathy LUNGS: CTA B/L no rales, rhonchi or wheezing HEART: Regular rate and rhythm, S1, S2 without murmur, rub or gallop. ABDOMEN: Soft, distended; non-tender +BS in all 4 quadrants EXTREMITIES: 2+ pulses, warm, well-perfused, no edema. PSYCH: Normal mood, normal affect. SKIN: Warm, dry, normal turgor, no rashes or lesions noted CBCD WBC 13.3 K/mm3 (4.0-10.0) H 05/05/18 06:00 RBC 4.73 M/mm3 (3.60-5.2) 05/05/18 06:00 Hgb 9.2 GM/dL (10.7-15.3) L 05/05/18 06:00 Hct 28.2 % (32.4-45.2) L 05/05/18 06:00 MCV 59.5 fl (80-96) L 05/05/18 06:00 MCHC 32.7 g/dl (32.0-36.0) 05/05/18 06:00 RDW 15.8 % (11.6-15.6) H 05/05/18 06:00 Plt Count 309 K/MM3 (134-434) 05/05/18 06:00 MPV 9.2 fl (7.5-11.1) 05/05/18 06:00 CMP Sodium 143 mmol/L (136-145) 05/05/18 06:00 Potassium 3.3 mmol/L (3.5-5.1) L 05/05/18 06:00 Chloride 113 mmol/L (98-107) H 05/05/18 06:00 Carbon Dioxide 23 mmol/L (21-32) 05/05/18 06:00 Anion Gap 7 MMOL/L (8-16) L 05/05/18 06:00 BUN 12 mg/dL (7-18) 05/05/18 06:00 Creatinine 1.1 mg/dL (0.55-1.3) 05/05/18 06:00 Creat Clearance w eGFR 48.69 (>60) 05/05/18 06:00 Random Glucose 105 mg/dL (74-106) 05/05/18 06:00 Calcium 8.4 mg/dL (8.5-10.1) L 05/05/18 06:00 Total Bilirubin 0.6 mg/dL (0.2-1) 04/26/18 09:50 AST 21 U/L (15-37) 04/26/18 09:50 ALT 38 U/L (13-61) 04/26/18 09:50 Alkaline Phosphatase 114 U/L (45-117) 04/26/18 09:50 Total Protein 5.9 g/dl (6.4-8.2) L 04/26/18 09:50 Albumin 2.8 g/dl (3.4-5.0) L 04/26/18 09:50 Hepatic Panel Total Bilirubin 0.6 mg/dL (0.2-1) 04/26/18 09:50 AST 21 U/L (15-37) 04/26/18 09:50 ALT 38 U/L (13-61) 04/26/18 09:50 Alkaline Phosphatase 114 U/L (45-117) 04/26/18 09:50 Albumin 2.8 g/dl (3.4-5.0) L 04/26/18 09:50 Home Medications Medication Instructions Recorded Calcium Carbonate/Vitamin D3 1 each PO DAILY 02/21/13 [Oyster Shell Calcium 500+D Tab] Furosemide [Lasix -] 20 mg PO DAILY 02/21/13 Zinc Sulfate [Orazinc -] 220 mg PO DAILY #0 capsule 02/24/13 Multivitamin [Multivitamins] 1 cap PO DAILY 08/02/13 Ascorbic Acid [Vitamin C -] 500 mg PO DAILY 04/25/18 Eluxadoline [Viberzi] 100 mg PO DAILY 04/25/18 Ibuprofen [Motrin -] 600 mg PO BID 04/25/18 Omeprazole 40 mg PO DAILY 04/25/18 Metoprolol Succinate 50 mg PO DAILY 04/29/18 Current Medications Generic Name Dose Route Start Last Admin Trade Name Freq PRN Reason Stop Dose Admin Acetaminophen 650 mg 04/30/18 18:17 Tylenol - PO Q6H PRN FEVER Cholestyramine Resin 4 gm 05/01/18 10:00 05/05/18 09:21 Questran Light Packet - PO 4 gm DAILY [facility] Administration Heparin Sodium (Porcine) 5,000 unit 04/30/18 22:00 05/05/18 05:26 Heparin - SQ Not Given TID [facility] Metronidazole 500 mg in 100 mls @ 100 mls/hr 05/01/18 02:00 05/05/18 09:20 Flagyl 500mg Premixed Ivpb - IVPB 100 mls/hr Q8H-IV [facility] Administration Melatonin 5 mg 04/30/18 18:17 05/04/18 21:45 Melatonin PO 5 mg HS PRN Administration INSOMNIA Metoprolol Succinate 50 mg 05/01/18 10:00 05/05/18 09:21 Toprol Xl - PO 50 mg DAILY [facility] Administration Mupirocin 1 applic 05/01/18 10:00 05/05/18 09:22 Bactroban 2% Ointment - TP 1 applic DAILY [facility] Administration Sodium Chloride 2 spray 05/01/18 06:51 05/01/18 09:07 [place] Nasal [place] - NS 2 spray BID PRN Administration NASAL CONGESTION Vancomycin HCl 250 mg 05/01/18 00:00 05/05/18 05:25 Vancomycin Oral Solution PO 250 mg Q6HPO [facility] Administration Zolpidem Tartrate 5 mg 04/30/18 18:17 Ambien - PO HS PRN INSOMNIA Last echo (2014): mild TR, mild mitral annular calcification, RV systolic pressure elevated at 50-60mmHg ASSESSMENT AND PLan:Patient is a 72 year old female with past medical history of HTN, Diverticulosis/Diverticulitis s/p partial colectomy, Rectovaginal fistula s/p resection, s/p ileostomy s/p reversal, hx of C. diff infection (2014 ) and CHF, presented with recurrent diarrhea after stopping the vancomycin a week ago. # C-diff colitis : on Po Vancomycin 250mg q6h, Bacid was discontinued by Dr. mccall (GI), ID (Dr. Carreon) consult appreciated. On questeran daily. s/p flex sig with pseudomembranes, back on po vancomycin and iv flagyl. norovirus pcr pending. consider fidaxomin when ready for discharge perirectal adenopathy as well noted on CT scan. # Hx of IBS: on viberzi since 2017, on hold as per GI. #Hypertension: controlled, continue home medications # Hypokalemia will replete. #CHF stable now, cont. toprol DVT Px: Heparin 5000units sq daily, Full code Admit to med-surg
[2018-05-05] MEDS: MELATONIN 5 MG TABLETS PO PRN (21:02)
[2018-05-06] MEDS: VANCOMYCIN 250 MG/5 ML ORAL SOLUTION PO SCH ×4 (01:09→17:15)
[2018-05-06] MEDS: HEPARIN NA (PORCINE) 5,000 UNITS/ML 1ML VIAL SQ SCH ×3 (05:21→21:19)
--- NOTE | 2018-05-06 07:46 | PN ---
Physical Exam: SUBJECTIVE: Patient seen and examined at bedside- no acute events overnihgt; pateint states she is no loner having diarrhea. denies any CP/SOB/N/V fevers or chills OBJECTIVE: Vital Signs Period Temp Pulse Resp BP Sys/Yañez Pulse Ox Last 24 Hr 98 F-98.2 F 65-85 18-18 135-154/60-71 GENERAL: The patient is awake, alert, and fully oriented, in no acute distress. EYES: EOMI; PEERLA; no scleral icterus. . NECK: no JVD, no lymphadenopathy. LUNGS: CTA B/L; no rales, rhonchi or wheezing HEART: Regular rate and rhythm, S1, S2 without murmur, rub or gallop. ABDOMEN: Soft, nontender, distended, normoactive bowel sounds, no guarding, no rebound, no hepatosplenomegaly, no masses. EXTREMITIES: 2+ pulses, warm, well-perfused, no edema. NEUROLOGICAL: Cranial nerves II through XII grossly intact. Normal speech, gait not observed. PSYCH: Normal mood, normal affect. SKIN: Warm, dry, normal turgor, no rashes or lesions noted Laboratory Results - last 24 hr 04/30/18 04/30/18 05/05/18 15:45 17:00 06:00 Sodium 143 Potassium 3.3 L Chloride 113 H Carbon Dioxide 23 Anion Gap 7 L BUN 12 Creatinine 1.1 Creat Clearance w eGFR 48.69 Random Glucose 105 Calcium 8.4 L Phosphorus 3.2 Magnesium 2.2 Stool O & P Wet [place] Permanent Slide Final report Final report Active Medications Generic Name Dose Route Start Last Admin Trade Name Kevq PRN Reason Stop Dose Admin Acetaminophen 650 mg 04/30/18 18:17 Tylenol - PO Q6H PRN FEVER Heparin Sodium (Porcine) 5,000 unit 04/30/18 22:00 05/06/18 05:21 Heparin - SQ Not Given TID [facility] Metronidazole 500 mg in 100 mls @ 100 mls/hr 05/01/18 02:00 05/06/18 01:10 Flagyl 500mg Premixed Ivpb - IVPB 100 mls/hr Q8H-IV [facility] Administration Melatonin 5 mg 04/30/18 18:17 05/05/18 21:02 Melatonin PO 5 mg HS PRN Administration INSOMNIA Metoprolol Succinate 50 mg 05/01/18 10:00 05/05/18 09:21 Toprol Xl - PO 50 mg DAILY [facility] Administration Mupirocin 1 applic 05/01/18 10:00 05/05/18 09:22 Bactroban 2% Ointment - TP 1 applic DAILY [facility] Administration Sodium Chloride 2 spray 05/01/18 06:51 05/01/18 09:07 [place] Nasal [place] - NS 2 spray BID PRN Administration NASAL CONGESTION Vancomycin HCl 250 mg 05/01/18 00:00 05/06/18 06:00 Vancomycin Oral Solution PO 250 mg Q6HPO [facility] Administration Zolpidem Tartrate 5 mg 04/30/18 18:17 Ambien - PO HS PRN INSOMNIA ASSESSMENT/PLAN: Diarrhea likely 2/2 infectious colitis, Hx of C. diff -Leukocytosis; downtrending from 13.3 to 12 -Stool culture : fianl read= norovirus -C.diff Ag and toxin negative -Blood cultures negative -GI (Dr. Mccall) consulted. Recommendations appreciated. -Questran 4gm daily -c/w vanco and flagyl -to find out from dr mccall/dr montejo if patient can take fodixomycin as an outpatient ; verses bolus/pulse dosing of vanco #Hypertension: chronic, controlled -Continue Metoprolol 50mg daily #CHF -Not in acute exacerbation -will continue to monitor -Last echo (2014): mild TR, mild mitral annular calcification, RV systolic pressure elevated at 50-60mmHg #FEN -IV NS @83cc/hr -Hypokalemia, repleted -routine bmp monitoring -Sodium controlled diet #Prophylaxis -Heparin 5000units sq daily #Disposition -Full code Problem List - Problems (1) MARIANN (acute kidney injury) Code(s): N17.9 - ACUTE KIDNEY FAILURE, UNSPECIFIED (2) Diarrhea Code(s): R19.7 - DIARRHEA, UNSPECIFIED Qualifiers: Diarrhea type: unspecified type Qualified Code(s): R19.7 - Diarrhea, unspecified (3) Infectious diarrhea Code(s): A09 - INFECTIOUS GASTROENTERITIS AND COLITIS, UNSPECIFIED Visit type - Emergency Visit Emergency Visit: Yes ED Registration Date: 04/25/18 Care time: The patient presented to the Emergency Department on the above date and was hospitalized for further evaluation of their emergent condition. - New Patient This patient is new to me today: Yes Date on this admission: 05/06/18 - Critical Care Critical Care patient: No
--- NOTE | 2018-05-06 09:00 | PN ---
Progress Note, Physician History of Present Illness: Patient examined and case discussed with Dr. Navarro GI FOLLOW UP NOTE Patient examined lying in bed. Patient states feeling better, denies diarrhea during the night. She states she had 2 episodes of soft BM. Denies abdominal pain, blood in stool. - Current Medication List Current Medications: Active Medications Acetaminophen (Tylenol -) 650 mg PO Q6H PRN PRN Reason: FEVER Heparin Sodium (Porcine) (Heparin -) 5,000 unit SQ TID [facility] Last Admin: 05/06/18 05:21 Dose: Not Given Metronidazole (Flagyl 500mg Premixed Ivpb -) 500 mg in 100 mls @ 100 mls/hr IVPB Q8H-IV [facility] Last Admin: 05/06/18 01:10 Dose: 100 mls/hr Melatonin (Melatonin) 5 mg PO HS PRN PRN Reason: INSOMNIA Last Admin: 05/05/18 21:02 Dose: 5 mg Metoprolol Succinate (Toprol Xl -) 50 mg PO DAILY [facility] Last Admin: 05/05/18 09:21 Dose: 50 mg Mupirocin (Bactroban 2% Ointment -) 1 applic TP DAILY [facility] Last Admin: 05/05/18 09:22 Dose: 1 applic Sodium Chloride ([place] Nasal [place] -) 2 spray NS BID PRN PRN Reason: NASAL CONGESTION Last Admin: 05/01/18 09:07 Dose: 2 spray Vancomycin HCl (Vancomycin Oral Solution) 250 mg PO Q6HPO [facility] Last Admin: 05/06/18 06:00 Dose: 250 mg Zolpidem Tartrate (Ambien -) 5 mg PO HS PRN PRN Reason: INSOMNIA - Objective Vital Signs: Vital Signs Temperature 98 F 05/06/18 06:00 Pulse Rate 85 05/06/18 06:00 Respiratory Rate 18 05/06/18 06:00 Blood Pressure 135/67 05/06/18 06:00 O2 Sat by Pulse Oximetry (%) 96 05/04/18 21:00 Constitutional: Yes: No Distress, Calm Eyes: Yes: Conjunctiva Clear HENT: Yes: Normocephalic Cardiovascular: Yes: Regular Rate and Rhythm Respiratory: Yes: Regular, CTA Bilaterally Gastrointestinal: Yes: Normal Bowel Sounds, Soft, Other (high tympany). No: WNL , Abdomen, Obese, Ascites, Distention, Hematemesis, Hemorrhoids, Hepatomegaly, Hernia, Hyperactive Bowel Sounds, Hypoactive Bowel Sounds, Melena, Palpable Mass , Pulsatile Mass, Rectal Bleeding, Splenomegaly, Tenderness, Tenderness, Epigastrium, Tenderness, Rebound, Vomiting Neurological: Yes: Alert, Oriented Psychiatric: Yes: Alert, Oriented Problem List - Problems (1) Diarrhea Assessment/Plan: >continue with cholestyramine daily >Flagyl 500mg IVPB and vanco 250mg PO Code(s): R19.7 - DIARRHEA, UNSPECIFIED Qualifiers: Diarrhea type: unspecified type Qualified Code(s): R19.7 - Diarrhea, unspecified (2) Infectious diarrhea Assessment/Plan: > continue with vanco 250mg PO q6h >cont with isolation precaution for c-diff >stool cultures neg Code(s): A09 - INFECTIOUS GASTROENTERITIS AND COLITIS, UNSPECIFIED
[2018-05-06 09:01] LABS: HEMATOCRIT 29.6 % (32.4-45.2); HEMOGLOBIN 9.7 GM/dL (10.7-15.3); MCHC 32.7 g/dl (32.0-36.0); MEAN CELL VOLUME 60.3 fl (80-96); MEAN PLT VOLUME 8.8 fl (7.5-11.1); PLATELET COUNT 307 K/MM3 (134-434); RBC 4.92 M/mm3 (3.60-5.2); WHITE BLOOD COUNT 12.1 K/mm3 (4.0-10.0)
[2018-05-06 09:18] LABS: MCH 19.7 pg (25.7-33.7)
[2018-05-06 09:23] LABS: ANION GAP 8 MMOL/L (8-16); BLOOD UREA NITROGEN 11 mg/dL (7-18); CALCIUM 8.3 mg/dL (8.5-10.1); CHLORIDE 110 mmol/L (98-107); CO2 23 mmol/L (21-32); CREATININE 1.1 mg/dL (0.55-1.3); GLUCOSE,RANDOM 97 mg/dL (74-106); POTASSIUM 3.6 mmol/L (3.5-5.1); SODIUM 141 mmol/L (136-145)
[2018-05-06] MEDS ORDERED: PT OWN MED DRAWER 7, Y5N ONE ×2 (10:12→17:11)
[2018-05-06] MEDS: MUPIROCIN 2% TOPICAL OINTMENT 22 GM TUBE TP SCH (10:17)
--- NOTE | 2018-05-06 16:12 | PN ---
Progress Note (short form) - Note Progress Note: good night overnight 2 loose bms today Vital Signs Period Temp Pulse Resp BP Sys/Yañez Pulse Ox Last 24 Hr 97.8 F-98.1 F 62-85 18-18 135-149/60-79 cor-rrr lungs clear abd soft,nt ext no edema CBC, BMP 05/06/18 08:12 05/06/18 08:12 Microbiology 04/29/18 16:30 Stool Norovirus GI - Final 04/29/18 16:30 Stool Norovirus GII - Final a/p flex sig with pseudomembranes, back on po vancomycin and iv flagyl GI f/u ongoing norovirus pcr negative consider fidaxomin when ready for discharge if her insurance will cover it would defer to GI regarding discharge perirectal adenopathy as well noted on ct scan history of IBS- on viberzi since 2017- f/u labs in am Problem List - Problems (1) Diarrhea Code(s): R19.7 - DIARRHEA, UNSPECIFIED Qualifiers: Diarrhea type: unspecified type Qualified Code(s): R19.7 - Diarrhea, unspecified (2) MARIANN (acute kidney injury) Code(s): N17.9 - ACUTE KIDNEY FAILURE, UNSPECIFIED
--- NOTE | 2018-05-06 17:18 | PN ---
Teaching Attending Note Name of Resident: Georgina Hussein ATTENDING PHYSICIAN STATEMENT I saw and evaluated the patient. I reviewed the resident's note and discussed the case with the resident. I agree with the resident's findings and plan as documented. SUBJECTIVE: Patient feels better. No acute distress. 2 formed stool today. OBJECTIVE: Vital Signs Temperature 97.8 F 05/06/18 08:20 Pulse Rate 62 05/06/18 08:20 Respiratory Rate 18 05/06/18 08:20 Blood Pressure 149/79 05/06/18 08:20 O2 Sat by Pulse Oximetry (%) 96 05/04/18 21:00 GENERAL: The patient is awake, alert, and fully oriented, in no acute distress. EYES:EOMI; PEERLA no scleral icterus. NECK: no JVD. no lymphadenopathy LUNGS: CTA B/L no rales, rhonchi or wheezing HEART: Regular rate and rhythm, S1, S2 without murmur, rub or gallop. ABDOMEN: Soft, distended; non-tender +BS in all 4 quadrants EXTREMITIES: 2+ pulses, warm, well-perfused, no edema. PSYCH: Normal mood, normal affect. SKIN: Warm, dry, normal turgor, no rashes or lesions noted CBCD WBC 12.1 K/mm3 (4.0-10.0) H 05/06/18 08:12 RBC 4.92 M/mm3 (3.60-5.2) 05/06/18 08:12 Hgb 9.7 GM/dL (10.7-15.3) L 05/06/18 08:12 Hct 29.6 % (32.4-45.2) L 05/06/18 08:12 MCV 60.3 fl (80-96) L 05/06/18 08:12 MCHC 32.7 g/dl (32.0-36.0) 05/06/18 08:12 RDW 16.0 % (11.6-15.6) H 05/06/18 08:12 Plt Count 307 K/MM3 (134-434) 05/06/18 08:12 MPV 8.8 fl (7.5-11.1) 05/06/18 08:12 CMP Sodium 141 mmol/L (136-145) 05/06/18 08:12 Potassium 3.6 mmol/L (3.5-5.1) 05/06/18 08:12 Chloride 110 mmol/L (98-107) H 05/06/18 08:12 Carbon Dioxide 23 mmol/L (21-32) 05/06/18 08:12 Anion Gap 8 MMOL/L (8-16) 05/06/18 08:12 BUN 11 mg/dL (7-18) 05/06/18 08:12 Creatinine 1.1 mg/dL (0.55-1.3) 05/06/18 08:12 Creat Clearance w eGFR 48.69 (>60) 05/06/18 08:12 Random Glucose 97 mg/dL (74-106) 05/06/18 08:12 Calcium 8.3 mg/dL (8.5-10.1) L 05/06/18 08:12 Total Bilirubin 0.6 mg/dL (0.2-1) 04/26/18 09:50 AST 21 U/L (15-37) 04/26/18 09:50 ALT 38 U/L (13-61) 04/26/18 09:50 Alkaline Phosphatase 114 U/L (45-117) 04/26/18 09:50 Total Protein 5.9 g/dl (6.4-8.2) L 04/26/18 09:50 Albumin 2.8 g/dl (3.4-5.0) L 04/26/18 09:50 Current Medications Generic Name Dose Route Start Last Admin Trade Name Freq PRN Reason Stop Dose Admin Acetaminophen 650 mg 04/30/18 18:17 Tylenol - PO Q6H PRN FEVER Heparin Sodium (Porcine) 5,000 unit 04/30/18 22:00 05/06/18 13:35 Heparin - SQ Not Given TID [facility] Metronidazole 500 mg in 100 mls @ 100 mls/hr 05/01/18 02:00 05/06/18 17:16 Flagyl 500mg Premixed Ivpb - IVPB 100 mls/hr Q8H-IV [facility] Administration Melatonin 5 mg 04/30/18 18:17 05/05/18 21:02 Melatonin PO 5 mg HS PRN Administration INSOMNIA Metoprolol Succinate 50 mg 05/01/18 10:00 05/06/18 10:17 Toprol Xl - PO 50 mg DAILY [facility] Administration Mupirocin 1 applic 05/01/18 10:00 05/06/18 10:17 Bactroban 2% Ointment - TP 1 applic DAILY [facility] Administration Sodium Chloride 2 spray 05/01/18 06:51 05/01/18 09:07 [place] Nasal [place] - NS 2 spray BID PRN Administration NASAL CONGESTION Vancomycin HCl 250 mg 05/01/18 00:00 05/06/18 17:15 Vancomycin Oral Solution PO 250 mg Q6HPO [facility] Administration Zolpidem Tartrate 5 mg 04/30/18 18:17 Ambien - PO HS PRN INSOMNIA Home Medications Medication Instructions Recorded Calcium Carbonate/Vitamin D3 1 each PO DAILY 02/21/13 [Oyster Shell Calcium 500+D Tab] Furosemide [Lasix -] 20 mg PO DAILY 02/21/13 Zinc Sulfate [Orazinc -] 220 mg PO DAILY #0 capsule 02/24/13 Multivitamin [Multivitamins] 1 cap PO DAILY 08/02/13 Ascorbic Acid [Vitamin C -] 500 mg PO DAILY 04/25/18 Eluxadoline [Viberzi] 100 mg PO DAILY 04/25/18 Ibuprofen [Motrin -] 600 mg PO BID 04/25/18 Omeprazole 40 mg PO DAILY 04/25/18 Metoprolol Succinate 50 mg PO DAILY 04/29/18 Last echo (2014): mild TR, mild mitral annular calcification, RV systolic pressure elevated at 50-60mmHg ASSESSMENT AND PLan:Patient is a 72 year old female with past medical history of HTN, Diverticulosis/Diverticulitis s/p partial colectomy, Rectovaginal fistula s/p resection, s/p ileostomy s/p reversal, hx of C. diff infection (2014 ) and CHF, presented with recurrent diarrhea after stopping the vancomycin a week ago. # C-diff colitis : on Po Vancomycin 250mg q6h, on IV Flagyl , Bacid was discontinued by Dr. mccall (GI), ID (Dr. Carreon) consult appreciated. On questeran daily. s/p flex sig with pseudomembranes, back on po vancomycin and iv flagyl. norovirus pcr pending. consider fidaxomin when ready for discharge perirectal adenopathy as well noted on CT scan. # Acute Leukocytosis due to Cdiff. colitis: will continue to ,monitor is trending down. if continues to trend down, will discharge the patient in am. # Hx of IBS: on viberzi since 2017, on hold as per GI. #Hypertension: controlled, continue home medications # Hypokalemia will replete. #CHF stable now, cont. toprol DVT Px: Heparin 5000units sq daily, Full code Admit to med-surg
[2018-05-06] MEDS: MELATONIN 5 MG TABLETS PO PRN (21:20)
[2018-05-07] MEDS ORDERED: PT OWN MED DRAWER 7, Y5N ONE ×3 (00:37→18:11)
[2018-05-07] MEDS: VANCOMYCIN 250 MG/5 ML ORAL SOLUTION PO SCH ×4 (00:53→18:23)
[2018-05-07 06:53] LABS: HEMATOCRIT 29.3 % (32.4-45.2); HEMOGLOBIN 9.6 GM/dL (10.7-15.3); MCHC 32.7 g/dl (32.0-36.0); MEAN CELL VOLUME 60.3 fl (80-96); MEAN PLT VOLUME 8.5 fl (7.5-11.1); PLATELET COUNT 326 K/MM3 (134-434); RBC 4.86 M/mm3 (3.60-5.2); RDW 15.9 % (11.6-15.6); WHITE BLOOD COUNT 12.6 K/mm3 (4.0-10.0)
[2018-05-07] MEDS: HEPARIN NA (PORCINE) 5,000 UNITS/ML 1ML VIAL SQ SCH ×3 (07:12→21:20)
[2018-05-07 07:26] LABS: ANION GAP 6 MMOL/L (8-16); BLOOD UREA NITROGEN 14 mg/dL (7-18); CALCIUM 8.3 mg/dL (8.5-10.1); CHLORIDE 108 mmol/L (98-107); CO2 24 mmol/L (21-32); GLUCOSE,RANDOM 94 mg/dL (74-106); MAGNESIUM 2.4 mg/dL (1.8-2.4); PHOSPHOROUS 3.9 mg/dL (2.5-4.9); POTASSIUM 3.5 mmol/L (3.5-5.1); SODIUM 138 mmol/L (136-145)
[2018-05-07 08:02] LABS: MCH 19.7 pg (25.7-33.7)
[2018-05-07] MEDS: MUPIROCIN 2% TOPICAL OINTMENT 22 GM TUBE TP SCH (09:17)
--- NOTE | 2018-05-07 09:26 | PN ---
Teaching Attending Note Name of Resident: Georgina Hussein ATTENDING PHYSICIAN STATEMENT I saw and evaluated the patient. I reviewed the resident's note and discussed the case with the resident. I agree with the resident's findings and plan as documented. SUBJECTIVE: Diarrhea is better, no fever or chills. OBJECTIVE: Vital Signs Temperature 98.1 F 05/06/18 22:00 Pulse Rate 67 05/06/18 22:00 Respiratory Rate 18 05/06/18 22:00 Blood Pressure 138/58 L 05/06/18 22:00 O2 Sat by Pulse Oximetry (%) 93 L 05/06/18 21:00 GENERAL: The patient is awake, alert, and fully oriented, NAD. EYES:EOMI; PEERLA no scleral icterus. NECK: no JVD. no lymphadenopathy LUNGS: CTA B/L no rales, rhonchi or wheezing HEART: Regular rate and rhythm, S1, S2 without murmur, rub or gallop. ABDOMEN: Soft, ND, NT, positive for BS. EXTREMITIES: 2+ pulses, warm, well-perfused, no edema. PSYCH: Normal mood, normal affect. SKIN: Warm, dry, normal turgor, no rashes or lesions noted CBCD WBC 12.6 K/mm3 (4.0-10.0) H 05/07/18 05:45 RBC 4.86 M/mm3 (3.60-5.2) 05/07/18 05:45 Hgb 9.6 GM/dL (10.7-15.3) L 05/07/18 05:45 Hct 29.3 % (32.4-45.2) L 05/07/18 05:45 MCV 60.3 fl (80-96) L 05/07/18 05:45 MCHC 32.7 g/dl (32.0-36.0) 05/07/18 05:45 RDW 15.9 % (11.6-15.6) H 05/07/18 05:45 Plt Count 326 K/MM3 (134-434) 05/07/18 05:45 MPV 8.5 fl (7.5-11.1) 05/07/18 05:45 CMP Sodium 138 mmol/L (136-145) 05/07/18 05:45 Potassium 3.5 mmol/L (3.5-5.1) 05/07/18 05:45 Chloride 108 mmol/L (98-107) H 05/07/18 05:45 Carbon Dioxide 24 mmol/L (21-32) 05/07/18 05:45 Anion Gap 6 MMOL/L (8-16) L 05/07/18 05:45 BUN 14 mg/dL (7-18) 05/07/18 05:45 Creatinine 1.0 mg/dL (0.55-1.3) 05/07/18 05:45 Creat Clearance w eGFR 54.35 (>60) 05/07/18 05:45 Random Glucose 94 mg/dL (74-106) 05/07/18 05:45 Calcium 8.3 mg/dL (8.5-10.1) L 05/07/18 05:45 Total Bilirubin 0.6 mg/dL (0.2-1) 04/26/18 09:50 AST 21 U/L (15-37) 04/26/18 09:50 ALT 38 U/L (13-61) 04/26/18 09:50 Alkaline Phosphatase 114 U/L (45-117) 04/26/18 09:50 Total Protein 5.9 g/dl (6.4-8.2) L 04/26/18 09:50 Albumin 2.8 g/dl (3.4-5.0) L 04/26/18 09:50 Current Medications Generic Name Dose Route Start Last Admin Trade Name Freq PRN Reason Stop Dose Admin Acetaminophen 650 mg 04/30/18 18:17 Tylenol - PO Q6H PRN FEVER Heparin Sodium (Porcine) 5,000 unit 04/30/18 22:00 05/07/18 07:12 Heparin - SQ Not Given TID JORGE Metronidazole 500 mg in 100 mls @ 100 mls/hr 05/01/18 02:00 05/07/18 09:09 Flagyl 500mg Premixed Ivpb - IVPB 100 mls/hr Q8H-IV JORGE Administration Melatonin 5 mg 04/30/18 18:17 05/06/18 21:20 Melatonin PO 5 mg HS PRN Administration INSOMNIA Metoprolol Succinate 50 mg 05/01/18 10:00 05/07/18 09:09 Toprol Xl - PO 50 mg DAILY JORGE Administration Mupirocin 1 applic 05/01/18 10:00 05/07/18 09:17 Bactroban 2% Ointment - TP Not Given DAILY JORGE Sodium Chloride 2 spray 05/01/18 06:51 05/01/18 09:07 [place] Nasal [place] - NS 2 spray BID PRN Administration NASAL CONGESTION Vancomycin HCl 250 mg 05/01/18 00:00 05/07/18 07:11 Vancomycin Oral Solution PO 250 mg Q6HPO JORGE Administration Zolpidem Tartrate 5 mg 04/30/18 18:17 Ambien - PO HS PRN INSOMNIA Home Medications Medication Instructions Recorded Calcium Carbonate/Vitamin D3 1 each PO DAILY 02/21/13 [Oyster Shell Calcium 500+D Tab] Furosemide [Lasix -] 20 mg PO DAILY 02/21/13 Zinc Sulfate [Orazinc -] 220 mg PO DAILY #0 capsule 02/24/13 Multivitamin [Multivitamins] 1 cap PO DAILY 08/02/13 Ascorbic Acid [Vitamin C -] 500 mg PO DAILY 04/25/18 Eluxadoline [Viberzi] 100 mg PO DAILY 04/25/18 Ibuprofen [Motrin -] 600 mg PO BID 04/25/18 Omeprazole 40 mg PO DAILY 04/25/18 Metoprolol Succinate 50 mg PO DAILY 04/29/18 Microbiology 04/29/18 16:30 Stool Norovirus GI - Final 04/29/18 16:30 Stool Norovirus GII - Final 04/28/18 16:30 Blood - Peripheral Venous Blood Culture - Final NO GROWTH AFTER 5 DAYS INCUBATION 04/28/18 16:30 Blood - Peripheral Venous Blood Culture - Final NO GROWTH AFTER 5 DAYS INCUBATION 04/30/18 12:00 Colon Fluid Salmonella/Shigella Culture - Final NO GROWTH OF SALMONELLA OR SHIGELLA SPECIES OBTAINED 04/30/18 12:00 Colon Fluid Campylobacter Culture - Final NO GROWTH OF CAMPYLOBACTER SPECIES OBTAINED 04/30/18 12:00 Colon Fluid Yersinia Culture - Final NO GROWTH OF YERSINIA SPECIES OBTAINED 04/30/18 12:00 Colon Fluid Vibrio Culture - Final NO GROWTH OF VIBRIO SPECIES OBTAINED 04/30/18 12:00 Colon Fluid Escherichia coli 0157 Culture - Final NO GROWTH OF E COLI 0157 OBTAINED 04/30/18 12:00 Stool Cryptosporidium Antigen - Final 04/30/18 12:00 Stool Giardia Antigen (BLANCA) - Final 04/25/18 12:12 Blood - Peripheral Venous Blood Culture - Final NO GROWTH AFTER 5 DAYS INCUBATION 04/25/18 12:12 Blood - Peripheral Venous Blood Culture - Final NO GROWTH AFTER 5 DAYS INCUBATION 04/27/18 09:45 Rectal Swab VRE Culture - Final Vr Ec Faecium 04/26/18 10:00 Stool Clostridium difficile Antigen (BLANCA) - Final 04/26/18 10:00 Stool Clostridium difficile Toxin Assay - Final 04/26/18 10:00 Stool Salmonella/Shigella Culture - Final NO GROWTH OF SALMONELLA OR SHIGELLA SPECIES OBTAINED 04/26/18 10:00 Stool Campylobacter Culture - Final NO GROWTH OF CAMPYLOBACTER SPECIES OBTAINED 04/26/18 10:00 Stool Yersinia Culture - Final NO GROWTH OF YERSINIA SPECIES OBTAINED 04/26/18 10:00 Stool Vibrio Culture - Final NO GROWTH OF VIBRIO SPECIES OBTAINED 04/26/18 10:00 Stool Escherichia coli 0157 Culture - Final NO GROWTH OF E COLI 0157 OBTAINED Laboratory Tests 04/29/18 22:00 Rotavirus Report Status Positive H Last echo (2014): mild TR, mild mitral annular calcification, RV systolic pressure elevated at 50-60mmHg ASSESSMENT AND PLan:Patient is a 72 year old female with past medical history of HTN, Diverticulosis/Diverticulitis s/p partial colectomy, Rectovaginal fistula s/p resection, s/p ileostomy s/p reversal, hx of C. diff infection (2014 ) and CHF, presented with recurrent diarrhea after stopping the vancomycin a week ago. # C-diff colitis : continue Po Vancomycin 250mg q6h, on IV Flagyl , ID (Dr. Carreon) consult appreciated. On questeran daily. s/p flex sig with pseudomembranes, back on po vancomycin and iv flagyl. consider fidaxomin when ready for discharge ,perirectal adenopathy as well noted on CT scan. Continue current treatment as per GI. # Acute Leukocytosis due to Cdiff. colitis: will continue to ,monitor is trending down. if continues to trend down, will discharge the patient in am. # Hx of IBS: on viberzi since 2016, on hold as per GI. #Hypertension: controlled, continue home medications # Hypokalemia will replete. #CHF stable now, cont. toprol DVT Px: Heparin 5000units sq daily, Full code Admit to med-surg
--- NOTE | 2018-05-07 09:26 | PN ---
Physical Exam: SUBJECTIVE: Patient seen and examined at bedside- no acute events overnight- patient only had 1 episode of diarrhea overnight however no blood was present. Dr. Navarro saw patient last night- still wants patient to stay here through the weekend. denies any CP/SOB/N/V fevers or chills OBJECTIVE: Vital Signs Period Temp Pulse Resp BP Sys/Yañ[place] Pulse Ox Last 24 Hr 98.1 F-98.1 F 67-72 18-18 138-150/58-61 93 GENERAL: The patient is awake, alert, and fully oriented, in no acute distress. EYES: PEERLA; EOMI; no scleral icterus NECK: no JVD; no lymphadenopathy LUNGS: CTA B/L; no rales, rhonchi or wheezing HEART: Regular rate and rhythm, S1, S2 without murmur, rub or gallop. ABDOMEN: Soft, nontender,slight distention, normoactive bowel sounds, no guarding, no rebound, no hepatosplenomegaly, no masses. EXTREMITIES: 2+ pulses, warm, well-perfused, no edema. . PSYCH: Normal mood, normal affect. SKIN: Warm, dry, normal turgor, no rashes or lesions noted Laboratory Results - last 24 hr 05/06/18 05/07/18 05/07/18 08:12 05:45 05:45 WBC 12.6 H RBC 4.86 Hgb 9.6 L Hct 29.3 L MCV 60.3 L MCH 19.7 L MCHC 32.7 RDW 15.9 H Plt Count 326 MPV 8.5 Sodium 141 138 Potassium 3.6 3.5 Chloride 110 H 108 H Carbon Dioxide 23 24 Anion Gap 8 6 L BUN 11 14 Creatinine 1.1 1.0 Creat Clearance w eGFR 48.69 54.35 Random Glucose 97 94 Calcium 8.3 L 8.3 L Phosphorus 3.9 Magnesium 2.4 C-Reactive Protein 05/07/18 05:45 WBC RBC Hgb Hct MCV MCH MCHC RDW Plt Count MPV Sodium Potassium Chloride Carbon Dioxide Anion Gap BUN Creatinine Creat Clearance w eGFR Random Glucose Calcium Phosphorus Magnesium C-Reactive Protein 0.8 H Active Medications Generic Name Dose Route Start Last Admin Trade Name Freq PRN Reason Stop Dose Admin Acetaminophen 650 mg 04/30/18 18:17 Tylenol - PO Q6H PRN FEVER Heparin Sodium (Porcine) 5,000 unit 04/30/18 22:00 05/07/18 07:12 Heparin - SQ Not Given TID JORGE Metronidazole 500 mg in 100 mls @ 100 mls/hr 05/01/18 02:00 05/07/18 09:09 Flagyl 500mg Premixed Ivpb - IVPB 100 mls/hr Q8H-IV JORGE Administration Melatonin 5 mg 04/30/18 18:17 05/06/18 21:20 Melatonin PO 5 mg HS PRN Administration INSOMNIA Metoprolol Succinate 50 mg 05/01/18 10:00 05/07/18 09:09 Toprol Xl - PO 50 mg DAILY JORGE Administration Mupirocin 1 applic 05/01/18 10:00 05/07/18 09:17 Bactroban 2% Ointment - TP Not Given DAILY JORGE Sodium Chloride 2 spray 05/01/18 06:51 05/01/18 09:07 [place] Nasal [place] - NS 2 spray BID PRN Administration NASAL CONGESTION Vancomycin HCl 250 mg 05/01/18 00:00 05/07/18 07:11 Vancomycin Oral Solution PO 250 mg Q6HPO JORGE Administration Zolpidem Tartrate 5 mg 04/30/18 18:17 Ambien - PO HS PRN INSOMNIA ASSESSMENT/PLAN: Diarrhea likely 2/2 infectious colitis, Hx of C. diff -Leukocytosis; downtrending from 13.3 to 12.6 -Stool culture : final read= norovirus -C.diff Ag and toxin negative -Blood cultures negative -Dr. Navarro seeing the patient- wants patient to stay here through the weekend -Questran 4gm daily -c/w vanco and flagyl -need to find out from manager social responsibility is fidoxamcin is covered by patients insurance #Hypertension: chronic, controlled -Continue Metoprolol 50mg daily #CHF -Not in acute exacerbation -will continue to monitor -Last echo (2014): mild TR, mild mitral annular calcification, RV systolic pressure elevated at 50-60mmHg #FEN -IV NS @83cc/hr -monitor electrolyte -Sodium controlled diet #Prophylaxis -Heparin 5000units sq daily #Disposition -Full code Problem List - Problems (1) MARIANN (acute kidney injury) Code(s): N17.9 - ACUTE KIDNEY FAILURE, UNSPECIFIED (2) Diarrhea Code(s): R19.7 - DIARRHEA, UNSPECIFIED Qualifiers: Diarrhea type: unspecified type Qualified Code(s): R19.7 - Diarrhea, unspecified (3) Infectious diarrhea Code(s): A09 - INFECTIOUS GASTROENTERITIS AND COLITIS, UNSPECIFIED Visit type - Emergency Visit Emergency Visit: Yes ED Registration Date: 04/25/18 Care time: The patient presented to the Emergency Department on the above date and was hospitalized for further evaluation of their emergent condition. - New Patient This patient is new to me today: Yes Date on this admission: 05/07/18 - Critical Care Critical Care patient: No
--- NOTE | 2018-05-07 17:20 | PN ---
GI Progress Note Subjective: still with diarrhea, no nausea no vomiting - Objective Vital Signs: Vital Signs Temperature 98.5 F 05/07/18 15:17 Pulse Rate 76 05/07/18 15:17 Respiratory Rate 18 05/07/18 15:17 Blood Pressure 147/67 05/07/18 15:17 O2 Sat by Pulse Oximetry (%) 93 L 05/07/18 09:00 Constitutional: Well Nourished Eyes: Yes: Conjunctiva Clear HENT: Yes: Atraumatic Neck: Yes: Supple Cardiovascular: Yes: Regular Rate and Rhythm Respiratory: Yes: CTA Bilaterally ...Auscultate: Yes: Normoactive Bowel Sounds ...Palpate: Yes: Soft. No: Firm/Rigid, Guarding, Pulsatile Mass, Splenomegaly, Tenderness, Tenderness, Epigastium Labs: CBC, BMP 05/07/18 05:45 05/07/18 05:45 Problem List - Problems (1) Infectious diarrhea Assessment/Plan: secondary to c.diff R> contiue antibiotics, made inquiry regarding Fidaxomicin as an outpatient possible d/c by THURSDAY Code(s): A09 - INFECTIOUS GASTROENTERITIS AND COLITIS, UNSPECIFIED
[2018-05-07] MEDS: CHOLESTYRAMINE/ASPARTAME 4 GM PACKET PO SCH (18:23)
[2018-05-07] MEDS: MELATONIN 5 MG TABLETS PO PRN (21:46)
[2018-05-08] MEDS: VANCOMYCIN 250 MG/5 ML ORAL SOLUTION PO SCH ×3 (00:12→11:26)
[2018-05-08] MEDS: HEPARIN NA (PORCINE) 5,000 UNITS/ML 1ML VIAL SQ SCH ×2 (05:53→15:11)
[2018-05-08 08:45] LABS: HEMATOCRIT 32.5 % (32.4-45.2); HEMOGLOBIN 10.6 GM/dL (10.7-15.3); MCHC 32.7 g/dl (32.0-36.0); MEAN CELL VOLUME 60.6 fl (80-96); MEAN PLT VOLUME 9.7 fl (7.5-11.1); PLATELET COUNT 395 K/MM3 (134-434); RBC 5.36 M/mm3 (3.60-5.2); RDW 16.4 % (11.6-15.6); WHITE BLOOD COUNT 12.6 K/mm3 (4.0-10.0)
[2018-05-08 08:52] LABS: MCH 19.8 pg (25.7-33.7)
[2018-05-08 09:33] LABS: ANION GAP 9 MMOL/L (8-16); BLOOD UREA NITROGEN 14 mg/dL (7-18); CALCIUM 8.3 mg/dL (8.5-10.1); CHLORIDE 110 mmol/L (98-107); CO2 23 mmol/L (21-32); CREATININE 1.2 mg/dL (0.55-1.3); GLUCOSE,RANDOM 100 mg/dL (74-106); POTASSIUM 3.8 mmol/L (3.5-5.1); SODIUM 141 mmol/L (136-145)
--- NOTE | 2018-05-08 09:48 | PN ---
Progress Note (short form) - Note Progress Note: Patient is feeling better with no acute distress. No nausea or vomiting. No further diarrhea. Vital Signs Temperature 98.2 F 05/07/18 22:00 Pulse Rate 72 05/07/18 22:00 Respiratory Rate 18 05/07/18 22:00 Blood Pressure 145/63 05/07/18 22:00 O2 Sat by Pulse Oximetry (%) 93 L 05/07/18 21:00 Initial Vital Signs Temp Pulse Resp BP Pulse Ox 99.6 F 101 H 20 125/65 99 04/25/18 11:27 04/25/18 11:27 04/25/18 11:27 04/25/18 11:27 04/25/18 11:27 GENERAL: The patient is awake, alert, and fully oriented, in no acute distress. EYES:EOMI; PEERLA no scleral icterus. NECK: no JVD. no lymphadenopathy LUNGS: CTA B/L no rales, rhonchi or wheezing HEART: Regular rate and rhythm, S1, S2 without murmur, rub or gallop. ABDOMEN: Soft, distended; non-tender +BS in all 4 quadrants EXTREMITIES: 2+ pulses, warm, well-perfused, no edema. PSYCH: Normal mood, normal affect. SKIN: Warm, dry, normal turgor, no rashes or lesions noted CBCD WBC 12.6 K/mm3 (4.0-10.0) H 05/08/18 06:00 RBC 5.36 M/mm3 (3.60-5.2) H 05/08/18 06:00 Hgb 10.6 GM/dL (10.7-15.3) L 05/08/18 06:00 Hct 32.5 % (32.4-45.2) 05/08/18 06:00 MCV 60.6 fl (80-96) L 05/08/18 06:00 MCHC 32.7 g/dl (32.0-36.0) 05/08/18 06:00 RDW 16.4 % (11.6-15.6) H 05/08/18 06:00 Plt Count 395 K/MM3 (134-434) D 05/08/18 06:00 MPV 9.7 fl (7.5-11.1) D 05/08/18 06:00 CMP Sodium 141 mmol/L (136-145) 05/08/18 06:00 Potassium 3.8 mmol/L (3.5-5.1) 05/08/18 06:00 Chloride 110 mmol/L (98-107) H 05/08/18 06:00 Carbon Dioxide 23 mmol/L (21-32) 05/08/18 06:00 Anion Gap 9 MMOL/L (8-16) 05/08/18 06:00 BUN 14 mg/dL (7-18) 05/08/18 06:00 Creatinine 1.2 mg/dL (0.55-1.3) 05/08/18 06:00 Creat Clearance w eGFR 44.04 (>60) 05/08/18 06:00 Random Glucose 100 mg/dL (74-106) 05/08/18 06:00 Calcium 8.3 mg/dL (8.5-10.1) L 05/08/18 06:00 Total Bilirubin 0.6 mg/dL (0.2-1) 04/26/18 09:50 AST 21 U/L (15-37) 04/26/18 09:50 ALT 38 U/L (13-61) 04/26/18 09:50 Alkaline Phosphatase 114 U/L (45-117) 04/26/18 09:50 Total Protein 5.9 g/dl (6.4-8.2) L 04/26/18 09:50 Albumin 2.8 g/dl (3.4-5.0) L 04/26/18 09:50 Current Medications Generic Name Dose Route Start Last Admin Trade Name Freq PRN Reason Stop Dose Admin Acetaminophen 650 mg 04/30/18 18:17 Tylenol - PO Q6H PRN FEVER Cholestyramine Resin 4 gm 05/07/18 17:30 05/07/18 18:23 Questran Light Packet - PO 4 gm DAILY JORGE Administration Heparin Sodium (Porcine) 5,000 unit 04/30/18 22:00 05/08/18 05:53 Heparin - SQ Not Given TID JORGE Metronidazole 500 mg in 100 mls @ 100 mls/hr 05/01/18 02:00 05/08/18 01:18 Flagyl 500mg Premixed Ivpb - IVPB 100 mls/hr Q8H-IV JORGE Administration Melatonin 5 mg 04/30/18 18:17 05/07/18 21:46 Melatonin PO 5 mg HS PRN Administration INSOMNIA Metoprolol Succinate 50 mg 05/01/18 10:00 05/07/18 09:09 Toprol Xl - PO 50 mg DAILY JORGE Administration Mupirocin 1 applic 05/01/18 10:00 05/07/18 09:17 Bactroban 2% Ointment - TP Not Given DAILY JORGE Sodium Chloride 2 spray 05/01/18 06:51 05/01/18 09:07 [place] Nasal [place] - NS 2 spray BID PRN Administration NASAL CONGESTION Vancomycin HCl 250 mg 05/01/18 00:00 05/08/18 05:53 Vancomycin Oral Solution PO 250 mg Q6HPO JORGE Administration Zolpidem Tartrate 5 mg 04/30/18 18:17 Ambien - PO HS PRN INSOMNIA Home Medications Medication Instructions Recorded Calcium Carbonate/Vitamin D3 1 each PO DAILY 02/21/13 [Oyster Shell Calcium 500+D Tab] Furosemide [Lasix -] 20 mg PO DAILY 02/21/13 Zinc Sulfate [Orazinc -] 220 mg PO DAILY #0 capsule 02/24/13 Multivitamin [Multivitamins] 1 cap PO DAILY 08/02/13 Ascorbic Acid [Vitamin C -] 500 mg PO DAILY 04/25/18 Eluxadoline [Viberzi] 100 mg PO DAILY 04/25/18 Ibuprofen [Motrin -] 600 mg PO BID 04/25/18 Omeprazole 40 mg PO DAILY 04/25/18 Metoprolol Succinate 50 mg PO DAILY 04/29/18 Last echo (2014): mild TR, mild mitral annular calcification, RV systolic pressure elevated at 50-60mmHg ASSESSMENT AND PLan:Patient is a 72 year old female with past medical history of HTN, Diverticulosis/Diverticulitis s/p partial colectomy, Rectovaginal fistula s/p resection, s/p ileostomy s/p reversal, hx of C. diff infection (2014 ) and CHF, presented with recurrent diarrhea after stopping the vancomycin a week ago. # C-diff colitis : on Po Vancomycin 250mg q6h, on IV Flagyl continue , GI Dr. mccall (GI), ID (Dr. Carreon) consult appreciated. On questeran daily to continue as per GI. s/p flex sig with pseudomembranes, back on po vancomycin and iv flagyl. Fidaxomin upon discharge as per perirectal adenopathy as well noted on CT scan. possible discharge in am. # Acute Leukocytosis due to Cdiff. colitis: will continue to monitor. possible discharge the patient in am. # Hx of IBS: on viberzi since 2017, on hold as per GI. #Hypertension: controlled, continue home medications # Hypokalemia will replete. #CHF stable now, cont. toprol DVT Px: Heparin 5000units sq daily, Full code Admit to med-surg Visit type - Emergency Visit Emergency Visit: Yes ED Registration Date: 04/25/18 Care time: The patient presented to the Emergency Department on the above date and was hospitalized for further evaluation of their emergent condition. - New Patient This patient is new to me today: No - Critical Care Critical Care patient: No - Discharge Referral Referred to [facility] No
[2018-05-08] MEDS: CHOLESTYRAMINE/ASPARTAME 4 GM PACKET PO SCH (10:30)
[2018-05-08] MEDS: MUPIROCIN 2% TOPICAL OINTMENT 22 GM TUBE TP SCH (10:30)
--- NOTE | 2018-05-08 12:16 | PN ---
GI Progress Note Subjective: diarrhea withmarked improvement Fidaxomicin approved will obtain from [facility] pharmacy arrangements were done priorto discharge - Objective Vital Signs: Vital Signs Temperature 98.2 F 05/07/18 22:00 Pulse Rate 72 05/07/18 22:00 Respiratory Rate 18 05/07/18 22:00 Blood Pressure 145/63 05/07/18 22:00 O2 Sat by Pulse Oximetry (%) 93 L 05/07/18 21:00 Constitutional: Well Nourished Eyes: Yes: Conjunctiva Clear HENT: Yes: Atraumatic Neck: Yes: Supple Cardiovascular: Yes: Regular Rate and Rhythm Respiratory: Yes: CTA Bilaterally ...Palpate: No: Firm/Rigid, Guarding, Hepatomegaly, Mass, Pulsatile Mass, Splenomegaly, Tenderness, Tenderness, Epigastium Labs: CBC, BMP 05/08/18 06:00 05/08/18 06:00 Problem List - Problems (1) Infectious diarrhea Assessment/Plan: C.di colitis R> okay to discharge continue Questran because of previous colectomy Code(s): A09 - INFECTIOUS GASTROENTERITIS AND COLITIS, UNSPECIFIED
[2018-05-08 12:29] VITALS: BP 160/71; PULSE 88; TEMP 98.8
--- NOTE | 2018-05-08 13:02 | DS ---
Physical Exam: SUBJECTIVE: Patient seen and examined Patient is feeling better with no acute distress, no nausea or vomiting. no further watery diarrhea. dr. mccall at bedside, discussed with the patient in details. OBJECTIVE: V Vital Signs Temperature 98.8 F 05/08/18 10:00 Pulse Rate 88 05/08/18 10:00 Respiratory Rate 18 05/08/18 10:00 Blood Pressure 160/71 05/08/18 10:00 O2 Sat by Pulse Oximetry (%) 93 L 05/07/18 21:00 PHYSICAL EXAM GENERAL: The patient is awake, alert, and fully oriented, in no acute distress. HEAD: Normal with no signs of trauma. EYES: PERRL, extraocular movements intact, sclera anicteric, conjunctiva clear. ENT: Ears normal, oropharynx clear without exudates, moist mucous membranes. NECK: Trachea midline, full range of motion, supple. LUNGS: Breath sounds equal, clear to auscultation bilaterally, no wheezes, no crackles, no accessory muscle use. HEART: Regular rate and rhythm, S1, S2 without murmur, rub or gallop. ABDOMEN: Soft, NT,ND, normoactive bowel sounds, no guarding, no rebound, no hepatosplenomegaly, no masses. EXTREMITIES: 2+ pulses, warm, well-perfused, no edema. NEUROLOGICAL: Cranial nerves II through XII grossly intact. Normal speech, gait not observed. PSYCH: Normal mood, normal affect. SKIN: Warm, dry, normal turgor, no rashes or lesions noted. LABS Laboratory Results - last 24 hr 05/08/18 05/08/18 06:00 06:00 WBC 12.6 H RBC 5.36 H Hgb 10.6 L Hct 32.5 MCV 60.6 L MCH 19.8 L MCHC 32.7 RDW 16.4 H Plt Count 395 D MPV 9.7 D Sodium 141 Potassium 3.8 Chloride 110 H Carbon Dioxide 23 Anion Gap 9 BUN 14 Creatinine 1.2 Creat Clearance w eGFR 44.04 Random Glucose 100 Calcium 8.3 L CBCD WBC 12.6 K/mm3 (4.0-10.0) H 05/08/18 06:00 RBC 5.36 M/mm3 (3.60-5.2) H 05/08/18 06:00 Hgb 10.6 GM/dL (10.7-15.3) L 05/08/18 06:00 Hct 32.5 % (32.4-45.2) 05/08/18 06:00 MCV 60.6 fl (80-96) L 05/08/18 06:00 MCHC 32.7 g/dl (32.0-36.0) 05/08/18 06:00 RDW 16.4 % (11.6-15.6) H 05/08/18 06:00 Plt Count 395 K/MM3 (134-434) D 05/08/18 06:00 MPV 9.7 fl (7.5-11.1) D 05/08/18 06:00 CMP Sodium 141 mmol/L (136-145) 05/08/18 06:00 Potassium 3.8 mmol/L (3.5-5.1) 05/08/18 06:00 Chloride 110 mmol/L (98-107) H 05/08/18 06:00 Carbon Dioxide 23 mmol/L (21-32) 05/08/18 06:00 Anion Gap 9 MMOL/L (8-16) 05/08/18 06:00 BUN 14 mg/dL (7-18) 05/08/18 06:00 Creatinine 1.2 mg/dL (0.55-1.3) 05/08/18 06:00 Creat Clearance w eGFR 44.04 (>60) 05/08/18 06:00 Random Glucose 100 mg/dL (74-106) 05/08/18 06:00 Calcium 8.3 mg/dL (8.5-10.1) L 05/08/18 06:00 Total Bilirubin 0.6 mg/dL (0.2-1) 04/26/18 09:50 AST 21 U/L (15-37) 04/26/18 09:50 ALT 38 U/L (13-61) 04/26/18 09:50 Alkaline Phosphatase 114 U/L (45-117) 04/26/18 09:50 Total Protein 5.9 g/dl (6.4-8.2) L 04/26/18 09:50 Albumin 2.8 g/dl (3.4-5.0) L 04/26/18 09:50 Current Medications Generic Name Dose Route Start Last Admin Trade Name Freq PRN Reason Stop Dose Admin Acetaminophen 650 mg 02/08/19 18:17 Tylenol - PO Q6H PRN FEVER Cholestyramine Resin 4 gm 05/07/18 17:30 05/08/18 10:30 Questran Light Packet - PO 4 gm DAILY JORGE Administration Heparin Sodium (Porcine) 5,000 unit 04/30/18 22:00 05/08/18 05:53 Heparin - SQ Not Given TID JORGE Metronidazole 500 mg in 100 mls @ 100 mls/hr 05/01/18 02:00 05/08/18 10:28 Flagyl 500mg Premixed Ivpb - IVPB 100 mls/hr Q8H-IV JORGE Administration Melatonin 5 mg 04/30/18 18:17 05/07/18 21:46 Melatonin PO 5 mg HS PRN Administration INSOMNIA Metoprolol Succinate 50 mg 05/01/18 10:00 05/08/18 10:30 Toprol Xl - PO 50 mg DAILY JORGE Administration Mupirocin 1 applic 05/01/18 10:00 05/08/18 10:30 Bactroban 2% Ointment - TP 1 applic DAILY JORGE Administration Sodium Chloride 2 spray 05/01/18 06:51 05/01/18 09:07 [place]al [place] - NS 2 spray BID PRN Administration NASAL CONGESTION Vancomycin HCl 250 mg 05/01/18 00:00 05/08/18 11:26 Vancomycin Oral Solution PO 250 mg Q6HPO JORGE Administration Zolpidem Tartrate 5 mg 04/30/18 18:17 Ambien - PO HS PRN INSOMNIA Home Medications Medication Instructions Recorded Furosemide [Lasix -] 20 mg PO DAILY 02/21/13 Zinc Sulfate [Orazinc -] 220 mg PO DAILY #0 capsule 02/24/13 Multivitamin [Multivitamins] 1 cap PO DAILY 08/02/13 Ascorbic Acid [Vitamin C -] 500 mg PO DAILY 04/25/18 Metoprolol Succinate 50 mg PO DAILY 04/29/18 Cholestyramine/Aspartame [Questran 4 gm PO DAILY #60 packet 05/08/18 Light Packet -] Fidaxomicin [Dificid (Nf) -] 200 mg PO BID #20 tablet 05/08/18 Vancomycin Oral Solution 250 mg PO Q6HPO #40 ml 05/08/18 HOSPITAL COURSE: Date of Admission:04/25/18 Date of Discharge: 05/08/18 Last echo (2014): mild TR, mild mitral annular calcification, RV systolic pressure elevated at 50-60mmHg Patient is a 72 year old female with PMHx of HTN, Diverticulosis/ Diverticulitis s/p partial colectomy, Rectovaginal fistula s/p resection, s/p ileostomy s/p reversal, hx of C. diff infection (2014) and CHF, presented with recurrent diarrhea after stopping the oral vancomycin a week ago. # C-diff colitis : continue Po Vancomycin 250mg q6h, s/p IV Flagyl . discontinued today , GI Dr. mccall (GI), ID (Dr. Carreon) consulted. Patient is being discharged home on vancomycin and dificid 200mg po bid x 10 days, as per dr. Mccall's request. Continue questeran daily to continue as per GI. s/p flex sig with pseudomembranes, back on po vancomycin and iv flagyl. Fidaxomin upon discharge as per perirectal adenopathy as well noted on CT scan. possible discharge in am. # Acute Leukocytosis due to Cdiff. colitis: will continue to monitor. possible discharge the patient in am. # Hx of IBS: on viberzi since 2016, on hold as per GI. #Hypertension: controlled, continue home medications # Hypokalemia will replete. #CHF stable now, cont. toprol discharge patient home. Minutes to complete discharge: 42 Discharge Summary Reason For Visit: VREF / DIARRHEA Current Active Problems MARIANN (acute kidney injury) (Acute) Diarrhea (Acute) Infectious diarrhea (Acute) Condition: Stable - Instructions Diet, Activity, Other Instructions: You are admitted for diarrhea for recurrence of C-diff.colitis As per take Vancomycin 250mg po 4x per day ordered Fidaxomicin=Dificid 200mg orslly 2x per day for 10days please follow the instructions of Continue taking cholestyramine 4gm orally daily. Additional info Call 911 or go to the ED if with any worsening Referrals: Subha Cisse MD [Primary Care Provider] - 1 Week Vanessa Carreon MD [Staff Physician] - Chandrakant Mccall MD [Staff Physician] - 1 Week Disposition: HOME - Home Medications Comprehensive Discharge Medication List: Ambulatory Orders Furosemide [Lasix -] 20 mg PO DAILY 12/02/13 Zinc Sulfate [Orazinc -] 220 mg PO DAILY #0 capsule 02/24/13 Multivitamin [Multivitamins] 1 cap PO DAILY 08/02/13 Ascorbic Acid [Vitamin C -] 500 mg PO DAILY 04/25/18 Metoprolol Succinate 50 mg PO DAILY 04/29/18 Cholestyramine/Aspartame [Questran Light Packet -] 4 gm PO DAILY #60 packet Fidaxomicin [Dificid (Nf) -] 200 mg PO BID #20 tablet 05/08/18 Vancomycin Oral Solution 250 mg PO Q6HPO #40 ml 05/08/18 This patient is new to me today: No Emergency Visit: Yes ED Registration Date: 04/25/18 Care time: The patient presented to the Emergency Department on the above date and was hospitalized for further evaluation of their emergent condition. Critical Care patient: No - Discharge Referral Referred to [facility] Med P.C.: No
== END 2018-05-08 14:19 | disposition home health service (06) | DRG 372 ==
LOC: JER 11:20 → JERBED 14:21 → OBSVTOIN 15:33 → J8W 17:00
PROVIDERS: ADMIT Internal Medicine; ATTEND Internal Medicine
PROC: 0DBN8ZX Excision of Sigmoid Colon, Via Natural or Artificial Opening Endoscopic, Diagnostic (ICD-10-PCS; principal; 2018-04-30 14:45)
DX: A04.71 Enterocolitis due to Clostridium difficile, recurrent (principal); I50.30 Unspecified diastolic (congestive) heart failure; K92.1 Melena; N17.9 Acute kidney failure, unspecified; K57.90 Diverticulosis of intestine, part unspecified, without perforation or abscess without bleeding; I10 Essential (primary) hypertension; K59.9 Functional intestinal disorder, unspecified; D72.829 Elevated white blood cell count, unspecified; E87.6 Hypokalemia
CPT/HCPCS: 36415; 71046-TC-FY; 74018-TC-FY; 74019-TC-FY; 74176-TC; 80048; 80053; 82607; 82728; 82746; 82803; 83540; 83550; 83605; 83735; 84100; 84132; 85025; 85027; 85651; 86140; 87040; 87045; 87046; 87081; 87177; 87186; 87209; 87324; 87328; 87329; 87425; 87449; 87798; 88305-TC; 93005; 93010; 94760; 97116-GP; 97161-GP; 99283-25; G0378; J1644; J7030

== ENCOUNTER 2018-05-23 10:31 | Inpatient (IN) | payer OTHER, BC ==
[2018-05-23 10:44] VITALS: BMI 27.4
--- NOTE | 2018-05-23 11:26 | PDOC ---
History of Present Illness <Chica Montilla - Last Filed: 05/23/18 15:27> - General History Source: Patient Exam Limitations: No Limitations - History of Present Illness Initial Comments: 72 yo F history of HTN presents with bloody diarrhea for past 3 days. She states that she was recently discharged from the hospital after treatment for VRE/CDiff (pseudomembranes found on flex sig). She recently finished her PO vancomycin. She states that she has had diarrhea many times, but this is the first time that it was bloody. She denies abdominal pain, but feels bloated and distended. Denies vomiting, fever. <Pinky Nichols - Last Filed: 05/23/18 16:29> - General Chief Complaint: Rectal Bleed Stated Complaint: RECTAL BLEEDING Time Seen by Provider: 05/23/18 11:02 Past History <Chica Montilla - Last Filed: 05/23/18 15:27> - Past Medical History Anemia: Yes Cardiac Disorders: Yes (MVP) COPD: No CHF: Yes GI Disorders: Yes (diverticulitis, c diff.) HTN: Yes - Surgical History Abdominal Surgery: Yes (partial colectomy, rectovaginal fistula w/ resection, ileostomy) Appendectomy: Yes (colonoscopy/egd) - Suicide/Smoking/Psychosocial Hx Smoking Status: No Smoking History: Never smoked Have you smoked in the past 12 months: No Number of Cigarettes Smoked Daily: 0 Information on smoking cessation initiated: No Hx Alcohol Use: No Drug/Substance Use Hx: No Substance Use Type: None Hx Substance Use Treatment: No <Pinky Nichols - Last Filed: 05/23/18 16:29> - Past Medical History Allergies/Adverse Reactions: Allergies Allergy/AdvReac Type Severity Reaction Status Date / Time Penicillins Allergy Intermediate Rash Verified 04/25/18 11:32 Sulfa (Sulfonamide Allergy Intermediate Rash Verified 04/25/18 11:32 Antibiotics) tetracycline [Tetracycline] Allergy Verified 04/25/18 11:32 Home Medications: Ambulatory Orders Furosemide [Lasix -] 20 mg PO DAILY 02/21/13 Zinc Sulfate [Orazinc -] 220 mg PO DAILY #0 capsule 02/24/13 Multivitamin [Multivitamins] 1 cap PO DAILY 08/02/13 Ascorbic Acid [Vitamin C -] 500 mg PO DAILY 04/25/18 Metoprolol Succinate 50 mg PO DAILY 04/29/18 Cholestyramine/Aspartame [Questran Light Packet -] 4 gm PO DAILY #60 packet Fidaxomicin [Dificid (Nf) -] 200 mg PO BID #20 tablet 05/08/18 Vancomycin Oral Solution 250 mg PO Q6HPO #40 ml 05/08/18 Review of Systems - Review of Systems Able to Perform ROS?: Yes Comments:: GENERAL/CONSTITUTIONAL: No fever or chills. No weakness. HEAD, EYES, EARS, NOSE AND THROAT: No change in vision. No ear pain or discharge. No sore throat. CARDIOVASCULAR: No chest pain or shortness of breath. RESPIRATORY: No cough, wheezing, or hemoptysis. GASTROINTESTINAL: No nausea, vomiting, or constipation. +Bloody diarrhea. GENITOURINARY: No dysuria, frequency, or change in urination. MUSCULOSKELETAL: No joint or muscle swelling or pain. No neck or back pain. SKIN: No rash. NEUROLOGIC: No headache, vertigo, loss of consciousness, or change in strength/ sensation. ENDOCRINE: No increased thirst. No abnormal weight change. HEMATOLOGIC/LYMPHATIC: No anemia, easy bleeding, or history of blood clots. ALLERGIC/IMMUNOLOGIC: No hives or skin allergy. <Pinky Nichols - Last Filed: 05/23/18 16:29> *Physical Exam - Vital Signs Last Vital Signs Temp Pulse Resp BP Pulse Ox 98.3 F 109 H 18 138/77 100 05/23/18 10:41 05/23/18 13:19 05/23/18 13:19 05/23/18 13:19 05/23/18 13:19 <Chica Montilla - Last Filed: 05/23/18 15:27> - Vital Signs Last Vital Signs Temp Pulse Resp BP Pulse Ox 98.3 F 120 H 20 118/73 97 05/23/18 10:41 05/23/18 10:41 05/23/18 10:41 05/23/18 10:41 05/23/18 10:41 - Physical Exam Comments: GENERAL: Awake, alert, and fully oriented, in no acute distress. Mild pallor. HEAD: No signs of trauma EYES: PERRLA, EOMI, sclera anicteric, conjunctiva clear ENT: Auricles normal inspection, hearing grossly normal, nares patent, oropharynx clear without exudates. Dry mucosa NECK: Normal ROM, supple, no lymphadenopathy, JVD, or masses LUNGS: Breath sounds equal, clear to auscultation bilaterally. No wheezes, and no crackles HEART: Regular rate and rhythm, normal S1 and S2, no murmurs, rubs or gallops ABDOMEN: Soft, nontender, hyperactive bowel sounds. +Distension, tympanitic to percussion. No guarding, no rebound. No masses EXTREMITIES: Normal range of motion, no edema. No clubbing or cyanosis. No cords, erythema, or tenderness NEUROLOGICAL: Cranial nerves II through XII grossly intact. Normal speech, normal gait. Motor and sensation intact SKIN: Warm, Dry, normal turgor, no rashes or lesions noted. RECTAL: +BRBPR. <Pinky Nichols - Last Filed: 05/23/18 16:29> Moderate Sedation - Procedure Monitoring Vital Signs: Procedure Monitoring Vital Signs Temperature 98.3 F 05/23/18 10:41 Pulse Rate 109 H 05/23/18 13:19 Respiratory Rate 18 05/23/18 13:19 Blood Pressure 138/77 05/23/18 13:19 O2 Sat by Pulse Oximetry (%) 100 05/23/18 13:19 <Chica Montilla - Last Filed: 05/23/18 15:27> - Procedure Monitoring Vital Signs: Procedure Monitoring Vital Signs Temperature 98.3 F 05/23/18 10:41 Pulse Rate 120 H 05/23/18 10:41 Respiratory Rate 20 05/23/18 10:41 Blood Pressure 118/73 05/23/18 10:41 O2 Sat by Pulse Oximetry (%) 97 05/23/18 10:41 <Pinky Nichols - Last Filed: 05/23/18 16:29> ED Treatment Course - LABORATORY CBC & Chemistry Diagram: 05/23/18 11:40 05/23/18 11:40 - ADDITIONAL ORDERS Additional order review: Laboratory Results 05/23/18 05/23/18 05/23/18 12:23 11:40 11:40 PT with INR 14.00 H INR 1.18 H Sodium Potassium Chloride Carbon Dioxide Anion Gap BUN Creatinine Creat Clearance w eGFR Random Glucose Lactic Acid 2.0 Calcium Total Bilirubin AST ALT Alkaline Phosphatase Total Protein Albumin Stool Occult Blood Positive Blood Type Antibody Screen 05/23/18 05/23/18 11:40 11:30 PT with INR INR Sodium 140 Potassium 4.2 Chloride 106 Carbon Dioxide 26 Anion Gap 7 L BUN 16 Creatinine 1.5 H Creat Clearance w eGFR 34.04 Random Glucose 102 Lactic Acid Calcium 9.2 Total Bilirubin 0.4 AST 17 ALT 24 Alkaline Phosphatase 131 H Total Protein 7.4 Albumin 3.6 Stool Occult Blood Blood Type O POSITIVE Antibody Screen Negative 05/23/18 11:40 RBC 5.49 H MCV 62.4 L MCHC 32.5 RDW 18.5 H MPV 9.2 Neutrophils % 77.3 Lymphocytes % 11.2 D Monocytes % 9.5 Eosinophils % 1.5 Basophils % 0.5 - Medications Given in the ED: ED Medications Discontinued Medications Generic Name Dose Route Start Last Admin Trade Name Freq PRN Reason Stop Dose Admin Sodium Chloride 500 mls @ 500 mls/hr 05/23/18 11:29 05/23/18 11:45 Normal Saline - IV 05/23/18 12:28 500 mls/hr ASDIR STA Administration Sodium Chloride 500 mls @ 500 mls/hr 05/23/18 13:32 05/23/18 13:35 Normal Saline - IV 05/23/18 14:31 500 mls/hr ASDIR STA Administration Ondansetron HCl 4 mg 05/23/18 12:21 05/23/18 12:34 Zofran Injection IVPUSH 05/23/18 12:22 4 mg ONCE ONE Administration <Chica Montilla - Last Filed: 05/23/18 15:27> - LABORATORY CBC & Chemistry Diagram: 05/23/18 11:40 05/23/18 11:40 <Pinky Nichols - Last Filed: 05/23/18 16:29> Medical Decision Making - Medical Decision Making 05/23/18 14:[address] Carreon, awaiting call back. 05/23/18 15:[address] Carreon. 05/23/18 15:[address] Navarro, awaiting call back. <Chica Montilla - Last Filed: 05/23/18 15:27> - Medical Decision Making 05/23/18 12:21 Called to bedside, patient felt like she had a BM, also felt nauseous. Noted to be slightly pale (poss vasovagal, as she was emotionally distressed). She had a few drops of blood in her Depends, but no large BM or bleed. Reassured her, gave zofran. Awaiting labs so that I can send to CT to evaluate further. 05/23/18 15:35 Case d/w Dr. Vásquez, covering Dr. Navarro. Will evaluate. I will page hospitalist for admission. 05/23/18 16:28 Case d/w Dr. Josh Hurtado, will admit to med/surg. <Pinky Nichols - Last Filed: 05/23/18 16:29> *DC/Admit/Observation/Transfer - Attestations Scribe Attestion: 05/23/18 14:59 Documentation prepared by Chica Montilla, acting as front office medical assistant for Pinky Nichols MD. <Chica Montilla - Last Filed: 05/23/18 15:27> - Discharge Dispostion Decision to Admit order: Yes <Pinky Nichols - Last Filed: 05/23/18 16:29> Diagnosis at time of Disposition: Bloody diarrhea - Discharge Dispostion Condition at time of disposition: Guarded - Referrals Referrals: Subha Cisse MD [Primary Care Provider] -
[2018-05-23] MEDS ORDERED: SODIUM CHLORIDE 500 ML IV STA ×2 (11:29→13:32)
[2018-05-23 11:54] LABS: BASO % 0.5 % (0-2.0); EOS % 1.5 % (0-4.5); HEMATOCRIT 34.3 % (32.4-45.2); HEMOGLOBIN 11.1 GM/dL (10.7-15.3); LYMPH % 11.2 % (8-40); MCH 20.3 pg (25.7-33.7); MCHC 32.5 g/dl (32.0-36.0); MEAN CELL VOLUME 62.4 fl (80-96); MEAN PLT VOLUME 9.2 fl (7.5-11.1); MONO % 9.5 % (3.8-10.2); NEUT % 77.3 % (42.8-82.8); PLATELET COUNT 311 K/MM3 (134-434); RBC 5.49 M/mm3 (3.60-5.2); RDW 18.5 % (11.6-15.6); WHITE BLOOD COUNT 14.2 K/mm3 (4.0-10.0)
[2018-05-23 12:16] LABS: ALBUMIN 3.6 g/dl (3.4-5.0); ALK PHOS 131 U/L (45-117); ANION GAP 7 MMOL/L (8-16); BILIRUBIN,TOTAL 0.4 mg/dL (0.2-1); BLOOD UREA NITROGEN 16 mg/dL (7-18); CALCIUM 9.2 mg/dL (8.5-10.1); CHLORIDE 106 mmol/L (98-107); CO2 26 mmol/L (21-32); CREATININE 1.5 mg/dL (0.55-1.3); GLUCOSE,RANDOM 102 mg/dL (74-106); POTASSIUM 4.2 mmol/L (3.5-5.1); SGOT/AST 17 U/L (15-37); SGPT/ALT 24 U/L (13-61); SODIUM 140 mmol/L (136-145); TOT PROT 7.4 g/dl (6.4-8.2)
[2018-05-23] MEDS ORDERED: ONDANSETRON 4 MG/2 ML VIAL IVPUSH ONE (12:21)
[2018-05-23 12:25] LABS: INR 1.18 (0.83-1.09)
[2018-05-23] MEDS ORDERED: ONDANSETRON 4 MG/2 ML VIAL ONE (12:34)
[2018-05-23 16:22] LABS: ANISOCYTOSIS 1+; MACROCYTOSIS 0; OVALOCYTE 1+; PLATELET ESTIMATE NORMAL
--- NOTE | 2018-05-23 16:35 | HP ---
CHIEF COMPLAINT: PCP: Dr Cisse HISTORY OF PRESENT ILLNESS: Pt is a pleasant 72 y/o lady with a significant HTN, Diverticulosis/ Diverticulitis s/p partial colectomy, Rectovaginal fistula s/p resection, s/p ileostomy s/p reversal recently discharged 05/08/18 for VRE/C-Diff infection [facility] c/o of blood diarrhea for 3 days. Pt endorses that in February of 2018, she was prescribed Levaquin by her PCP for hidradenitis suppurativa infection. Pt states that shortly after begging the antibiotic, she developed watery loose diarrhea. Pt then visited her Space Control Supervisor who prescribed her PO Vancomycin for 10 days. After Diarrhea did not resolve, pt presented to [facility] where she was treated with Flagyl and PO Vanco. Pt on that admission was discharged with PO Vanco and Fidoxamycin. Today pt endorses she has been having watery, loose, bloody diarrhea for the past 3 days. States she stropped taking her Vancomycin over the weekend. Endorses a 12 pound weight loss since February. Denies chest pain, shortness of breath, nausea/vomiting or fever. Social Hx: Denies Smoking or alcohol consumption. Family Hx: Mother-Ovarian Cancer, Father Small intestine Tumor?, Brother Pancreatic cancer, other Brother Lung cancer Past Surgical Hx: Hysterectomy, Intestine perforation s/p colostomy, ileostomy 2 /2 rectovaginal fistula ER course was notable for: (1) WBC 14.2 (2) Stool occult + (3) Allergies Penicillins Allergy (Intermediate, Verified 04/25/18 11:32) Rash Sulfa (Sulfonamide Antibiotics) Allergy (Intermediate, Verified 04/25/18 11:32) Rash tetracycline [Tetracycline] Allergy (Verified 04/25/18 11:32) HOME MEDICATIONS: Home Medications Medication Instructions Recorded Furosemide [Lasix -] 20 mg PO DAILY 02/21/13 Zinc Sulfate [Orazinc -] 220 mg PO DAILY #0 capsule 02/24/13 Multivitamin [Multivitamins] 1 cap PO DAILY 08/02/13 Ascorbic Acid [Vitamin C -] 500 mg PO DAILY 04/25/18 Metoprolol Succinate 50 mg PO DAILY 04/29/18 Cholestyramine/Aspartame [Questran 4 gm PO DAILY #60 packet 05/08/18 Light Packet -] Fidaxomicin [Dificid (Nf) -] 200 mg PO BID #20 tablet 05/08/18 Vancomycin Oral Solution 250 mg PO Q6HPO #40 ml 05/08/18 REVIEW OF SYSTEMS CONSTITUTIONAL: PRESENT generalized weakness, malaise, loss of appetite, weight change HEENT: Absent: rhinorrhea, nasal congestion, throat pain, throat swelling, difficulty swallowing, mouth swelling, ear pain, eye pain, visual changes CARDIOVASCULAR: Absent: chest pain, syncope, palpitations, irregular heart rate, lightheadedness , peripheral edema RESPIRATORY: Absent: cough, shortness of breath, dyspnea with exertion, orthopnea, wheezing, stridor, hemoptysis GASTROINTESTINAL: PRESENT: abdominal pain, diarrhea GENITOURINARY: Absent: dysuria, frequency, urgency, hesitancy, hematuria, flank pain, genital pain MUSCULOSKELETAL: Absent: myalgia, arthralgia, joint swelling, back pain, neck pain SKIN: Absent: rash, itching, pallor HEMATOLOGIC/IMMUNOLOGIC: Absent: easy bleeding, easy bruising, lymphadenopathy, frequent infections ENDOCRINE: Absent: unexplained weight gain, unexplained weight loss, heat intolerance, cold intolerance NEUROLOGIC: Absent: headache, focal weakness or paresthesias, dizziness, unsteady gait, seizure, mental status changes, bladder or bowel incontinence PSYCHIATRIC: Absent: anxiety, depression, suicidal or homicidal ideation, hallucinations. PHYSICAL EXAMINATION Vital Signs - 24 hr 05/23/18 05/23/18 10:41 13:19 Temperature 98.3 F Pulse Rate 120 H Pulse Rate [ 109 H Apical] Respiratory 20 18 Rate Blood Pressure 118/73 Blood Pressure 138/77 [Left Arm] O2 Sat by Pulse 97 100 Oximetry (%) GENERAL: nad aaox3 HEAD: Normal with no signs of trauma. EYES: eomi sclera clear EARS, NOSE, THROAT: mmm NECK: supple LUNGS: ctab HEART: rrr, no mrg nl s1s2 ABDOMEN: no guarding or rigidity. bs audible. Nontender to deep palpation. MUSCULOSKELETAL: No CCE LOWER EXTREMITIES: 1+ edema NEUROLOGICAL: Cranial nerves II-XII intact. Normal speech. Normal gait. PSYCHIATRIC: Cooperative. Good eye contact. Appropriate mood and affect. RECTAL: Rectal performed by myself. Loose, watery stool surrounding rectum. No Win blood visualized. No hemorrhoids appreciated. Laboratory Results - last 24 hr 05/23/18 05/23/18 05/23/18 11:30 11:40 11:40 WBC 14.2 H RBC 5.49 H Hgb 11.1 Hct 34.3 MCV 62.4 L MCH 20.3 L MCHC 32.5 RDW 18.5 H Plt Count 311 D MPV 9.2 Absolute Neuts (auto) 11.0 H Neutrophils % 77.3 Lymphocytes % 11.2 D Monocytes % 9.5 Eosinophils % 1.5 Basophils % 0.5 Nucleated RBC % 0 Hypochromia 0 Platelet Estimate Normal Polychromasia 1+ Poikilocytosis 1+ Anisocytosis 1+ Microcytosis 1+ Macrocytosis 0 Ovalocytes 1+ Luke Cells 1+ Fragmented RBCs 1+ PT with INR INR Sodium 140 Potassium 4.2 Chloride 106 Carbon Dioxide 26 Anion Gap 7 L BUN 16 Creatinine 1.5 H Creat Clearance w eGFR 34.04 Random Glucose 102 Lactic Acid Calcium 9.2 Total Bilirubin 0.4 AST 17 ALT 24 Alkaline Phosphatase 131 H Total Protein 7.4 Albumin 3.6 Stool Occult Blood Blood Type O POSITIVE Antibody Screen Negative 05/23/18 05/23/18 05/23/18 11:40 11:40 12:23 WBC RBC Hgb Hct MCV MCH MCHC RDW Plt Count MPV Absolute Neuts (auto) Neutrophils % Lymphocytes % Monocytes % Eosinophils % Basophils % Nucleated RBC % Hypochromia Platelet Estimate Polychromasia Poikilocytosis Anisocytosis Microcytosis Macrocytosis Ovalocytes Luke Cells Fragmented RBCs PT with INR 14.00 H INR 1.18 H Sodium Potassium Chloride Carbon Dioxide Anion Gap BUN Creatinine Creat Clearance w eGFR Random Glucose Lactic Acid 2.0 Calcium Total Bilirubin AST ALT Alkaline Phosphatase Total Protein Albumin Stool Occult Blood Positive Blood Type Antibody Screen ASSESSMENT/PLAN: Pt is a pleasant 72 y/o lady with a significant HTN, Diverticulosis/ Diverticulitis s/p partial colectomy, Rectovaginal fistula s/p resection, s/p ileostomy s/p reversal recently discharged 05/08/18 for VRE/C-Diff infection presented to [facility] c/o of blood diarrhea for 3 days. #C. Diff Colitis PCR, Toxin and Antigen Sent Stool Culture for ova and parasites -250 mg Vanco Q6H -Flagyl 500 mg Q8H -Restart pt's own medication, Fidoxomycin 200 po BID -GI on board #HTN Metoprolol Succinate 50 PO Daily Will hold Lasix in light of dehydration/Diarhea #FEN #LR@100cc/hr Monitor Electrolytes NPO #DVT ppx: SCD's #Dispo: Tele Visit type - Emergency Visit Emergency Visit: Yes ED Registration Date: 05/23/18 Care time: The patient presented to the Emergency Department on the above date and was hospitalized for further evaluation of their emergent condition. - New Patient This patient is new to me today: Yes Date on this admission: 05/23/18 - Critical Care Critical Care patient: No
--- NOTE | 2018-05-23 17:35 | PN ---
Teaching Attending Note Name of Resident: Josh Hurtado ATTENDING PHYSICIAN STATEMENT I saw and evaluated the patient. I reviewed the resident's note and discussed the case with the resident. I agree with the resident's findings and plan as documented. SUBJECTIVE: Patient is a 72yo female with PMHx of HTN, Diverticulosis/Diverticulitis s/p partial colectomy, Rectovaginal fistula s/p resection, s/p ileostomy s/p reversal recently discharged from the hospital on 05/08/18 with C-Diff infection presented to ED.with bloody diarrhea x 3 days. As per patient stopped taking Vancomycin for 2 days giving herself a break. OBJECTIVE: Vital Signs Temperature 98.3 F 05/23/18 10:41 Pulse Rate 109 H 05/23/18 13:19 Respiratory Rate 18 05/23/18 13:19 Blood Pressure 138/77 05/23/18 13:19 O2 Sat by Pulse Oximetry (%) 100 05/23/18 13:19 GENERAL: Awake, alert, and fully oriented, in no acute distress. HEAD: Normal with no signs of trauma. EYES: Pupils equal, round and reactive to light, extraocular movements intact, sclera anicteric, conjunctiva clear. EARS, NOSE, THROAT: Ears normal, oropharynx clear without exudates. Moist mucous membranes. NECK: Normal range of motion, supple without lymphadenopathy, JVD, or masses. LUNGS: Breath sounds equal, clear to auscultation bilaterally. No wheezes, and no crackles. No accessory muscle use. HEART: tachycardic , normal S1 and S2 without murmur, rub or gallop. ABDOMEN: Soft, nontender, not distended, normoactive bowel sounds, no guarding, no rebound, no masses. No hepatomegaly or splenomegaly. EXTREMITIES: 2+ pulses, warm, well-perfused. No calf tenderness. No peripheral edema. NEUROLOGICAL: Cranial nerves II-XII intact. Normal speech. PSYCHIATRIC: Cooperative. Good eye contact. Appropriate mood and affect. SKIN: Warm, dry, normal turgor, no rashes or lesions noted, normal capillary refill. CBCD WBC 14.2 K/mm3 (4.0-10.0) H 05/23/18 11:40 RBC 5.49 M/mm3 (3.60-5.2) H 05/23/18 11:40 Hgb 11.1 GM/dL (10.7-15.3) 05/23/18 11:40 Hct 34.3 % (32.4-45.2) 05/23/18 11:40 MCV 62.4 fl (80-96) L 05/23/18 11:40 MCHC 32.5 g/dl (32.0-36.0) 05/23/18 11:40 RDW 18.5 % (11.6-15.6) H 05/23/18 11:40 Plt Count 311 K/MM3 (134-434) D 05/23/18 11:40 MPV 9.2 fl (7.5-11.1) 05/23/18 11:40 CMP Sodium 140 mmol/L (136-145) 05/23/18 11:40 Potassium 4.2 mmol/L (3.5-5.1) 05/23/18 11:40 Chloride 106 mmol/L (98-107) 05/23/18 11:40 Carbon Dioxide 26 mmol/L (21-32) 05/23/18 11:40 Anion Gap 7 MMOL/L (8-16) L 05/23/18 11:40 BUN 16 mg/dL (7-18) 05/23/18 11:40 Creatinine 1.5 mg/dL (0.55-1.3) H 05/23/18 11:40 Creat Clearance w eGFR 34.04 (>60) 05/23/18 11:40 Random Glucose 102 mg/dL (74-106) 05/23/18 11:40 Calcium 9.2 mg/dL (8.5-10.1) 05/23/18 11:40 Total Bilirubin 0.4 mg/dL (0.2-1) 05/23/18 11:40 AST 17 U/L (15-37) 05/23/18 11:40 ALT 24 U/L (13-61) 05/23/18 11:40 Alkaline Phosphatase 131 U/L (45-117) H 05/23/18 11:40 Total Protein 7.4 g/dl (6.4-8.2) 05/23/18 11:40 Albumin 3.6 g/dl (3.4-5.0) 05/23/18 11:40 Home Medications Medication Instructions Recorded Furosemide [Lasix -] 20 mg PO DAILY 02/21/13 Zinc Sulfate [Orazinc -] 220 mg PO DAILY #0 capsule 02/24/13 Multivitamin [Multivitamins] 1 cap PO DAILY 08/02/13 Ascorbic Acid [Vitamin C -] 500 mg PO DAILY 04/25/18 Metoprolol Succinate 50 mg PO DAILY 04/29/18 Cholestyramine/Aspartame [Questran 4 gm PO DAILY #60 packet 05/08/18 Light Packet -] Fidaxomicin [Dificid (Nf) -] 200 mg PO BID #20 tablet 05/08/18 Vancomycin Oral Solution 250 mg PO Q6HPO #40 ml 05/08/18 Current Medications Generic Name Dose Route Start Last Admin Trade Name Freq PRN Reason Stop Dose Admin Acetaminophen 650 mg 05/23/18 20:29 Tylenol - PO Q6H PRN PAIN SCALE 1-5 OR FEVER Cholestyramine Resin 4 gm 05/23/18 22:00 05/23/18 21:08 Questran Light Packet - PO 4 gm BID JORGE Administration Lactated Ringer's 1,000 ml in 1,000 mls @ 100 mls/hr 05/23/18 18:00 05/23/18 18:11 Lactated Ringers Solution IV 05/25/18 03:59 100 mls/hr ASDIR JORGE Administration Metronidazole 500 mg in 100 mls @ 100 mls/hr 05/23/18 18:00 05/23/18 18:46 Flagyl 500mg Premixed Ivpb - IVPB 100 mls/hr Q8H-IV JORGE Administration Metoprolol Succinate 50 mg 05/24/18 10:00 Toprol Xl - PO DAILY JORGE Non-Formulary Medication 200 mg 05/23/18 22:00 Fidaxomicin PO BID JORGE Vancomycin HCl 250 mg 05/23/18 18:00 05/23/18 18:46 Vancomycin Oral Solution PO 250 mg Q6HPO JORGE Administration ASSESSMENT AND PLAN: Patient is a 72yo female with PMHx of HTN, Diverticulosis/Diverticulitis s/p partial colectomy, Rectovaginal fistula s/p resection, s/p ileostomy s/p reversal recently discharged from the hospital on 05/08/18 with C-Diff colitis presented to ED.with bloody diarrhea x 3 days. As per patient stopped taking Vancomycin for 2 days prior giving herself a break. #Acute over chronic Diarrhea with hx of C-diff colitis on PO vancomycin/IV Flagyl and dificid 200mg po bid, patient may use it from home, ID consult. STool culture, ova and parasite, stool for cdiff antigen and toxin, cdiff pcr. ID on the case, GI consulted as well. #ARF on IVF LR continue # Acute Bloody Diarrhea ; On[place] stool culture # Hx of IBS: on viberzi since 2017, on hold as per GI. #Hx of Hypertension: controlled, continue home medications #CHF stable now, cont. home meds. DVt Px: heparin sq
[2018-05-23] MEDS: LACTATED RINGERS SOLUTION 1,000 ML/1,000 ML INFUS.BAG IV SCH (18:11)
[2018-05-23] MEDS: VANCOMYCIN 250 MG/5 ML ORAL SOLUTION PO SCH ×2 (18:26→18:46)
--- NOTE | 2018-05-23 18:37 | CON.GI ---
Consult Consult Specialty:: GI consult was dictated 05/23/18 - Past Medical History Cardio/Vascular: Yes: CHF (Chronic diastolid HF), HTN, Other (Paroxysmal SVT in setting of recent perforated diverticulitis) Gastrointestinal: Yes: Diverticulitis (hx with resection), Diverticulosis (hx) Infectious Disease: Yes: MRSA, VREF (2012), Other (Perforated Diverticulitis) - Past Surgical History Past Surgical History: Yes: Colostomy (hx of multiple washout/extensive adhesion ) - Alcohol/Substance Use Hx Alcohol Use: No History of Substance Use: reports: None - Smoking History Smoking history: Never smoked Have you smoked in the past 12 months: No Aproximately how many cigarettes per day: 0 - Social History Usual Living Arrangement: Snf ADL: Support Services ([place]) History of Recent Travel: No Home Medications - Allergies Allergies/Adverse Reactions: Allergies Allergy/AdvReac Type Severity Reaction Status Date / Time Penicillins Allergy Intermediate Rash Verified 04/25/18 11:32 Sulfa (Sulfonamide Allergy Intermediate Rash Verified 04/25/18 11:32 Antibiotics) tetracycline [Tetracycline] Allergy Verified 04/25/18 11:32 - Home Medications Home Medications: Ambulatory Orders Furosemide [Lasix -] 20 mg PO DAILY 02/21/13 Zinc Sulfate [Orazinc -] 220 mg PO DAILY #0 capsule 02/24/13 Multivitamin [Multivitamins] 1 cap PO DAILY 08/02/13 Ascorbic Acid [Vitamin C -] 500 mg PO DAILY 04/25/18 Metoprolol Succinate 50 mg PO DAILY 04/29/18 Cholestyramine/Aspartame [Questran Light Packet -] 4 gm PO DAILY #60 packet Fidaxomicin [Dificid (Nf) -] 200 mg PO BID #20 tablet 05/08/18 Vancomycin Oral Solution 250 mg PO Q6HPO #40 ml 05/08/18 Physical Exam-GI Vital Signs: Vital Signs Temperature 98.8 F 05/23/18 17:39 Pulse Rate 103 H 05/23/18 17:39 Respiratory Rate 18 05/23/18 17:39 Blood Pressure 127/70 05/23/18 17:39 O2 Sat by Pulse Oximetry (%) 96 05/23/18 17:39 Labs: CBC, BMP 05/23/18 11:40 05/23/18 11:40 INR, PTT INR 1.18 (0.83-1.09) H 05/23/18 11:40 Problem List - Problems (1) Diarrhea Code(s): R19.7 - DIARRHEA, UNSPECIFIED Qualifiers: Diarrhea type: unspecified type Qualified Code(s): R19.7 - Diarrhea, unspecified
[2018-05-23] MEDS ORDERED: CELECOXIB 100 MG CAPSULE PO ONE (20:29)
[2018-05-23] MEDS: CHOLESTYRAMINE/ASPARTAME 4 GM PACKET PO SCH (21:08)
--- NOTE | 2018-05-23 23:52 | CONS ---
DATE OF CONSULTATION: DATE OF DICTATION: 05/23/2018 HISTORY OF PRESENT ILLNESS: The patient is a 72-year-old female with a past medical history of hypertension, diverticulosis and diverticulitis, IBS, on Viberzi, also with a history of CHF and rectovaginal fistula. In 2012, she had a ruptured diverticulitis and a colostomy with reversal followed by ileostomy. She has had a total of 5 surgeries for rectovaginal fistula repair and also an episode of Clostridium difficile in 2014. She has been on Viberzi for IBS since 2016. She was recently admitted to the hospital with diarrhea, which was nonbloody at the time and treated for probable Clostridium difficile colitis with vancomycin and IV metronidazole. She now presents with complaints of bloody diarrhea for 3 days. Prior to that, she had multiple episodes of loose bowel movements. Apparently in February she was given Levaquin by her PCP for an infection. Shortly thereafter she developed the diarrhea. She just completed her course of vancomycin over the weekend and again on a previous hospitalization fairly recently she was discharged on p.o. vancomycin and fidaxomicin. She denies any associated abdominal pain, nausea, vomiting, hematemesis, or melena. She is followed by Dr. Navarro. PAST MEDICAL AND SURGICAL HISTORY: As listed in the HPI, with the addition of hysterectomy. ALLERGIES: PENICILLIN, SULFA, TETRACYCLINE. HOME MEDICATIONS: Include Lasix, zinc, multivitamin, vitamin C, metoprolol, cholestyramine, fidaxomicin, and vancomycin. SOCIAL HISTORY: Does not drink, smoke, or use drugs. FAMILY HISTORY: Noncontributory. REVIEW OF SYSTEMS: Negative, except for pertinent positives in the HPI. PHYSICAL EXAMINATION: Vital Signs: She is afebrile, blood pressure 118/73, pulse oximetry 100% on room air, pulse of 100. General: Pleasant female, in no acute distress. HEENT: Anicteric sclerae. Cardiovascular: S1, S2. Regular rate and rhythm. Lungs: Bilaterally clear to auscultation. Abdomen: Soft and nontender. Extremities: No edema. LABORATORY: White blood cell count 14.9, hemoglobin 11, hematocrit 34, MCV 62, platelet count 311. INR 1.1. Sodium 140, potassium 4.2, BUN 16, creatinine 1.5. AST 17, ALT 24, alkaline phosphatase 131. Stool for occult blood is positive. She has not had any abdominal imaging on this hospitalization. IMPRESSION: Pbowe-ia-dpernao diarrhea with associated hematochezia. These findings may be secondary to an infectious etiology considering her leukocytosis. There may be a component of ischemic colitis brought on by her infectious colitis leading to the hematochezia. She is currently hemodynamically stable. RECOMMENDATION: Clear liquid diet. Stool culture for ova, parasite, leukocytes , Clostridium difficile, PCR, stool giardia antigen. Will continue her on her vancomycin p.o. 250 mg q.6 hours. She can also be continued on metronidazole 500 mg IV q.8 hours. I would recommend an abdominal CAT scan with contrast to further evaluate. If there is substantial thickening on the CAT scan, I would recommend broadening her antibiotics unless her stool Clostridium difficile PCR were to come back positive and then she can be simply continued on vancomycin - tapered dose. Trend hemoglobin and hematocrit q.12 while hospitalized. Recommend Infectious Disease consultation. Dr. Navarro will resume care tomorrow. DO AYANNA CHAVIS/[id number] MTDD
[2018-05-24] MEDS: VANCOMYCIN 250 MG/5 ML ORAL SOLUTION PO SCH ×4 (01:09→18:32)
[2018-05-24] MEDS: LACTATED RINGERS SOLUTION 1,000 ML/1,000 ML INFUS.BAG IV SCH ×3 (05:32→16:42)
[2018-05-24] MEDS: ACETAMINOPHEN 325 MG TABLET (FP) PO PRN ×2 (05:39→22:13)
[2018-05-24 07:34] LABS: HEMATOCRIT 28.5 % (32.4-45.2); HEMOGLOBIN 9.3 GM/dL (10.7-15.3); MCH 20.3 pg (25.7-33.7); MCHC 32.7 g/dl (32.0-36.0); MEAN PLT VOLUME 9.3 fl (7.5-11.1); PLATELET COUNT 245 K/MM3 (134-434); RDW 18.3 % (11.6-15.6); WHITE BLOOD COUNT 12.5 K/mm3 (4.0-10.0)
[2018-05-24 07:51] LABS: ANION GAP 9 MMOL/L (8-16); BLOOD UREA NITROGEN 11 mg/dL (7-18); CALCIUM 8.6 mg/dL (8.5-10.1); CHLORIDE 109 mmol/L (98-107); CO2 23 mmol/L (21-32); CREATININE 1.3 mg/dL (0.55-1.3); GLUCOSE,RANDOM 96 mg/dL (74-106); MAGNESIUM 1.9 mg/dL (1.8-2.4); PHOSPHOROUS 3.6 mg/dL (2.5-4.9); POTASSIUM 3.9 mmol/L (3.5-5.1); SODIUM 141 mmol/L (136-145)
[2018-05-24 08:12] LABS: INR 1.22 (0.83-1.09); PROTHROMBIN TIME (PATIENT) 14.4 SEC (9.7-13.0)
[2018-05-24 08:15] LABS: ACTIVATED PTT 28.3 SECONDS (25.2-36.5)
[2018-05-24] MEDS: CHOLESTYRAMINE/ASPARTAME 4 GM PACKET PO SCH ×2 (09:44→22:12)
--- NOTE | 2018-05-24 10:16 | PN ---
Progress Note, Physician History of Present Illness: GI FOLLOW UP NOTE Patient examined and case discussed with Dr. Navarro Patient examined lying in bed. States during the night experienced 4 episodes of diarrhea, unknown if blood present. Current WBC 14.2, stool cultures and c- diff pending results. Stool OB positive, current H/H 9.3/28.5. Denies abdominal pain, nausea, or vomiting. - Current Medication List Current Medications: Active Medications Acetaminophen (Tylenol -) 650 mg PO Q6H PRN PRN Reason: PAIN SCALE 1-5 OR FEVER Last Admin: 05/24/18 05:39 Dose: 650 mg Cholestyramine Resin (Questran Light Packet -) 4 gm PO BID [facility] Last Admin: 05/24/18 09:44 Dose: 4 gm Metronidazole (Flagyl 500mg Premixed Ivpb -) 500 mg in 100 mls @ 100 mls/hr IVPB Q8H-IV [facility] Last Admin: 05/24/18 09:44 Dose: 100 mls/hr Lactated Ringer's (Lactated Ringers Solution) 1,000 ml in 1,000 mls @ 100 mls/ hr IV ASDIR [facility] Last Admin: 05/24/18 09:45 Dose: Not Given Metoprolol Succinate (Toprol Xl -) 50 mg PO DAILY [facility] Last Admin: 05/24/18 09:44 Dose: 50 mg Non-Formulary Medication (Fidaxomicin) 200 mg PO BID [facility] Vancomycin HCl (Vancomycin Oral Solution) 250 mg PO Q6HPO [facility] Last Admin: 05/24/18 05:33 Dose: 250 mg - Objective Vital Signs: Vital Signs Temperature 98.5 F 05/24/18 09:55 Pulse Rate 93 H 05/24/18 09:55 Respiratory Rate 20 05/24/18 09:55 Blood Pressure 139/68 05/24/18 09:55 O2 Sat by Pulse Oximetry (%) 97 05/24/18 01:52 Constitutional: Yes: No Distress, Calm Eyes: Yes: Conjunctiva Clear HENT: Yes: Atraumatic Cardiovascular: Yes: Regular Rate and Rhythm Respiratory: Yes: Regular, CTA Bilaterally Gastrointestinal: Yes: Normal Bowel Sounds, Soft, Other (non tender, non distended). No: WNL, Abdomen, Obese, Ascites, Distention, Hematemesis, Hemorrhoids, Hepatomegaly, Hernia, Hyperactive Bowel Sounds, Hypoactive Bowel Sounds, Melena, Palpable Mass, Pulsatile Mass, Rectal Bleeding, Splenomegaly, Tenderness, Tenderness, Epigastrium, Tenderness, Rebound, Vomiting Neurological: Yes: Alert, Oriented Labs: CBC, BMP 05/24/18 06:20 05/24/18 06:20 INR, PTT INR 1.22 (0.83-1.09) H 05/24/18 06:20 Laboratory Last Values WBC 12.5 K/mm3 (4.0-10.0) H 05/24/18 06:20 RBC 4.60 M/mm3 (3.60-5.2) 05/24/18 06:20 Hgb 9.3 GM/dL (10.7-15.3) L 05/24/18 06:20 Hct 28.5 % (32.4-45.2) L D 05/24/18 06:20 MCV 62.0 fl (80-96) L 05/24/18 06:20 MCH 20.3 pg (25.7-33.7) L 05/24/18 06:20 MCHC 32.7 g/dl (32.0-36.0) 05/24/18 06:20 RDW 18.3 % (11.6-15.6) H 05/24/18 06:20 Plt Count 245 K/MM3 (134-434) D 05/24/18 06:20 MPV 9.3 fl (7.5-11.1) 05/24/18 06:20 Absolute Neuts (auto) 11.0 K/mm3 (1.5-8.0) H 05/23/18 11:40 Neutrophils % 77.3 % (42.8-82.8) 05/23/18 11:40 Lymphocytes % 11.2 % (8-40) D 05/23/18 11:40 Monocytes % 9.5 % (3.8-10.2) 05/23/18 11:40 Eosinophils % 1.5 % (0-4.5) 05/23/18 11:40 Basophils % 0.5 % (0-2.0) 05/23/18 11:40 Nucleated RBC % 0 % (0-0) 05/23/18 11:40 Hypochromia 0 05/23/18 11:40 Platelet Estimate Normal 05/23/18 11:40 Polychromasia 1+ 03/03/19 11:40 Poikilocytosis 1+ 05/23/18 11:40 Anisocytosis 1+ 05/23/18 11:40 Microcytosis 1+ 05/23/18 11:40 Macrocytosis 0 05/23/18 11:40 Ovalocytes 1+ 05/23/18 11:40 [place] Cells 1+ 05/23/18 11:40 Fragmented RBCs 1+ 05/23/18 11:40 PT with INR 14.40 SEC (9.7-13.0) H 05/24/18 06:20 INR 1.22 (0.83-1.09) H 05/24/18 06:20 PTT (Actin FS) 28.3 SECONDS (25.2-36.5) 05/24/18 06:20 Sodium 141 mmol/L (136-145) 05/24/18 06:20 Potassium 3.9 mmol/L (3.5-5.1) 05/24/18 06:20 Chloride 109 mmol/L (98-107) H 05/24/18 06:20 Carbon Dioxide 23 mmol/L (21-32) 05/24/18 06:20 Anion Gap 9 MMOL/L (8-16) 05/24/18 06:20 BUN 11 mg/dL (7-18) 05/24/18 06:20 Creatinine 1.3 mg/dL (0.55-1.3) 05/24/18 06:20 Creat Clearance w eGFR 40.15 (>60) 05/24/18 06:20 Random Glucose 96 mg/dL (74-106) 05/24/18 06:20 Lactic Acid 2.0 mmol/L (0.4-2.0) 05/23/18 11:40 Calcium 8.6 mg/dL (8.5-10.1) 05/24/18 06:20 Phosphorus 3.6 mg/dL (2.5-4.9) 05/24/18 06:20 Magnesium 1.9 mg/dL (1.8-2.4) 05/24/18 06:20 Total Bilirubin 0.4 mg/dL (0.2-1) 05/23/18 11:40 AST 17 U/L (15-37) 05/23/18 11:40 ALT 24 U/L (13-61) 05/23/18 11:40 Alkaline Phosphatase 131 U/L (45-117) H 05/23/18 11:40 Total Protein 7.4 g/dl (6.4-8.2) 05/23/18 11:40 Albumin 3.6 g/dl (3.4-5.0) 05/23/18 11:40 Stool Occult Blood Positive (NEGATIVE) 05/23/18 12:23 Blood Type O POSITIVE 05/23/18 11:30 Antibody Screen Negative 05/23/18 11:30 <Emelina Hong - Last Filed: 05/24/18 10:11> - Current Medication List Current Medications: Active Medications Acetaminophen (Tylenol -) 650 mg PO Q6H PRN PRN Reason: PAIN SCALE 1-5 OR FEVER Last Admin: 05/24/18 05:39 Dose: 650 mg Cholestyramine Resin (Questran Light Packet -) 4 gm PO BID [facility] Last Admin: 05/24/18 09:44 Dose: 4 gm Metronidazole (Flagyl 500mg Premixed Ivpb -) 500 mg in 100 mls @ 100 mls/hr IVPB Q8H-IV [facility] Last Admin: 05/24/18 18:14 Dose: Not Given Lactated Ringer's (Lactated Ringers Solution) 1,000 ml in 1,000 mls @ 100 mls/ hr IV ASDIR [facility] Last Admin: 05/24/18 16:42 Dose: 100 mls/hr Metoprolol Succinate (Toprol Xl -) 50 mg PO DAILY [facility] Last Admin: 05/24/18 09:44 Dose: 50 mg Non-Formulary Medication (Fidaxomicin) 200 mg PO BID [facility] Last Admin: 05/24/18 11:47 Dose: 200 mg Vancomycin HCl (Vancomycin Oral Solution) 250 mg PO Q6HPO [facility] Last Admin: 05/24/18 11:47 Dose: 250 mg - Objective Vital Signs: Vital Signs Temperature 98.6 F 05/24/18 15:00 Pulse Rate 20 L 05/24/18 15:00 Respiratory Rate 20 05/24/18 09:55 Blood Pressure 134/76 05/24/18 15:00 O2 Sat by Pulse Oximetry (%) 98 05/24/18 09:00 Labs: CBC, BMP 05/24/18 06:20 05/24/18 06:20 INR, PTT INR 1.22 (0.83-1.09) H 05/24/18 06:20 <Chandrakant Navarro - Last Filed: 05/24/18 18:19> Problem List - Problems (1) Infectious diarrhea Assessment/Plan: >continue with flagyl IVPB and vancomycin PO >ID on board Code(s): A09 - INFECTIOUS GASTROENTERITIS AND COLITIS, UNSPECIFIED (2) Bloody diarrhea Assessment/Plan: >Stool OB positive >monitor H/H, current level 9.3/28.5 >transfuse if Hg <8.0 Code(s): R19.7 - DIARRHEA, UNSPECIFIED <Emelina Hong - Last Filed: 05/24/18 10:11> - Problems (1) Infectious diarrhea Code(s): A09 - INFECTIOUS GASTROENTERITIS AND COLITIS, UNSPECIFIED <Chandrakant Navarro - Last Filed: 05/24/18 18:19>
[2018-05-24] MEDS: FIDAXOMICIN 200 MG PO SCH ×2 (11:47→22:13)
--- NOTE | 2018-05-24 15:17 | PN ---
Progress Note (short form) - Note Progress Note: ID CONSULT DICTATED RECURRENT COLITIS / ETIOLOGY AWAIT STOOL STUDIES GI FOLLOW UP CONTINUE IV FLAGYL/PO VANCOMYCIN
--- NOTE | 2018-05-24 17:38 | PN ---
Teaching Attending Note Name of Resident: Josh Hurtado ATTENDING PHYSICIAN STATEMENT I saw and evaluated the patient. I reviewed the resident's note and discussed the case with the resident. I agree with the resident's findings and plan as documented. SUBJECTIVE: Patient is feeling better, having less diarrhea. OBJECTIVE: Vital Signs Temperature 98.6 F 05/24/18 15:00 Pulse Rate 93 05/24/18 15:00 Respiratory Rate 20 05/24/18 09:55 Blood Pressure 134/76 05/24/18 15:00 O2 Sat by Pulse Oximetry (%) 98 05/24/18 09:00 GENERAL: Awake, alert, and fully oriented, in no acute distress. HEAD: Normal with no signs of trauma. EYES: Pupils equal, round and reactive to light, extraocular movements intact, sclera anicteric, conjunctiva clear. EARS, NOSE, THROAT: Ears normal, oropharynx clear without exudates. Moist mucous membranes. NECK: Normal range of motion, supple without lymphadenopathy, JVD, or masses. LUNGS: Breath sounds equal, clear to auscultation bilaterally. No wheezes, and no crackles. No accessory muscle use. HEART: tachycardic , normal S1 and S2 without murmur, rub or gallop. ABDOMEN: Soft, mild abdominal tenderness nontender, not distended, normoactive bowel sounds, no guarding, no rebound, no masses. EXTREMITIES: 2+ pulses, warm, well-perfused. No calf tenderness. No peripheral edema. NEUROLOGICAL: Cranial nerves II-XII intact. Normal speech. PSYCHIATRIC: Cooperative. Good eye contact. Appropriate mood and affect. SKIN: Warm, dry, normal turgor, no rashes or lesions noted, normal capillary refill. CBCD WBC 12.5 K/mm3 (4.0-10.0) H 05/24/18 06:20 RBC 4.60 M/mm3 (3.60-5.2) 05/24/18 06:20 Hgb 9.3 GM/dL (10.7-15.3) L 05/24/18 06:20 Hct 28.5 % (32.4-45.2) L D 05/24/18 06:20 MCV 62.0 fl (80-96) L 05/24/18 06:20 MCHC 32.7 g/dl (32.0-36.0) 05/24/18 06:20 RDW 18.3 % (11.6-15.6) H 05/24/18 06:20 Plt Count 245 K/MM3 (134-434) D 05/24/18 06:20 MPV 9.3 fl (7.5-11.1) 05/24/18 06:20 CMP Sodium 141 mmol/L (136-145) 05/24/18 06:20 Potassium 3.9 mmol/L (3.5-5.1) 05/24/18 06:20 Chloride 109 mmol/L (98-107) H 05/24/18 06:20 Carbon Dioxide 23 mmol/L (21-32) 05/24/18 06:20 Anion Gap 9 MMOL/L (8-16) 05/24/18 06:20 BUN 11 mg/dL (7-18) 05/24/18 06:20 Creatinine 1.3 mg/dL (0.55-1.3) 05/24/18 06:20 Creat Clearance w eGFR 40.15 (>60) 05/24/18 06:20 Random Glucose 96 mg/dL (74-106) 05/24/18 06:20 Calcium 8.6 mg/dL (8.5-10.1) 05/24/18 06:20 Total Bilirubin 0.4 mg/dL (0.2-1) 05/23/18 11:40 AST 17 U/L (15-37) 05/23/18 11:40 ALT 24 U/L (13-61) 05/23/18 11:40 Alkaline Phosphatase 131 U/L (45-117) H 05/23/18 11:40 Total Protein 7.4 g/dl (6.4-8.2) 05/23/18 11:40 Albumin 3.6 g/dl (3.4-5.0) 05/23/18 11:40 Current Medications Generic Name Dose Route Start Last Admin Trade Name Freq PRN Reason Stop Dose Admin Acetaminophen 650 mg 05/23/18 20:29 05/24/18 05:39 Tylenol - PO 650 mg Q6H PRN Administration PAIN SCALE 1-5 OR FEVER Cholestyramine Resin 4 gm 05/23/18 22:00 05/24/18 09:44 Questran Light Packet - PO 4 gm BID JORGE Administration Metronidazole 500 mg in 100 mls @ 100 mls/hr 05/23/18 18:00 05/24/18 09:44 Flagyl 500mg Premixed Ivpb - IVPB 100 mls/hr Q8H-IV JORGE Administration Lactated Ringer's 1,000 ml in 1,000 mls @ 100 mls/hr 05/24/18 08:30 05/24/18 16:42 Lactated Ringers Solution IV 100 mls/hr ASDIR JORGE Administration Metoprolol Succinate 50 mg 05/24/18 10:00 05/24/18 09:44 Toprol Xl - PO 50 mg DAILY JORGE Administration Non-Formulary Medication 200 mg 05/24/18 10:45 05/24/18 11:47 Fidaxomicin PO 200 mg BID JORGE Administration Vancomycin HCl 250 mg 05/23/18 18:00 05/24/18 11:47 Vancomycin Oral Solution PO 250 mg Q6HPO JORGE Administration Home Medications Medication Instructions Recorded Furosemide [Lasix -] 20 mg PO DAILY 02/21/13 Zinc Sulfate [Orazinc -] 220 mg PO DAILY #0 capsule 02/24/13 Multivitamin [Multivitamins] 1 cap PO DAILY 08/02/13 Ascorbic Acid [Vitamin C -] 500 mg PO DAILY 04/25/18 Metoprolol Succinate 50 mg PO DAILY 04/29/18 Cholestyramine/Aspartame [Questran 4 gm PO DAILY #60 packet 05/08/18 Light Packet -] Fidaxomicin [Dificid (Nf) -] 200 mg PO BID #20 tablet 05/08/18 Vancomycin Oral Solution 250 mg PO Q6HPO #40 ml 05/08/18 ASSESSMENT AND PLAN: Patient is a 72yo female with PMHx of HTN, Diverticulosis/Diverticulitis s/p partial colectomy, Rectovaginal fistula s/p resection, s/p ileostomy s/p reversal recently discharged from the hospital on 05/08/18 with C-Diff colitis presented to ED.with bloody diarrhea x 3 days. As per patient stopped taking Vancomycin for 2 days prior giving herself a break. #Acute over chronic Diarrhea with hx of C-diff colitis on PO vancomycin/IV Flagyl and dificid 200mg po bid, patient may use it from home, ID consult. STool culture, ova and parasite, stool for cdiff antigen and toxin, cdiff pcr. ID on the case, GI consulted as well. #ARF on IVF LR continue # Acute Bloody Diarrhea ; [place] stool culture # Hx of IBS: on viberzi since 2017, on hold as per GI. #Hx of Hypertension: controlled, continue home medications #CHF stable now, cont. home meds. DVt Px: heparin sq
--- NOTE | 2018-05-24 18:16 | PN ---
Physical Exam: SUBJECTIVE: Patient seen and examined at bedside. endorses multiple BM's overnight. NAD. Resting comfortably. OBJECTIVE: Vital Signs Period Temp Pulse Resp BP Sys/Yañez Pulse Ox Last 24 Hr 97.9 F-98.6 F 20-112 18-20 118-150/67-76 97-98 GENERAL: NAD AAOX3 HEAD: Normal with no signs of trauma. EYES: eomi sclera clear EARS, NOSE, THROAT: MMM NECK: supple LUNGS: ctab HEART: rrr, no mrg nl s1s2 ABDOMEN: Nondistended Nonender No guarding or rigidity appreciated MUSCULOSKELETAL: No CCE LOWER EXTREMITIES: 1+ edema NEUROLOGICAL: Cranial nerves II-XII intact. Normal speech. Normal gait. PSYCHIATRIC: Cooperative. Good eye contact. Appropriate mood and affect. RECTAL: Rectal performed by myself in ED(05/23/18). Loose, watery stool surrounding rectum. No Win blood visualized. No hemorrhoids appreciated. Laboratory Results - last 24 hr 05/24/18 05/24/18 05/24/18 06:20 06:20 06:20 WBC 12.5 H RBC 4.60 Hgb 9.3 L Hct 28.5 L D MCV 62.0 L MCH 20.3 L MCHC 32.7 RDW 18.3 H Plt Count 245 D MPV 9.3 PT with INR 14.40 H INR 1.22 H PTT (Actin FS) 28.3 Sodium 141 Potassium 3.9 Chloride 109 H Carbon Dioxide 23 Anion Gap 9 BUN 11 Creatinine 1.3 Creat Clearance w eGFR 40.15 Random Glucose 96 Calcium 8.6 Phosphorus 3.6 Magnesium 1.9 Active Medications Generic Name Dose Route Start Last Admin Trade Name Freq PRN Reason Stop Dose Admin Acetaminophen 650 mg 05/23/18 20:29 05/24/18 05:39 Tylenol - PO 650 mg Q6H PRN Administration PAIN SCALE 1-5 OR FEVER Cholestyramine Resin 4 gm 05/23/18 22:00 05/24/18 09:44 Questran Light Packet - PO 4 gm BID JORGE Administration Metronidazole 500 mg in 100 mls @ 100 mls/hr 05/23/18 18:00 05/24/18 18:14 Flagyl 500mg Premixed Ivpb - IVPB Not Given Q8H-IV JORGE Lactated Ringer's 1,000 ml in 1,000 mls @ 100 mls/hr 05/24/18 08:30 05/24/18 16:42 Lactated Ringers Solution IV 100 mls/hr ASDIR JORGE Administration Metoprolol Succinate 50 mg 05/24/18 10:00 05/24/18 09:44 Toprol Xl - PO 50 mg DAILY JORGE Administration Non-Formulary Medication 200 mg 05/24/18 10:45 05/24/18 11:47 Fidaxomicin PO 200 mg BID JORGE Administration Vancomycin HCl 250 mg 05/23/18 18:00 05/24/18 11:47 Vancomycin Oral Solution PO 250 mg Q6HPO JORGE Administration ASSESSMENT/PLAN: Pt is a pleasant 72 y/o lady with a significant HTN, Diverticulosis/ Diverticulitis s/p partial colectomy, Rectovaginal fistula s/p resection, s/p ileostomy s/p reversal recently discharged 05/08/18 for VRE/C-Diff infection presented to [facility] c/o of blood diarrhea for 3 days. #C. Diff Colitis PCR, Toxin and Antigen Sent Stool Culture for ova and parasites -250 mg Vanco Q6H -Flagyl 500 mg Q8H -Restart pt's own medication, Fidoxomycin 200 po BID -Cholestryramine -GI Dr mccall on board #MARIANN Bun/Cr on admission--> 1.5. Now 01/21.3 Continue LR @ same rate #HTN Metoprolol Succinate 50 PO Daily Will hold Lasix in light of dehydration/Diarrhea #FEN #LR@100cc/hr Monitor Electrolytes Lactose Restricted Diet #DVT ppx: SCD's #Dispo: Tele Visit type - Emergency Visit Emergency Visit: Yes ED Registration Date: 05/23/18 Care time: The patient presented to the Emergency Department on the above date and was hospitalized for further evaluation of their emergent condition. - New Patient This patient is new to me today: No - Critical Care Critical Care patient: No - Discharge Referral Referred to [facility] Med P.C.: No
[2018-05-24] MEDS ORDERED: ONDANSETRON 4 MG/2 ML VIAL IVPUSH ONE (18:19)
[2018-05-25] MEDS: VANCOMYCIN 250 MG/5 ML ORAL SOLUTION PO SCH ×5 (00:12→23:32)
[2018-05-25 07:15] LABS: HEMATOCRIT 24.5 % (32.4-45.2); HEMOGLOBIN 8.1 GM/dL (10.7-15.3); MCH 20.7 pg (25.7-33.7); MCHC 33.3 g/dl (32.0-36.0); MEAN CELL VOLUME 62.2 fl (80-96); MEAN PLT VOLUME 9.2 fl (7.5-11.1); PLATELET COUNT 219 K/MM3 (134-434); RBC 3.93 M/mm3 (3.60-5.2); RDW 18.1 % (11.6-15.6); WHITE BLOOD COUNT 10.4 K/mm3 (4.0-10.0)
[2018-05-25 08:30] LABS: ANION GAP 8 MMOL/L (8-16); BLOOD UREA NITROGEN 9 mg/dL (7-18); CALCIUM 8.3 mg/dL (8.5-10.1); CHLORIDE 108 mmol/L (98-107); CO2 23 mmol/L (21-32); CREATININE 1.1 mg/dL (0.55-1.3); GLUCOSE,RANDOM 87 mg/dL (74-106); MAGNESIUM 1.8 mg/dL (1.8-2.4); PHOSPHOROUS 3.4 mg/dL (2.5-4.9); POTASSIUM 3.6 mmol/L (3.5-5.1); SODIUM 139 mmol/L (136-145)
--- NOTE | 2018-05-25 08:50 | PN ---
Progress Note, Physician History of Present Illness: GI FOLLOW UP NOTE Patient examined and case discussed with Dr. Navarro Patient examined lying in bed. Patient states after ingesting food yesterday began to have bloody diarrhea every two hours until about 1am. Patient said diarrhea subsided until about 5:30 am when diarrhea started again. Patient Hg dropped from 9.3 to 8.1 this morning. Denies abdominal pain, nausea, vomiting. - Current Medication List Current Medications: Active Medications Acetaminophen (Tylenol -) 650 mg PO Q6H PRN PRN Reason: PAIN SCALE 1-5 OR FEVER Last Admin: 05/24/18 22:13 Dose: 650 mg Metronidazole (Flagyl 500mg Premixed Ivpb -) 500 mg in 100 mls @ 100 mls/hr IVPB Q8H-IV [facility] Last Admin: 05/25/18 02:31 Dose: Not Given Lactated Ringer's (Lactated Ringers Solution) 1,000 ml in 1,000 mls @ 100 mls/ hr IV ASDIR [facility] Last Admin: 05/24/18 16:42 Dose: 100 mls/hr Metoprolol Succinate (Toprol Xl -) 50 mg PO DAILY [facility] Last Admin: 05/24/18 09:44 Dose: 50 mg Non-Formulary Medication (Fidaxomicin) 200 mg PO BID [facility] Last Admin: 05/24/18 22:13 Dose: 200 mg Vancomycin HCl (Vancomycin Oral Solution) 250 mg PO Q6HPO [facility] Last Admin: 05/25/18 05:54 Dose: 250 mg - Objective Vital Signs: Vital Signs Temperature 98.0 F 05/25/18 06:00 Pulse Rate 89 05/25/18 06:00 Respiratory Rate 20 05/25/18 06:00 Blood Pressure 148/64 05/25/18 06:00 O2 Sat by Pulse Oximetry (%) 98 05/24/18 21:00 Constitutional: Yes: No Distress, Calm Eyes: Yes: Conjunctiva Clear HENT: Yes: Atraumatic Cardiovascular: Yes: Regular Rate and Rhythm Respiratory: Yes: Regular, CTA Bilaterally Gastrointestinal: Yes: Normal Bowel Sounds, Soft, Other (non tender). No: WNL, Abdomen, Obese, Ascites, Distention, Hematemesis, Hemorrhoids, Hepatomegaly, Hernia, Hyperactive Bowel Sounds, Hypoactive Bowel Sounds, Melena, Palpable Mass , Pulsatile Mass, Rectal Bleeding, Splenomegaly, Tenderness, Tenderness, Epigastrium, Tenderness, Rebound, Vomiting Neurological: Yes: Alert, Oriented Psychiatric: Yes: Alert, Oriented Labs: CBC, BMP 05/25/18 06:30 05/25/18 06:30 INR, PTT INR 1.22 (0.83-1.09) H 05/24/18 06:20 Active Medications Generic Name Dose Route Start Last Admin Trade Name Freq PRN Reason Stop Dose Admin Acetaminophen 650 mg 05/23/18 20:29 05/24/18 22:13 Tylenol - PO 650 mg Q6H PRN Administration PAIN SCALE 1-5 OR FEVER Metronidazole 500 mg in 100 mls @ 100 mls/hr 05/23/18 18:00 05/25/18 02:31 Flagyl 500mg Premixed Ivpb - IVPB Not Given Q8H-IV JORGE Lactated Ringer's 1,000 ml in 1,000 mls @ 100 mls/hr 05/24/18 08:30 05/24/18 16:42 Lactated Ringers Solution IV 100 mls/hr ASDIR JORGE Administration Metoprolol Succinate 50 mg 05/24/18 10:00 05/24/18 09:44 Toprol Xl - PO 50 mg DAILY JORGE Administration Non-Formulary Medication 200 mg 05/24/18 10:45 05/24/18 22:13 Fidaxomicin PO 200 mg BID JOGRE Administration Vancomycin HCl 250 mg 05/23/18 18:00 05/25/18 05:54 Vancomycin Oral Solution PO 250 mg Q6HPO JORGE Administration Problem List - Problems (1) Infectious diarrhea Assessment/Plan: >continue with flagyl IVPB and fidaxomicin >ID on board Code(s): A09 - INFECTIOUS GASTROENTERITIS AND COLITIS, UNSPECIFIED (2) Bloody diarrhea Assessment/Plan: >Stool OB positive >monitor H/H, current Hg 8.1 >stat type and screen ordered >will transfuse 1 unit PRBC due to drop in Hg 8.1 and actively having bloody diarrhea >discontinued questran Code(s): R19.7 - DIARRHEA, UNSPECIFIED
--- NOTE | 2018-05-25 08:52 | PN ---
Physical Exam: SUBJECTIVE: Patient seen and examined at bedside. Endorses mutiple episodes of bloody diarrhea shortly after eating. OBJECTIVE: Vital Signs Period Temp Pulse Resp BP Sys/Yañez Pulse Ox Last 24 Hr 98.0 F-99 F 20-94 20-20 123-148/60-76 98-98 GENERAL: resting in bed comfortbly. no acute distress HEAD: Normal with no signs of trauma. EYES: eomi sclera clear EARS, NOSE, THROAT: MMM NECK: supple LUNGS: ctab HEART: rrr, no mrg nl s1s2 ABDOMEN: No distension, slightly tender epigastrium MUSCULOSKELETAL: No CCE LOWER EXTREMITIES: 1+ edema NEUROLOGICAL: Cranial nerves II-XII intact. Normal speech. Normal gait. PSYCHIATRIC: Cooperative. Good eye contact. Appropriate mood and affect. RECTAL: Rectal performed by myself in ED(05/23/18). Loose, watery stool surrounding rectum. No Win blood visualized. No hemorrhoids appreciated. Laboratory Results - last 24 hr 05/25/18 05/25/18 06:30 06:30 WBC 10.4 H RBC 3.93 Hgb 8.1 L Hct 24.5 L MCV 62.2 L MCH 20.7 L MCHC 33.3 RDW 18.1 H Plt Count 219 MPV 9.2 Sodium 139 Potassium 3.6 Chloride 108 H Carbon Dioxide 23 Anion Gap 8 BUN 9 Creatinine 1.1 Creat Clearance w eGFR 48.69 Random Glucose 87 Calcium 8.3 L Phosphorus 3.4 Magnesium 1.8 Active Medications Generic Name Dose Route Start Last Admin Trade Name Freq PRN Reason Stop Dose Admin Acetaminophen 650 mg 05/23/18 20:29 05/24/18 22:13 Tylenol - PO 650 mg Q6H PRN Administration PAIN SCALE 1-5 OR FEVER Metronidazole 500 mg in 100 mls @ 100 mls/hr 05/23/18 18:00 05/25/18 02:31 Flagyl 500mg Premixed Ivpb - IVPB Not Given Q8H-IV JORGE Lactated Ringer's 1,000 ml in 1,000 mls @ 100 mls/hr 05/24/18 08:30 05/24/18 16:42 Lactated Ringers Solution IV 100 mls/hr ASDIR JORGE Administration Metoprolol Succinate 50 mg 05/24/18 10:00 05/24/18 09:44 Toprol Xl - PO 50 mg DAILY JORGE Administration Non-Formulary Medication 200 mg 05/24/18 10:45 05/24/18 22:13 Fidaxomicin PO 200 mg BID JORGE Administration Vancomycin HCl 250 mg 05/23/18 18:00 05/25/18 05:54 Vancomycin Oral Solution PO 250 mg Q6HPO JORGE Administration ASSESSMENT/PLAN: Pt is a pleasant 72 y/o lady with a significant HTN, Diverticulosis/ Diverticulitis s/p partial colectomy, Rectovaginal fistula s/p resection, s/p ileostomy s/p reversal recently discharged 05/08/18 for VRE/C-Diff infection presented to [facility] c/o of blood diarrhea for 3 days. #C. Diff Colitis PCR, Toxin and Antigen both negative Stool Culture for ova and parasites pending -250 mg Vanco Q6H -Flagyl 500 mg Q8H - Fidoxomycin 200 po BID -Cholestryramine -GI Dr mccall on board # Anemia 2/2 GI Bleed 1 unit PRBC due to drop in Hg 8.1 #MARIANN Bun/Cr on admission--> 16/1.5. Now 9/1.1 05/25/18 Continue LR @ same rate #HTN Metoprolol Succinate 50 PO Daily Will hold Lasix in light of dehydration/Diarrhea #FEN #LR@100cc/hr Monitor Electrolytes Lactose Restricted Diet #DVT ppx: SCD's #Dispo: Tele Visit type - Emergency Visit Emergency Visit: Yes ED Registration Date: 05/23/18 Care time: The patient presented to the Emergency Department on the above date and was hospitalized for further evaluation of their emergent condition. - New Patient This patient is new to me today: No - Critical Care Critical Care patient: No - Discharge Referral Referred to [facility] Med P.C.: No
--- NOTE | 2018-05-25 09:02 | PN ---
Teaching Attending Note Name of Resident: Josh Hurtado ATTENDING PHYSICIAN STATEMENT I saw and evaluated the patient. I reviewed the resident's note and discussed the case with the resident. I agree with the resident's findings and plan as documented. SUBJECTIVE: Patient continues to have diarrhea but less than before. Feels better. OBJECTIVE: Vital Signs Temperature 98.0 F 05/25/18 06:00 Pulse Rate 89 05/25/18 06:00 Respiratory Rate 20 05/25/18 06:00 Blood Pressure 148/64 05/25/18 06:00 O2 Sat by Pulse Oximetry (%) 98 05/24/18 21:00 GENERAL: Awake, alert, and fully oriented, in no acute distress. HEAD: Normal with no signs of trauma. EYES: Pupils equal, round and reactive to light, extraocular movements intact, sclera anicteric, conjunctiva clear. EARS, NOSE, THROAT: Ears normal, oropharynx clear without exudates. Moist mucous membranes. NECK: Normal range of motion, supple without lymphadenopathy, JVD, or masses. LUNGS: Breath sounds equal, CTA bilaterally. No wheezes, and no crackles. No accessory muscle use. HEART: RRR , normal S1 and S2 without murmur, rub or gallop. ABDOMEN: Soft, mild abdominal tenderness, NT, incisional hernia at palpation ,ND , normoactive bowel sounds, no guarding, no rebound, no masses. EXTREMITIES: 2+ pulses, warm, well-perfused. No calf tenderness. No peripheral edema. NEUROLOGICAL: Cranial nerves II-XII intact. Normal speech. PSYCHIATRIC: Cooperative. Good eye contact. Appropriate mood and affect. SKIN: Warm, dry, normal turgor, no rashes or lesions noted, normal capillary refill. CBCD WBC 10.4 K/mm3 (4.0-10.0) H 05/25/18 06:30 RBC 3.93 M/mm3 (3.60-5.2) 05/25/18 06:30 Hgb 8.1 GM/dL (10.7-15.3) L 05/25/18 06:30 Hct 24.5 % (32.4-45.2) L 05/25/18 06:30 MCV 62.2 fl (80-96) L 05/25/18 06:30 MCHC 33.3 g/dl (32.0-36.0) 05/25/18 06:30 RDW 18.1 % (11.6-15.6) H 05/25/18 06:30 Plt Count 219 K/MM3 (134-434) 05/25/18 06:30 MPV 9.2 fl (7.5-11.1) 05/25/18 06:30 CMP Sodium 139 mmol/L (136-145) 05/25/18 06:30 Potassium 3.6 mmol/L (3.5-5.1) 05/25/18 06:30 Chloride 108 mmol/L (98-107) H 05/25/18 06:30 Carbon Dioxide 23 mmol/L (21-32) 05/25/18 06:30 Anion Gap 8 MMOL/L (8-16) 05/25/18 06:30 BUN 9 mg/dL (7-18) 05/25/18 06:30 Creatinine 1.1 mg/dL (0.55-1.3) 05/25/18 06:30 Creat Clearance w eGFR 48.69 (>60) 05/25/18 06:30 Random Glucose 87 mg/dL (74-106) 05/25/18 06:30 Calcium 8.3 mg/dL (8.5-10.1) L 05/25/18 06:30 Total Bilirubin 0.4 mg/dL (0.2-1) 05/23/18 11:40 AST 17 U/L (15-37) 05/23/18 11:40 ALT 24 U/L (13-61) 05/23/18 11:40 Alkaline Phosphatase 131 U/L (45-117) H 05/23/18 11:40 Total Protein 7.4 g/dl (6.4-8.2) 05/23/18 11:40 Albumin 3.6 g/dl (3.4-5.0) 05/23/18 11:40 Current Medications Generic Name Dose Route Start Last Admin Trade Name Freq PRN Reason Stop Dose Admin Acetaminophen 650 mg 05/23/18 20:29 05/24/18 22:13 Tylenol - PO 650 mg Q6H PRN Administration PAIN SCALE 1-5 OR FEVER Metronidazole 500 mg in 100 mls @ 100 mls/hr 05/23/18 18:00 05/25/18 02:31 Flagyl 500mg Premixed Ivpb - IVPB Not Given Q8H-IV JORGE Lactated Ringer's 1,000 ml in 1,000 mls @ 100 mls/hr 05/24/18 08:30 05/24/18 16:42 Lactated Ringers Solution IV 100 mls/hr ASDIR JORGE Administration Metoprolol Succinate 50 mg 05/24/18 10:00 05/24/18 09:44 Toprol Xl - PO 50 mg DAILY JORGE Administration Non-Formulary Medication 200 mg 05/24/18 10:45 05/24/18 22:13 Fidaxomicin PO 200 mg BID JORGE Administration Vancomycin HCl 250 mg 05/23/18 18:00 05/25/18 05:54 Vancomycin Oral Solution PO 250 mg Q6HPO JORGE Administration Home Medications Medication Instructions Recorded Furosemide [Lasix -] 20 mg PO DAILY 02/21/13 Zinc Sulfate [Orazinc -] 220 mg PO DAILY #0 capsule 02/24/13 Multivitamin [Multivitamins] 1 cap PO DAILY 08/02/13 Ascorbic Acid [Vitamin C -] 500 mg PO DAILY 04/25/18 Metoprolol Succinate 50 mg PO DAILY 04/29/18 Cholestyramine/Aspartame [Questran 4 gm PO DAILY #60 packet 05/08/18 Light Packet -] Fidaxomicin [Dificid (Nf) -] 200 mg PO BID #20 tablet 05/08/18 Vancomycin Oral Solution 250 mg PO Q6HPO #40 ml 05/08/18 Microbiology 05/24/18 00:00 Stool Salmonella/Shigella Culture - Preliminary Non Lactose Fermenting Gnb 05/24/18 00:00 Stool Yersinia Culture - Preliminary NO ENTERIC PATHOGENS, 24 HOURS, ON PRIMARY PLATES 05/24/18 00:00 Stool Vibrio Culture - Final NO GROWTH OF VIBRIO SPECIES OBTAINED 05/24/18 00:00 Stool Escherichia coli 0157 Culture - Final NO GROWTH OF E COLI 0157 OBTAINED 05/24/18 17:00 Stool Cryptosporidium Antigen - Final 05/24/18 17:00 Stool Giardia Antigen (BLANCA) - Final 05/24/18 17:00 Stool Isospora Smear - Preliminary 05/24/18 00:00 Stool Clostridium difficile (PCR) - Preliminary 05/24/18 00:00 Stool Clostridium difficile Antigen (BLANCA) - Final 05/24/18 00:00 Stool Clostridium difficile Toxin Assay - Final ASSESSMENT AND PLAN: Patient is a 72yo female with PMHx of HTN, Diverticulosis/Diverticulitis s/p partial colectomy, Rectovaginal fistula s/p resection, s/p ileostomy s/p reversal recently discharged from the hospital on 05/08/18 with C-Diff colitis presented to ED.with bloody diarrhea x 3 days. As per patient stopped taking Vancomycin for 2 days prior giving herself a break. #Acute over chronic Diarrhea with hx of C-diff colitis on Po vancomycin/IV Flagyl and dificid 200mg po bid continue, patient may use it from home, ID consult appreciated, follow the STool culture, ova and parasite, stool for cdiff antigen and toxin, cdiff pcr. ID on the case, GI consulted as well. Patient might need to stay on vancomycin for a long time with a taper dose. #ARF on IVF LR continue # Acute Bloody Diarrhea ; Oneill stool culture # Hx of IBS: on viberzi since 2017, on hold as per GI. #Hx of Hypertension: controlled, continue home medications #CHF stable now, cont. home meds. DVt Px: heparin sq
[2018-05-25] MEDS: LACTATED RINGERS SOLUTION 1,000 ML/1,000 ML INFUS.BAG IV SCH (09:36)
[2018-05-25] MEDS: FIDAXOMICIN 200 MG PO SCH ×2 (09:36→21:05)
[2018-05-25] MEDS ORDERED: PT OWN MED DRAWER 7, Y5N ONE ×3 (09:44→18:56)
--- NOTE | 2018-05-25 13:52 | EKG ---
Test Reason : Blood Pressure : / mmHG Vent. Rate : 116 BPM Atrial Rate : 116 BPM P-R Int : 128 ms QRS Dur : 080 ms QT Int : 320 ms P-R-T Axes : 042 -02 033 degrees QTc Int : 444 ms SINUS TACHYCARDIA ANTERIOR INFARCT (CITED ON OR BEFORE 25-APR-2018) ABNORMAL ECG WHEN COMPARED WITH ECG OF 25-APR-2018 13:01, QUESTIONABLE CHANGE IN INITIAL FORCES OF ANTERIOR LEADS Confirmed by MD Forrest, Cheng ([id number]) on 05/25/2018 1:52:05 PM Referred By: Confirmed By:Cheng Clayton MD
[2018-05-25] MEDS: ACETAMINOPHEN 325 MG TABLET (FP) PO PRN (19:22)
[2018-05-26] MEDS: LACTATED RINGERS SOLUTION 1,000 ML/1,000 ML INFUS.BAG IV SCH ×2 (03:55→12:40)
[2018-05-26] MEDS: VANCOMYCIN 250 MG/5 ML ORAL SOLUTION PO SCH ×3 (05:25→16:59)
[2018-05-26 06:12] LABS: HEMATOCRIT 28.3 % (32.4-45.2); HEMOGLOBIN 9.4 GM/dL (10.7-15.3); MCH 21.3 pg (25.7-33.7); MCHC 33.3 g/dl (32.0-36.0); MEAN CELL VOLUME 64.1 fl (80-96); MEAN PLT VOLUME 9.1 fl (7.5-11.1); PLATELET COUNT 231 K/MM3 (134-434); RBC 4.42 M/mm3 (3.60-5.2); RDW 19.7 % (11.6-15.6); WHITE BLOOD COUNT 10.5 K/mm3 (4.0-10.0)
[2018-05-26 06:47] LABS: ANION GAP 6 MMOL/L (8-16); BLOOD UREA NITROGEN 7 mg/dL (7-18); CALCIUM 8.1 mg/dL (8.5-10.1); CHLORIDE 106 mmol/L (98-107); CO2 27 mmol/L (21-32); CREATININE 1.1 mg/dL (0.55-1.3); GLUCOSE,RANDOM 87 mg/dL (74-106); MAGNESIUM 1.8 mg/dL (1.8-2.4); PHOSPHOROUS 3.5 mg/dL (2.5-4.9); POTASSIUM 3.7 mmol/L (3.5-5.1); SODIUM 139 mmol/L (136-145)
--- NOTE | 2018-05-26 09:33 | PN ---
Progress Note, Physician History of Present Illness: GI FOLLOW UP NOTE Patient examined and case discussed with Dr. Navarro Patient examined lying in bed. Patient is s/p 1 unit PRBC transfusion on 05/25/18 for Hg of 8.1. Patient complain of experiencing abdominal cramping before having 4 episodes of diarrhea yesterday. States her BM is more formed compared to watery consistency as before. RN reports of blood streaks in stool this morning. Complain of a soreness feeling to her abdomen, denies nausea or vomiting. - Current Medication List Current Medications: Active Medications Acetaminophen (Tylenol -) 650 mg PO Q6H PRN PRN Reason: PAIN SCALE 1-5 OR FEVER Last Admin: 05/25/18 19:22 Dose: 650 mg Metronidazole (Flagyl 500mg Premixed Ivpb -) 500 mg in 100 mls @ 100 mls/hr IVPB Q8H-IV [facility] Last Admin: 05/26/18 01:15 Dose: Not Given Lactated Ringer's (Lactated Ringers Solution) 1,000 ml in 1,000 mls @ 100 mls/ hr IV ASDIR [facility] Last Admin: 05/26/18 03:55 Dose: 100 mls/hr Metoprolol Succinate (Toprol Xl -) 50 mg PO DAILY [facility] Last Admin: 05/25/18 09:36 Dose: 50 mg Non-Formulary Medication (Fidaxomicin) 200 mg PO BID [facility] Last Admin: 05/25/18 21:05 Dose: 200 mg Vancomycin HCl (Vancomycin Oral Solution) 250 mg PO Q6HPO [facility] Last Admin: 05/26/18 05:25 Dose: 250 mg - Objective Vital Signs: Vital Signs Temperature 98.0 F 05/26/18 06:00 Pulse Rate 87 05/26/18 06:00 Respiratory Rate 18 05/26/18 06:00 Blood Pressure 128/71 05/26/18 06:00 O2 Sat by Pulse Oximetry (%) 98 05/25/18 21:00 Constitutional: Yes: Well Nourished, No Distress, Calm Eyes: Yes: Conjunctiva Clear HENT: Yes: Atraumatic Cardiovascular: Yes: Regular Rate and Rhythm Respiratory: Yes: Regular, CTA Bilaterally Gastrointestinal: Yes: Normal Bowel Sounds, Soft, Tenderness (minor diffuse tenderness). No: WNL, Abdomen, Obese, Ascites, Distention, Hematemesis, Hemorrhoids, Hepatomegaly, Hernia, Hyperactive Bowel Sounds, Hypoactive Bowel Sounds, Melena, Palpable Mass, Pulsatile Mass, Rectal Bleeding, Splenomegaly, Tenderness, Epigastrium, Tenderness, Rebound, Vomiting, Other Neurological: Yes: Alert, Oriented Labs: CBC, BMP 05/26/18 06:00 05/26/18 06:00 INR, PTT INR 1.22 (0.83-1.09) H 05/24/18 06:20 Problem List - Problems (1) Infectious diarrhea Assessment/Plan: >continue with flagyl IVPB and fidaxomicin >ID on board >current WBC 10.5, continue to monitor WBC daily Code(s): A09 - INFECTIOUS GASTROENTERITIS AND COLITIS, UNSPECIFIED (2) Bloody diarrhea Assessment/Plan: >Stool OB positive >monitor H/H daily, current Hg 9.4 >please transfuse when Hg <8.0 >discontinued questran > patient to be trasnferred to [facility] for further management Code(s): R19.7 - DIARRHEA, UNSPECIFIED
[2018-05-26] MEDS: FIDAXOMICIN 200 MG PO SCH (10:12)
[2018-05-26] MEDS ORDERED: PT OWN MED DRAWER 7, Y5N ONE ×2 (12:47→16:19)
[2018-05-26 14:45] VITALS: BP 122/59; PULSE 86; TEMP 98.7
--- NOTE | 2018-05-26 16:15 | PN ---
Teaching Attending Note Name of Resident: Josh Hurtado ATTENDING PHYSICIAN STATEMENT I saw and evaluated the patient. I reviewed the resident's note and discussed the case with the resident. I agree with the resident's findings and plan as documented. SUBJECTIVE: No fever or chills. had diarrhea this ma , did not count. stil with bloody BM. minimal Abd pain. OBJECTIVE: NAD. CV: RRR, 3/6 SM at base. Lungs: CTAB Abd: soft, old surgical scars. NT. NL BS Ext: No edema ASSESSMENT AND PLAN: 72 y/o lady with h/o recurrent C diff colitis, HTN, diverticulitis, s/p partial colectomy, recto-vaginal fistula s/p resection , CHF, and recent admission for pseudomembranous colitis who presented with diarrhea and hematochezia . 1- Diarrhea: Most likely infectious and due to c diff - cont po vanco , IV flagyl, and fidaxomicine - hold her home cholestramine and lasix - IV hydration - stool cx neg, c diff toxin and Ag negative ( was neg last admissions but Flex sig showed pseudomembranous colitis ) 2-Hematochezia: likely due to the infectious etiology but could be due to ischemic colitis form hypovolemia can't r/o AVMs or ulcers at level of anastomosis - s/p 1 unit of RBC Tx - monitor HB 3- H/o heart failure: cont to hold lasix . Cont toprol 4- DVT px : SCds Dispo : Tx to [facility] for further evaluation and other treatment options
--- NOTE | 2018-05-26 18:24 | DS ---
Physical Exam: SUBJECTIVE: Patient seen and examined at bedside. Continues to have blood streaked stool. OBJECTIVE: Vital Signs Period Temp Pulse Resp BP Sys/Yañez Pulse Ox Last 24 Hr 98.0 F-98.7 F 84-87 16-18 122-138/59-71 98-98 PHYSICAL EXAM GENERAL: NAD, AAOX3 HEAD: Normal with no signs of trauma. EYES: eomi sclera clear EARS, NOSE, THROAT: MMM NECK: supple LUNGS: ctab HEART: rrr, no mrg nl s1s2 ABDOMEN: Tenderness to deep palpation all 4 quadrants. MUSCULOSKELETAL: No CCE LOWER EXTREMITIES: 1+ edema NEUROLOGICAL: Cranial nerves II-XII intact. Normal speech. Normal gait. PSYCHIATRIC: Cooperative. Good eye contact. Appropriate mood and affect. RECTAL: Rectal performed by myself in ED(05/23/18). Loose, watery stool surrounding rectum. No Win blood visualized. No hemorrhoids appreciated. LABS Laboratory Results - last 24 hr 05/26/18 05/26/18 06:00 06:00 WBC 10.5 H RBC 4.42 Hgb 9.4 L Hct 28.3 L D MCV 64.1 L MCH 21.3 L MCHC 33.3 RDW 19.7 H Plt Count 231 MPV 9.1 Sodium 139 Potassium 3.7 Chloride 106 Carbon Dioxide 27 Anion Gap 6 L BUN 7 Creatinine 1.1 Creat Clearance w eGFR 48.69 Random Glucose 87 Calcium 8.1 L Phosphorus 3.5 Magnesium 1.8 HOSPITAL COURSE: Date of Admission:05/23/18 Pt is a pleasant 72 y/o lady with a significant HTN, Diverticulosis/ Diverticulitis s/p partial colectomy, Rectovaginal fistula s/p resection, s/p ileostomy s/p reversal recently discharged 05/08/18 for VRE/C-Diff infection who presented to [facility] c/o of blood diarrhea for 3 days. Pt underwent a CTAP which revealed colitis, please see report for further details. Pt was placed on contact precautions and restarted on Vancomycin, Flagyl and Fidoxamycin. during her stay, pt continued to have bloody stools. Pt's HGB dropped to 8.1 and was given 1 unit PRBC transfusion on 05/25/18. Pt was transferred to [facility] for further management as Nanda believed that pt would benefit from tertiary care center. Date of Discharge: 05/26/18 Minutes to complete discharge: 35 Discharge Summary Reason For Visit: HEMORRHAGIC DIARRHEA Current Active Problems Bloody diarrhea (Acute) C. difficile colitis (Acute) Infectious diarrhea (Acute) CHF (congestive heart failure) (Chronic) Diarrhea (Chronic) HTN (hypertension) (Chronic) Condition: Stable - Instructions Diet, Activity, Other Instructions: you presented to the hospital for bloody diarrhea , you received 1 unit of blood and we continue your treartment for C.diff diarrhea You will be transferred to [facility] Per Dr Navarro request for further evaluationand other treatment options We hold your lasix due to diarrhea and we hold Cholesteramin as well Please repeat blood count Please resume home meds including Vancomycin, Metronidazole and Fidaxomycin Referrals: Subha Cisse MD [Primary Care Provider] - 2 Weeks Chandrakant Navarro MD [Staff Physician] - Disposition: TRANSFER ACUTE CARE/OTHER HOSP - Home Medications Comprehensive Discharge Medication List: Ambulatory Orders Zinc Sulfate [Orazinc -] 220 mg PO DAILY #0 capsule 02/24/13 Multivitamin [Multivitamins] 1 cap PO DAILY 08/02/13 Ascorbic Acid [Vitamin C -] 500 mg PO DAILY 04/25/18 Metoprolol Succinate 50 mg PO DAILY 04/29/18 Fidaxomicin [Dificid -] 200 mg PO BID #20 tablet 05/08/18 Vancomycin Oral Solution 250 mg PO Q6HPO #40 ml 05/08/18 Acetaminophen [Tylenol .Regular Strength -] 650 mg PO Q6H PRN tablet 05/26/18 Metronidazole/Sodium Chloride [Metronidazole 500 mg/100 ml] 500 mg IV Q8H #30 ml 05/26/18 This patient is new to me today: No Emergency Visit: Yes ED Registration Date: 05/23/18 Care time: The patient presented to the Emergency Department on the above date and was hospitalized for further evaluation of their emergent condition. Critical Care patient: No - Discharge Referral Referred to [facility] Med [facility] No
== END 2018-05-26 18:40 | disposition short-term general hospital (02) | DRG 372 ==
LOC: JER 10:31 → JERBED 15:51 → J4S 19:42
PROVIDERS: ADMIT Internal Medicine; ATTEND Internal Medicine
PROC: 30233N1 Transfusion of Nonautologous Red Blood Cells into Peripheral Vein, Percutaneous Approach (ICD-10-PCS; principal; 2018-05-23)
DX: A04.72 Enterocolitis due to Clostridium difficile, not specified as recurrent (principal); K92.1 Melena; N17.9 Acute kidney failure, unspecified; I50.32 Chronic diastolic (congestive) heart failure; R71.0 Precipitous drop in hematocrit; I11.0 Hypertensive heart disease with heart failure; K58.0 Irritable bowel syndrome with diarrhea
CPT/HCPCS: 36415; 36430; 74176-TC; 80048; 80053; 82272; 83605; 83735; 84100; 85025; 85027; 85610; 85730; 86850; 86900; 86901; 86922; 87045; 87046; 87177; 87186; 87207; 87209; 87324; 87328; 87329; 87449; 87493; 87798; 93005; 93010; 99284-25; P9038; P9058